=== PATIENT | female | born 1950 | race Caucasian/White ===

== ENCOUNTER 2019-09-28 15:46 | Outpatient (CLI) | payer MEDICARE, SELFPAY ==
[2019-09-28 16:27] LABS: Creatinine Urine 80.74 mg/dL (40-278)
[2019-09-28 16:48] LABS: MALB Creatinine Ratio 5.6 mg/g (0-30); Microalbumin Urine Random 4.6 mg/L
[2019-10-02 09:44] LABS: Vitamin D 25 Hydroxy 69 ng/mL (30-100)
== END 2019-09-28 15:47 | disposition home or self-care (01) ==
LOC: CHSLAB 15:49
PROVIDERS: PCP Nurse Practitioner Family; Visit Provider Internal Medicine Endocrinology, Diabetes & Metabolism
DX: E11.65 Type 2 diabetes mellitus with hyperglycemia (principal); E55.9 Vitamin D deficiency, unspecified
CPT/HCPCS: 36415; 82043; 82306

== ENCOUNTER 2020-02-09 09:13 | Outpatient (RCR) | payer MEDICARE, SELFPAY ==
--- NOTE | 2020-02-09 10:01 | PTOPEVAL ---
Thank you for referring Nessa Mast to [facility].? The patient is scheduled to be seen for therapy? ____x/week for ___ weeks. Please review, sign, date and return this plan of care MADALYN. I agree with and certify that the following plan of care is medically necessary. Referring Physician Date Admitting Provider: Attending Provider: Brooke Ahumada NP Referring Provider: *PT Outpatient Evaluation Start: 02/09/20 09:15 Freq: Status: Active Protocol: Document 02/09/20 09:45 [facility] (Rec: 02/09/20 10:01 [facility] [id number]) Therapy Assessment Status Assessment Status Assessment Status Evaluation Outpatient Past Medical History Cardiovascular History Hx Chest Pain Yes Hx Hypertension Yes Gastrointestinal History Hx Cholecystectomy Yes Hx Gastroesophageal Reflux Disease Yes Musculoskeletal History Hx Fractures Yes: rt arm Hx Orthopedic Surgery Yes: ta knee Endocrine History Hx Diabetes Yes Reproductive History Hx Hysterectomy Yes Hx Post Menopausal Yes Psychosocial History Hx Anxiety Yes Hx Depression Yes Evaluation Information Problem Diagnosis lumbar spondylosis Onset 02/04/20 Additional Evaluation Detail oswestry = 32% Subjective Information patient reports she is having Query Text:As Reported By Patient/ a lot of pain in her back. Family she reports she has pain with all activities. she reports she has decreased pain when sitting or laying down and resting. she reports she has been having pain in the back for a few months. she reports no injections and no changes in medication. she reports she has had no recent x-rays or imaging. she reports she has no pain down the legs, but does have majority of pain in the lower back and L side posterior hip. she reports standing is worst activity for her to complete. Prior Level of Function Comments Additional Prior Level of Function prior to a few months ago, Comments patient reports feeling pretty good overall. she reports she drives around in her car a lot. Pain Assessment Timing of Pain Assessment T
--- NOTE | 2020-02-23 10:05 | PCPTNOTE ---
02/23/20-pt called and cancelled today's appointment secondary to not having any hot water. KARISSA.
== END 2020-03-10 15:28 | disposition home or self-care (01) ==
LOC: CHSPT 09:13
PROVIDERS: PCP Nurse Practitioner Family; Visit Provider Nurse Practitioner Family
DX: M47.816 Spondylosis without myelopathy or radiculopathy, lumbar region (principal)
CPT/HCPCS: 97014; 97110; 97161; G0283

== ENCOUNTER 2020-02-27 11:36 | Emergency (ER) | payer MEDICARE, SELFPAY ==
--- NOTE | ~2020-02-27 | XR_ITS ---
XR ankle RT min 3V 02/27/2020 12:00 INDICATION: Right ankle pain PROCEDURE: 4 views right ankle COMPARISON: No prior studies for comparison. FINDINGS: Fracture, dislocation or subluxation is not identified. The soft tissues appear within norm al limits. No foreign bodies are identified. IMPRESSION: 1: NO ACUTE BONE OR JOINT ABNORMALITY IDENTIFIED. Reviewed, dictated and finalized at location A.
--- NOTE | ~2020-02-27 | XR_ITS ---
EXAMINATION: XR chest 2V 02/27/2020 12:09 INDICATION: Status post fall. Bruising to the ribs. PROCEDURE: 2 view chest COMPARISON: 06/10/2019 FINDINGS: The lungs are clear. The cardiomediastinal silhouette is within normal limits. There are no pleural effusions. There is no pneumothorax suspected. There are age indeterminant right rib fra ctures. Elevated right diaphragm appears chronic. IMPRESSION: 1: No acute cardiopulmonary disease. 2: Age-indeterminate right rib fractures. Reviewed, dictated and finalized at location A.
[2020-02-27 11:56] VITALS: BP 139/77; PULSE 78; RESP 18; TEMP 36.7; O2SAT 98
--- NOTE | 2020-02-27 11:56 | ED.FALL ---
HPI - Fall General Chief Complaint: Extremity Injury, Lower Stated Complaint: Hurt right foot Source: patient Mode of arrival: ambulatory History of Present Illness HPI Narrative: Pt got up out of chair and fell down, she states she might have gotten a little lightheaded from getting up too quick. She has no loc, and has pain in r anle and r chest wall complaint: fall Onset (ago): hour(s) Fall from: standing Fall witnessed: no Place fall occurred: home Loss of consciousness: none Symptoms prior to fall: lightheadedness (gettting up too quickly) Location of injury: chest Location of injury - extremities: Left: ankle Severity: moderate Associated symptoms (after fall): denies Related Data Home Medications Medication Instructions Recorded Confirmed aspirin 81 mg tablet,delayed 81 mg PO DAILY 04/07/19 11/04/19 release blood sugar diagnostic #10 each 04/07/19 11/04/19 magnesium oxide 400 mg PO DAILY 04/07/19 11/04/19 nitroglycerin 0.4 mg sublingual 0.4 mg SUBLINGUAL Q5M PRN 04/07/19 11/04/19 tablet cholecalciferol (vitamin D3) 1,250 50,000 unit PO .twice weekly cap 06/04/19 11/04/19 mcg (50,000 unit) capsule semaglutide 1 mg/dose (2 mg/1.5 0.25 mg SUB-Q WEEKLY 06/04/19 11/04/19 mL) subcutaneous pen injector empagliflozin 10 mg tablet 10 mg PO DAILY 11/08/19 11/08/19 insulin syringe-needle U-100 0.5 #10 each 11/08/19 11/08/19 mL 30 gauge x 5/16 lancets 30 gauge #25 each 11/08/19 11/08/19 Allergies Allergy/AdvReac Type Severity Reaction Status Date / Time atorvastatin Allergy Severe Joint Pain Verified 02/04/20 08:13 cephalexin Allergy Mild Rash Verified 02/04/20 08:13 Review of Systems Review of Systems: All systems reviewed & are unremarkable except as noted in HPI and below PMFSH Past Medical History Medical History (Updated 02/27/20 @ 12:39 by Kelly Dickosn MD) Arm pain Blood type A+ CAD (coronary artery disease) Decreased hearing Depression Encounter for pre-operative examination Fatigue DENEEN (generalized anxiety disorder) Hyperlipidemia associated with type 2 diabetes mellitus Hypertension associated with diabetes Left hip pain Left shoulder pain Obesity, Class I, BMI 30-34.9 Osteoarthritis of lumbar spine Right humeral fracture Surgical repair, plate and 8 screws Type 2 diabetes mellitus URI (upper respiratory infection) Urinary urgency Surgical History Surgical History H/O cataract extraction History of back surgery (~1991) History of coronary artery stent placement History of total knee arthroplasty Family History Family History Father , Age 59 Acute myocardial infarction Mother , Age 84 Acute myocardial infarction Other Cystic fibrosis Other Cerebrovascular accident Family history of arthritis Hypertension Social History Social History Smoking status: Never smoker Alcohol intake: current Substance use: never 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 Gender identity (if verbalized by the patient): Female Exam Const: General: healthy appearing, no acute distress and alert Nutritional Appearance: well nourished Orientation/consciousness: patient oriented x3 HENMT: Head: normal to inspection Eyes: Conjunctivae: conjunctivae normal Pupils: Equal, round and reactive pupils present Neck: Neck: normal visual inspection Chest: Other: eccymosis to right lateral chest wall, no pain with deep breaths Resp: Effort & Inspection: normal respiratory effort Auscultation: clear to auscultation bilaterally Cardio: Rate: regular rate Rhythm: regular rhythm GI: GI Palp: Yes Soft to palpation, No Tenderness to palpation present (GI), No Guarding due to palpation present (GI) and No Rigid due to palpa
== END 2020-02-27 13:10 | disposition home or self-care (01) ==
PROVIDERS: Emergency Provider Emergency Medicine; PCP Nurse Practitioner Family
DX: S93.421A Sprain of deltoid ligament of right ankle, initial encounter (principal); S20.211A Contusion of right front wall of thorax, initial encounter; W19.XXXA Unspecified fall, initial encounter
CPT/HCPCS: 29515; 71046; 73610; 99283; 99284; L4350

== ENCOUNTER 2020-05-10 16:17 | Outpatient (CLI) | payer MEDICARE, SELFPAY ==
[2020-05-10 17:10] LABS: SARS-CoV-2 Ag Positive (Negative)
== END 2020-05-10 16:18 | disposition home or self-care (01) ==
PROVIDERS: PCP Nurse Practitioner Family; Visit Provider Nurse Practitioner Family
DX: U07.1 COVID-19 (principal)
CPT/HCPCS: 87426

== ENCOUNTER 2020-06-30 07:57 | Outpatient (CLI) | payer MEDICARE, SELFPAY ==
[2020-06-30 08:15] LABS: Basophils Absolute Auto 0.05 K/mm3 (0.00-0.10); Basophils Percent Auto 0.7 % (0.0-1.0); Eosinophils Absolute Auto 0.16 K/mm3 (0.02-0.50); Eosinophils Percent Auto 2.1 % (1.0-6.0); Hematocrit 41.4 % (35.0-42.0); Hemoglobin 13.2 g/dL (11.7-13.8); Immature Granulocyte Absolute 0.02 K/mm3 (0.00-0.00); Immature Granulocyte Percent A 0.3 % (0.0-0.0); Lymphocytes Absolute Auto 3.24 K/mm3 (1.10-4.50); Lymphocytes Percent Auto 43.5 % (18.0-42.0); Mean Corpuscular HGB Conc 31.9 g/dL (32.0-36.0); Mean Platelet Volume 9.6 fl (9.2-11.8); Monocytes Absolute Auto 0.55 K/mm3 (0.10-0.90); Monocytes Percent Auto 7.4 % (2.0-11.0); Neutrophils Absolute Auto 3.4 K/mm3 (1.7-7.2); Platelet Count Result 215 K/mm3 (150-420); Red Blood Count 4.55 M/mm3 (4.20-5.40); White Blood Count 7.5 K/mm3 (4.8-10.8)
[2020-06-30 08:32] LABS: Hemoglobin A1C 6.4 % (<5.7)
[2020-06-30 08:54] LABS: Alanine Aminotransferase 29 U/L (14-59); Albumin Level 3.9 g/dL (3.4-5.0); Alkaline Phosphatase 51 U/L (46-116); Anion Gap 8 mmol/L (8-16); Aspartate Amino Transferase 15 U/L (15-37); Bilirubin,Total 0.7 mg/dL (0.00-1.00); Blood Urea Nitrogen 17 mg/dL (7-18); Calcium 9.6 mg/dL (8.5-10.1); Carbon Dioxide 31 mmol/L (21-32); Chloride 104 mmol/L (98-108); Cholesterol 160 mg/dL (0-200); Estimated Glomerular Filt Rate 49; Glucose 164 mg/dL (70-99); HDL Direct 57 mg/dL (40-60); LDL Cholesterol Calculated 58 mg/dL (<130); Osmolality Calculated 301 mOsm/kg (285-295); Potassium 4.1 mmol/L (3.5-5.1); Sodium 143 mmol/L (136-145); Total Protein 7.2 g/dL (6.4-8.2); Triglycerides 224 mg/dL (0-150)
== END 2020-06-30 07:58 | disposition home or self-care (01) ==
LOC: CHSLAB 08:02
PROVIDERS: PCP Nurse Practitioner Family; Visit Provider Nurse Practitioner Family
DX: E11.59 Type 2 diabetes mellitus with other circulatory complications (principal); I10 Essential (primary) hypertension; E11.69 Type 2 diabetes mellitus with other specified complication; E78.5 Hyperlipidemia, unspecified
CPT/HCPCS: 36415; 80053; 80061; 83036; 85025

== ENCOUNTER 2020-08-15 14:34 | Outpatient (CLI) | payer MEDICARE, SELFPAY ==
[2020-08-15 15:49] LABS: Anion Gap 12 mmol/L (8-16); Blood Urea Nitrogen 19 mg/dL (7-18); Calcium 8.9 mg/dL (8.5-10.1); Carbon Dioxide 27 mmol/L (21-32); Chloride 102 mmol/L (98-108); Estimated Glomerular Filt Rate 53; Glucose 165 mg/dL (70-99); Osmolality Calculated 298 mOsm/kg (285-295); Potassium 4.1 mmol/L (3.5-5.1); Sodium 141 mmol/L (136-145)
[2020-08-17 10:39] LABS: Vitamin D 25 Hydroxy 50 ng/mL (30-100)
== END 2020-08-15 14:35 | disposition home or self-care (01) ==
LOC: CHSLAB 14:36
PROVIDERS: PCP Nurse Practitioner Family; Visit Provider Internal Medicine Endocrinology, Diabetes & Metabolism
DX: E55.9 Vitamin D deficiency, unspecified (principal)
CPT/HCPCS: 36415; 80048; 82306

== ENCOUNTER 2020-11-13 10:59 | Outpatient (RCR) | payer MEDICARE, SELFPAY ==
--- NOTE | 2020-11-13 11:27 | PTOPEVAL ---
Thank you for referring Nessa Mast to [facility].? The patient is scheduled to be seen for therapy? __3__x/week for 12 visits. Please review, sign, date and return this plan of care MADALYN. I agree with and certify that the following plan of care is medically necessary. Referring Physician Date Admitting Provider: Attending Provider: TEENA HARRIS Referring Provider: *PT Outpatient Evaluation Start: 11/13/20 10:57 Freq: Status: Active Protocol: Document 11/13/20 11:06 [facility] (Rec: 11/13/20 11:27 [id number]) Therapy Assessment Status Assessment Status Assessment Status Evaluation Outpatient Past Medical History Cardiovascular History Hx Chest Pain Yes Hx Hypertension Yes Gastrointestinal History Hx Cholecystectomy Yes Hx Gastroesophageal Reflux Disease Yes Musculoskeletal History Hx Fractures Yes: rt arm Hx Orthopedic Surgery Yes: ta knee Endocrine History Hx Diabetes Yes Reproductive History Hx Post Menopausal Yes Psychosocial History Hx Anxiety Yes Hx Depression Yes Evaluation Information Problem Diagnosis right shoulder pain Onset 10/29/20 Subjective Information Pt. reports she fell while at Query Text:[place] airport [place] Family dislocating the right shoulder . She reports she had the arm put in place in the ER that evening. She states that she was given a sling and not given any instruction. She reports she has not been doing anything with her arm. She states that she has not been given clear instruction regarding her shoulder. She states that her goal is to regain normal shoulder mobility and strength and discontinue her sling. Prior Level of Function Activity Level (Last 3 Months) Occupation retired Hand Dominance Right Activity of Daily Living Ability Independent Indoor/Home Mobility Independent Community Mobility Independent Stairs Ability Independent Functional Cognition (Planning, Shopping Independent , Taking Medications) Cooking Yes Cleaning Yes Laundry Yes Shopping Yes
--- NOTE | 2020-11-13 13:03 | PTOPEVAL ---
Thank you for referring Nessa Mast to [facility].? The patient is scheduled to be seen for therapy? _3___x/week for 12 visits. Please review, sign, date and return this plan of care MADALYN. I agree with and certify that the following plan of care is medically necessary. Referring Physician Date Admitting Provider: Attending Provider: TEENA HARRIS Referring Provider: *PT Outpatient Evaluation Start: 11/13/20 10:57 Freq: Status: Active Protocol: Document 11/13/20 11:06 [facility] (Rec: 11/13/20 11:27 [id number]) Therapy Assessment Status Assessment Status Assessment Status Evaluation Outpatient Past Medical History Cardiovascular History Hx Chest Pain Yes Hx Hypertension Yes Gastrointestinal History Hx Cholecystectomy Yes Hx Gastroesophageal Reflux Disease Yes Musculoskeletal History Hx Fractures Yes: rt arm Hx Orthopedic Surgery Yes: ta knee Endocrine History Hx Diabetes Yes Reproductive History Hx Post Menopausal Yes Psychosocial History Hx Anxiety Yes Hx Depression Yes Evaluation Information Problem Diagnosis right shoulder pain Onset 10/29/20 Subjective Information Pt. reports she fell while at Query Text:As Reported By Patient/ the airport on [place] 29 Family dislocating the right shoulder . She reports she had the arm put in place in the ER that evening. She states that she was given a sling and not given any instruction. She reports she has not been doing anything with her arm. She states that she has not been given clear instruction regarding her shoulder. She states that her goal is to regain normal shoulder mobility and strength and discontinue her sling. Prior Level of Function Activity Level (Last 3 Months) Occupation retired Hand Dominance Right Activity of Daily Living Ability Independent Indoor/Home Mobility Independent Community Mobility Independent Stairs Ability Independent Functional Cognition (Planning, Shopping Independent , Taking Medications) Cooking Yes Cleaning Yes Laundry Yes Shopping Yes
--- NOTE | 2020-12-07 16:20 | PCPTNOTE ---
Patient is a 70 year old female that participated in 9 visits for R shoulder pain. The patient underwent an MRI and has a large rotator cuff tear. The patient is going to an orthopedic surgeon on December 27 for the next steps. The patient is to be discharged from therapy at this time. Please refer to previous treatment note for discharge status. Thank you, Nava Osullivan DPT
== END 2020-12-01 08:45 | disposition home or self-care (01) ==
LOC: CHSPT 10:59
DX: M25.511 Pain in right shoulder (principal)
CPT/HCPCS: 97014; 97110; 97161; G0283

== ENCOUNTER 2020-12-02 09:05 | Outpatient (CLI) | payer MEDICARE, SELFPAY ==
--- NOTE | ~2020-12-02 | MR_ITS ---
EXAMINATION: MR shoulder RT wo con DATE: 12/02/2020 09:46 INDICATION: Unspecified dislocation of the right shoulder joint. TECHNIQUE: Magnetic resonance imaging (MRI) of the right shoulder was performed without intravenous c ontrast. Sequences included axial PD-weighted FS FSE, coronal oblique PD-weighted FS FSE, coronal obl ique T2-weighted FS FSE, sagittal PD-weighted FS FSE, and sagittal T1-weighted SE. COMPARISON: None. FINDINGS: Coracoacromial arch: The acromion undersurface is curved in morphology (type II). This is due in part to small subacromial spurs and likely chronic remodeling of the undersurface which now parallels the contour of the humer al head. There is mild thickening of the acromial side of the coracoacromial ligament. Mild to modera te acromioclavicular osteoarthritis with small predominately cephalad directed hypertrophic osteophyt es and mild cystic change at the lateral head of the clavicle. Rotator cuff: Large full-thickness rotator cuff tear along the entire greater tuberosity insertion of the supraspin atus and infraspinatus tendons and the cephalad two thirds of the lesser tuberosity footplate of the subscapularis tendon. This is likely chronic given the severe associated fatty atrophy of the associa verito rotator cuff musculature. There is retraction of the supraspinatus tear margin to slightly medial to the level of the rim of the glenoid. There is some heterotopic ossification along the similarly m edially retracted infraspinatus tear margin. Mild tendinopathy of the teres minor tendon with small p artial tear along the cephalad margin of the myotendinous junction. No significant teres minor muscul ar atrophy. Biceps tendon, glenoid labrum and glenohumeral cartilage: Longitudinal split tearing of the long head biceps tendon which is medially subluxed across the lesse r tuberosity footplate of the torn subscapularis tendon. There is a longitudinal split tearing of the long head biceps tendon. Degenerative tearing at the anteroinferior and posterosuperior glenoid labr um. There is partial thickness cartilage loss which appears to involve greater than 50% the cartilage thickness with smooth chondral surface along the cephalad margin of the glenoid. Additional mild par tial thickness cartilage loss with some chondral surface irregularity along the humeral head. Fluid: Small glenohumeral joint effusion which extends through the full-thickness rotator cuff tear into the subacromial/subdeltoid bursa. No loose osteochondral bodies. Bones: Old fracture at the surgical neck of the proximal right humerus which has without significant deformi ty. There is metallic magnetic field artifact surrounding a likely lateral plate and screw fixation a long the proximal humeral diaphysis which mildly limits evaluation below the level of the shoulder. T here is cephalad migration of the humeral head with respect to the glenoid with narrowing of the suba cromial space. IMPRESSION: 1. 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 Mild teres minor tendinopathy with mild partial tear along the cephalad margin of the myotendinous junction. 2. Mild to moderate glenohumeral osteoarthritis with degenerative tearing of the posterosuperior and anteroinferior glenoid labrum and likely reactive small glenohumeral joint effusion. 3. Old healed fracture to surgical neck of the proximal right humerus. 4. Mild to moderate acromioclavicular osteoarthritis. Reviewed, dictated and finalized at location A. IMPRESSION: 1. Large chronic full-thickness tear of the cyst supraspinatus, infraspinatus a nd cephalad two thirds of the subscapularis tendon
== END 2020-12-02 09:06 | disposition home or self-care (01) ==
LOC: CHSIMG 09:06
PROVIDERS: PCP Nurse Practitioner Family; Visit Provider Nurse Practitioner Family
DX: S43.004A Unspecified dislocation of right shoulder joint, initial encounter (principal); M25.611 Stiffness of right shoulder, not elsewhere classified
CPT/HCPCS: 73221

== ENCOUNTER 2020-12-06 07:30 | Emergency (ER) | payer MEDICARE, SELFPAY ==
--- NOTE | ~2020-12-06 | XR_ITS ---
EXAMINATION: XR knee RT min 4V DATE: 12/06/2020 08:32 INDICATION: Right knee pain TECHNIQUE: Five views of the right knee were obtained on six radiographs. COMPARISON: 11/11/2018 FINDINGS: There are changes of total knee arthroplasty. No fracture is identified. There is chronic l ateral subluxation of the patella. Soft tissue swelling surrounds the knee. A small knee joint effusi on is present. Calcified atherosclerosis is noted. IMPRESSION: 1. Right knee swelling without acute osseous abnormality. Reviewed, dictated and finalized at location B.
[2020-12-06 07:40] VITALS: BP 147/84; PULSE 102; RESP 16; TEMP 36.6; O2SAT 96
--- NOTE | 2020-12-06 08:41 | ED.FALL ---
HPI - Fall General Chief Complaint: Fall Stated Complaint: KNEE PAIN FELL OUT OF BED Time Seen by Provider: 12/06/20 08:00 Source: patient Mode of arrival: ambulatory Limitations: no limitations History of Present Illness HPI Narrative: Patient comes in after rolling out of bed about 7am. She landed with weight hitting on her right knee, causing bruising. She is worried she has injured her metal joint on the knee. Discomfort is right knee has been mild, a dull ache, and has been ongoing since the fall about 30m minutes ago. She has been able to walk without difficulty. Pain has not lessened or became more severe with ambulation. No other signs / symptoms. MD complaint: fall Onset (ago): minute(s) Fall from: out of bed Place fall occurred: home Loss of consciousness: none Prolonged down time: no Symptoms prior to fall: none Severity: mild Quality: burning and dull Related Data Home Medications Medication Instructions Recorded Confirmed aspirin 81 mg tablet,delayed 81 mg PO DAILY 04/07/19 12/06/20 release blood sugar diagnostic #10 each 04/07/19 12/06/20 cholecalciferol (vitamin D3) 1,250 50,000 unit PO .twice weekly cap 06/04/19 12/06/20 mcg (50,000 unit) capsule semaglutide 1 mg/dose (2 mg/1.5 0.25 mg SUB-Q WEEKLY 06/04/19 12/06/20 mL) subcutaneous pen injector empagliflozin 10 mg tablet 10 mg PO DAILY 11/08/19 12/06/20 insulin syringe-needle U-100 0.5 #10 each 11/08/19 12/06/20 mL 30 gauge x 5/16 lancets 30 gauge #25 each 11/08/19 12/06/20 Allergies Allergy/AdvReac Type Severity Reaction Status Date / Time atorvastatin Allergy Severe Joint Pain Verified 11/10/20 15:14 cephalexin Allergy Mild Rash Verified 11/10/20 15:14 Review of Systems Constitutional: Constitutional: Reports no additional constitutional complaints Eyes: Eyes: Reports no additional eye complaints ENT: Reports system reviewed and no additional complaints, except as documented Cardiovascular: Cardiovascular: Reports no additional cardiovascular complaints Respiratory: Respiratory: Reports no additional respiratory complaints Gastrointestinal: Gastrointestinal: Reports no additional gastrointestinal complaints Genitourinary: Genitourinary: Reports no additional female genitourinary complaints Musculoskeletal: Musculoskeletal: Reports no additional musculoskeletal complaints Integumentary/Breasts: Skin/Breast: Reports system reviewed and no additional complaints, except as docu Neurologic: Reports system reviewed and no additional complaints, except as documented Psychiatric: Psychiatric: Reports no additional psychiatric complaints Endocrine: Endocrine: Reports no additional endocrine complaints Hematologic/Lymphatic: Hematologic/Lymphatic: Reports no additional hematologic/lymphatic complaints Allergic/Immunologic: Allergic/Immunologic: Reports no additional allergic/immunologic complaints [facility] Past Medical History Medical History (Updated 12/07/20 @ 04:23 by Guy Christopher MD) Arm pain Blood type A+ CAD (coronary artery disease) Decreased hearing Depression Encounter for pre-operative examination Fatigue DENEEN (generalized anxiety disorder) Hyperlipidemia associated with type 2 diabetes mellitus Hypertension associated with diabetes Left hip pain Left shoulder pain Obesity, Class I, BMI 30-34.9 Osteoarthritis of lumbar spine Right humeral fracture Surgical repair, plate and 8 screws Type 2 diabetes mellitus URI (upper respiratory infection) Urinary urgency Surgical History Surgical History H/O cataract extraction History of back surgery (~1991) History of coronary artery stent placement History of total knee arthroplasty Family History Family History Father , Age 59 Acute myocardial infarction Mother , Age 84 Acute myocardial infarction Other Cystic fibrosis Ot
[2020-12-06 08:57] VITALS: PULSE 100; RESP 20; TEMP 36.1; O2SAT 98
== END 2020-12-06 08:57 | disposition home or self-care (01) ==
PROVIDERS: Emergency Provider Emergency Medicine; PCP Nurse Practitioner Family
DX: S80.01XA Contusion of right knee, initial encounter (principal); W06.XXXA Fall from bed, initial encounter
CPT/HCPCS: 73564; 99282; 99283

== ENCOUNTER 2021-01-25 10:58 | Outpatient (RCR) | payer MEDICARE, SELFPAY ==
--- NOTE | 2021-01-25 11:45 | PTOPEVAL ---
Thank you for referring Nessa Mast to [facility] [place] The patient is scheduled to be seen for therapy? ____x/week for ___ weeks. Please review, sign, date and return this plan of care MADALYN. I agree with and certify that the following plan of care is medically necessary. Referring Physician Date Admitting Provider: Attending Provider: Joshua Sifuentes, TRICIA Referring Provider: *PT Outpatient Evaluation Start: 01/25/21 11:07 Freq: Status: Active Protocol: Document 01/25/21 11:10 [facility] (Rec: 01/25/21 11:41 [facility] [id number]) Therapy Assessment Status Assessment Status Assessment Status Evaluation Outpatient Past Medical History Cardiovascular History Hx Chest Pain Yes Hx Hypertension Yes Gastrointestinal History Hx Cholecystectomy Yes Hx Gastroesophageal Reflux Disease Yes Musculoskeletal History Hx Fractures Yes: rt arm Hx Orthopedic Surgery Yes: ta knee Endocrine History Hx Diabetes Yes Reproductive History Hx Post Menopausal Yes Psychosocial History Hx Anxiety Yes Hx Depression Yes Evaluation Information Problem Diagnosis R shoulder pain, RTC arthropathy Onset 10/29/20 Additional Evaluation Detail quick dash = Subjective Information patient reports she fell on Query Text:As Reported By Patient and injured her R Family shoulder. she reports had an MRI back on 12/02/20 that reveals a chronic full thickness RTC tear with muscle atrophy and GH OA with a degenerative labral tear. she presents this date without having been able to lift/move her R shoulder/arm away from her body since the fall. she reports she has no pain. she reports she has not had any surgical consult yet. Prior Level of Function Comments Additional Prior Level of Function prior to fall, no issues with Comments the R shoulder, full mobility, and normal strength Pain Assessment Timing of Pain Assessment Timing of Pain Assessment Assessment Self Report Self Report Pain Level 0 Pain Score Pain Score 0: Self Report Upper Extremity Range of Motion Scapular/ Shoulder Range of Motion Right Shoulder Flexion - Active 30 Shoulder Medial Rotation - Active functional reach to midline Query Text:Reach Behi
--- NOTE | 2021-01-25 11:56 | PTOPEVAL ---
Thank you for referring Nessa Mast to [facility] [place]Note 3[facility]? The patient is scheduled to be seen for therapy? ____x/week for ___ weeks. Please review, sign, date and return this plan of care MADALYN. I agree with and certify that the following plan of care is medically necessary. Referring Physician Date Admitting Provider: Attending Provider: Joshua Sifuentes, PA Referring Provider: *PT Outpatient Evaluation Start: 01/25/21 11:07 Freq: Status: Active Protocol: Document 01/25/21 11:10 [facility] (Rec: 01/25/21 11:41 [facility] [id number]) Therapy Assessment Status Assessment Status Assessment Status Evaluation Outpatient Past Medical History Cardiovascular History Hx Chest Pain Yes Hx Hypertension Yes Gastrointestinal History Hx Cholecystectomy Yes Hx Gastroesophageal Reflux Disease Yes Musculoskeletal History Hx Fractures Yes: rt arm Hx Orthopedic Surgery Yes: ta knee Endocrine History Hx Diabetes Yes Reproductive History Hx Post Menopausal Yes Psychosocial History Hx Anxiety Yes Hx Depression Yes Evaluation Information Problem Diagnosis R shoulder pain, RTC arthropathy Onset 10/29/20 Additional Evaluation Detail quick dash = 100% functionally declined Subjective Information patient reports she fell on Query Text:As Reported By Patient and injured her R Family shoulder. she reports had an MRI back on 12/02/20 that reveals a chronic full thickness RTC tear with muscle atrophy and GH OA with a degenerative labral tear. she presents this date without having been able to lift/move her R shoulder/arm away from her body since the fall. she reports she has no pain. she reports she has not had any surgical consult yet. Prior Level of Function Comments Additional Prior Level of Function prior to fall, no issues with Comments the R shoulder, full mobility, and normal strength Pain Assessment Timing of Pain Assessment Timing of Pain Assessment Assessment Self Report Self Report Pain Level 0 Pain Score Pain Score 0: Self Report Upper Extremity Range of Motion Scapular/ Shoulder Range of Motion Right Shoulder Flexion - Active 30 Shoulder Flexion - Passiv
--- NOTE | 2021-02-20 15:30 | PTOPEVAL ---
Thank you for referring Nessa Mast to [facility].? The patient is scheduled to be seen for therapy? ____x/week for ___ weeks. Please review, sign, date and return this plan of care MADALYN. I agree with and certify that the following plan of care is medically necessary. Referring Physician Date Admitting Provider: Attending Provider: Joshua Sifuentes, PA Referring Provider: *PT Outpatient Evaluation Start: 01/25/21 11:07 Freq: Status: Active Protocol: Document 02/20/21 14:26 [facility] (Rec: 02/20/21 15:13 [facility] [id number]) Therapy Assessment Status Assessment Status Assessment Status Progress Outpatient Past Medical History Cardiovascular History Hx Chest Pain Yes Hx Hypertension Yes Gastrointestinal History Hx Cholecystectomy Yes Hx Gastroesophageal Reflux Disease Yes Musculoskeletal History Hx Fractures Yes: rt arm Hx Orthopedic Surgery Yes: ta knee Endocrine History Hx Diabetes Yes Reproductive History Hx Post Menopausal Yes Psychosocial History Hx Anxiety Yes Hx Depression Yes Evaluation Information Problem Diagnosis R shoulder pain, RTC arthropathy Onset 10/29/20 Subjective Information patient reports she continues Query Text:As Reported By Patient/ to have pain in the R shoulder Family and pain in her bilateral hands this date. she reports she continues to stuggle with use of the R shoulder/arm away from her body/side. Pain Assessment Timing of Pain Assessment Timing of Pain Assessment Assessment Pain Scale Pain Scale Used Numeric (1 - 10) Self Report Pain Assessment Right Shoulder(s) Reported Pain Level 6 Pain Score Pain Score 6: Self Report Interventions Used Interventions Used By Clinicians Activity or ADL's,Electrical Stimulation,Exercise,Heat Upper Extremity Range of Motion General Upper Extremity Range of Motion Gross Upper Extremity Range of Motion 155 degrees supine arom R Comments shoulder flexion - patient unable to achieve sitting or standing shoulder flexion past 30-40 degrees Upper Extremity Muscle Strength Testing General Upper Extremity Strength Gross Upper Extremity Strength Comments R shoudler flex, abd, and ER = 2/5 General Exercise General Exercises Exercise Description -passive shoulder rom 15 Query Text:Record Sets, Reps, minutes Resistance, and Position
--- NOTE | 2021-02-22 14:43 | PTOPEVAL ---
Thank you for referring Nessa Mast to [facility].? The patient is scheduled to be seen for therapy? ____x/week for ___ weeks. Please review, sign, date and return this plan of care MADALYN. I agree with and certify that the following plan of care is medically necessary. Referring Physician Date Admitting Provider: Attending Provider: Joshua Sifuentes, PA Referring Provider: *PT Outpatient Evaluation Start: 01/25/21 11:07 Freq: Status: Active Protocol: Document 02/20/21 14:26 [facility] (Rec: 02/20/21 15:13 [facility] [id number]) Therapy Assessment Status Assessment Status Assessment Status Progress Outpatient Past Medical History Cardiovascular History Hx Chest Pain Yes Hx Hypertension Yes Gastrointestinal History Hx Cholecystectomy Yes Hx Gastroesophageal Reflux Disease Yes Musculoskeletal History Hx Fractures Yes: rt arm Hx Orthopedic Surgery Yes: ta knee Endocrine History Hx Diabetes Yes Reproductive History Hx Post Menopausal Yes Psychosocial History Hx Anxiety Yes Hx Depression Yes Evaluation Information Problem Diagnosis R shoulder pain, RTC arthropathy Onset 10/29/20 Subjective Information patient reports she continues Query Text:As Reported By Patient/ to have pain in the R shoulder Family and pain in her bilateral hands this date. she reports she continues to stuggle with use of the R shoulder/arm away from her body/side. Pain Assessment Timing of Pain Assessment Timing of Pain Assessment Assessment Pain Scale Pain Scale Used Numeric (1 - 10) Self Report Pain Assessment Right Shoulder(s) Reported Pain Level 6 Pain Score Pain Score 6: Self Report Interventions Used Interventions Used By Clinicians Activity or ADL's,Electrical Stimulation,Exercise,Heat Upper Extremity Range of Motion General Upper Extremity Range of Motion Gross Upper Extremity Range of Motion 155 degrees supine arom R Comments shoulder flexion - patient unable to achieve sitting or standing shoulder flexion past 30-40 degrees Upper Extremity Muscle Strength Testing General Upper Extremity Strength Gross Upper Extremity Strength Comments R shoudler flex, abd, and ER = 2/5 General Exercise General Exercises Exercise Description -passive shoulder rom 15 Query Text:Record Sets, Reps, minutes Resistance, and Position
--- NOTE | 2021-03-15 11:08 | PTOPEVAL ---
Thank you for referring Nessa Mast to [facility].? The patient is scheduled to be seen for therapy? ____x/week for ___ weeks. Please review, sign, date and return this plan of care MADALYN. I agree with and certify that the following plan of care is medically necessary. Referring Physician Date Admitting Provider: Attending Provider: Joshua Sifuentes, PA Referring Provider: *PT Outpatient Evaluation Start: 01/25/21 11:07 Freq: Status: Active Protocol: Document 03/15/21 10:07 [facility] (Rec: 03/15/21 11:08 [facility] [id number]) Therapy Assessment Status Assessment Status Assessment Status Progress Outpatient Past Medical History Cardiovascular History Hx Chest Pain Yes Hx Hypertension Yes Gastrointestinal History Hx Cholecystectomy Yes Hx Gastroesophageal Reflux Disease Yes Musculoskeletal History Hx Fractures Yes: rt arm Hx Orthopedic Surgery Yes: ta knee Endocrine History Hx Diabetes Yes Reproductive History Hx Post Menopausal Yes Psychosocial History Hx Anxiety Yes Hx Depression Yes Evaluation Information Problem Diagnosis R shoulder pain, RTC arthropathy Subjective Information Patient reports that she was Query Text:As Reported By Patient/ lifting her arm above shoulder Family level the other day. Patient reports she has not had any pain and is still not considering surgery. Pain Assessment Timing of Pain Assessment Timing of Pain Assessment Assessment Self Report Self Report Pain Level 0 Pain Score Pain Score 0: Self Report Upper Extremity Range of Motion Scapular/ Shoulder Range of Motion Right Shoulder Flexion - Active 40 Shoulder Flexion - Passive 160 Shoulder Medial Rotation - Active 53 Shoulder Medial Rotation - Active functional reach to thoracic Query Text:Reach Behind the Back spine with shoulder adduction, IR, and minimal trunk flexion . Shoulder Lateral Rotation - Active 70 Shoulder Lateral Rotation - Active functional reach to base of Query Text:Reach Behind the Head skull but has to use momentum to get arm up. Upper Extremity Muscle Strength Testing Scapular/Shoulder Right Shoulder Flexion Strength 2 Poor Shoulder Abduction Strength 2 Poor Shoulder Medial Rotation Strength 2 Poor Elbow/Forearm Right Elbow Flexion Strength 5 Normal Elbow Extension Strength 5 Normal Left Elbow Flexion Strength 5 Normal Elbow Extension Strength 5 Normal Pa
== END 2021-03-15 13:57 | disposition home or self-care (01) ==
LOC: CHSPT 10:58
PROVIDERS: PCP Nurse Practitioner Family; Visit Provider Physician Assistant
DX: M25.511 Pain in right shoulder (principal); M12.811 Other specific arthropathies, not elsewhere classified, right shoulder
CPT/HCPCS: 97014; 97110; 97161; G0283

== ENCOUNTER 2021-03-12 11:28 | Outpatient (CLI) | payer MEDICARE, SELFPAY ==
[2021-03-12 12:13] LABS: Creatinine Urine 77.31 mg/dL (40-278); MALB Creatinine Ratio 43.2 mg/g (0-30); Microalbumin Urine Random 33.4 mg/L
[2021-03-12 12:37] LABS: Alanine Aminotransferase 28 U/L (14-59); Albumin Level 3.7 g/dL (3.4-5.0); Alkaline Phosphatase 70 U/L (46-116); Anion Gap 13 mmol/L (8-16); Aspartate Amino Transferase 15 U/L (15-37); Bilirubin,Total 0.7 mg/dL (0.00-1.00); Blood Urea Nitrogen 12 mg/dL (7-18); Calcium 9.2 mg/dL (8.5-10.1); Carbon Dioxide 27 mmol/L (21-32); Chloride 104 mmol/L (98-108); Cholesterol 145 mg/dL (0-200); Estimated Glomerular Filt Rate 58; Glucose 178 mg/dL (70-99); HDL Direct 44 mg/dL (40-60); LDL Cholesterol Calculated 52 mg/dL (<130); Osmolality Calculated 301 mOsm/kg (285-295); Potassium 3.9 mmol/L (3.5-5.1); Sodium 144 mmol/L (136-145); Total Protein 7.4 g/dL (6.4-8.2); Triglycerides 247 mg/dL (0-150)
[2021-03-14 13:02] LABS: Vitamin D 25 Hydroxy 69 ng/mL (30-100)
== END 2021-03-12 11:29 | disposition home or self-care (01) ==
LOC: CHSLAB 11:32
PROVIDERS: PCP Nurse Practitioner Family; Visit Provider Internal Medicine Endocrinology, Diabetes & Metabolism
DX: E11.65 Type 2 diabetes mellitus with hyperglycemia (principal); E55.9 Vitamin D deficiency, unspecified
CPT/HCPCS: 36415; 80053; 80061; 82043; 82306

== ENCOUNTER 2021-04-03 09:47 | Emergency (ER) | payer MEDICARE, SELFPAY ==
--- NOTE | 2021-04-03 10:10 | ED.ABDPAIN ---
HPI - Abdominal Pain General Chief Complaint: Abdominal Pain Stated Complaint: upper stomach pain Time Seen by Provider: 04/03/21 10:10 Source: patient Mode of arrival: ambulatory Limitations: no limitations History of Present Illness HPI narrative: 70-year-old female with a history of hypertension, diabetes mellitus, coronary artery disease status post stents, partial hysterectomy, negative colonoscopy presents to the ER with -- a 5 minute episode of left lateral abdominal wall with spontaneous resolution. The patient has had no prior episodes of a similar pain. No nausea/ vomiting/ diarrhea. No fever. MD elicited complaint: abdominal pain Pain Consistency: now resolved Location: LUQ Severity: severe Pain scale (0-10): 8 Radiation: none Migration to: no migration Exacerbating factors: nothing Relieving factors: nothing Associated symptoms: denies other symptoms Related Data Home Medications Medication Instructions Recorded Confirmed aspirin 81 mg tablet,delayed 81 mg PO DAILY 04/07/19 04/03/21 release blood sugar diagnostic #10 each 04/07/19 04/03/21 cholecalciferol (vitamin D3) 1,250 50,000 unit PO .twice weekly cap 06/04/19 04/03/21 mcg (50,000 unit) capsule semaglutide 1 mg/dose (2 mg/1.5 0.25 mg SUB-Q WEEKLY 06/04/19 04/03/21 mL) subcutaneous pen injector empagliflozin 10 mg tablet 10 mg PO DAILY 11/08/19 04/03/21 insulin syringe-needle U-100 0.5 #10 each 11/08/19 04/03/21 mL 30 gauge x /16 lancets 30 gauge #25 each 11/08/19 04/03/21 metformin 500 mg PO BID 04/03/21 04/03/21 metoprolol tartrate 50 mg PO BID 04/03/21 04/03/21 Allergies Allergy/AdvReac Type Severity Reaction Status Date / Time atorvastatin Allergy Severe Joint Pain Verified 04/03/21 10:15 cephalexin Allergy Mild Rash Verified 04/03/21 10:15 Review of Systems Review of Systems: All systems reviewed & are unremarkable except as noted in HPI and below Constitutional: Constitutional: Reports as per HPI Eyes: Eyes: Reports as per HPI ENT: Reports system reviewed and no additional complaints, except as documented Cardiovascular: Cardiovascular: Reports as per HPI and Reports no additional cardiovascular complaints Respiratory: Respiratory: Reports as per HPI and Reports no additional respiratory complaints Gastrointestinal: Gastrointestinal: Reports as per HPI and Reports abdominal pain Genitourinary: Genitourinary: Reports no additional female genitourinary complaints Musculoskeletal: Musculoskeletal: Reports no additional musculoskeletal complaints Integumentary/Breasts: Skin/Breast: Reports system reviewed and no additional complaints, except as docu Neurologic: Reports system reviewed and no additional complaints, except as documented Psychiatric: Psychiatric: Reports no additional psychiatric complaints Endocrine: Endocrine: Reports no additional endocrine complaints [facility] Past Medical History Medical History (Updated 04/03/21 @ 12:02 by Allan Davila MD) Arm pain Blood type A+ CAD (coronary artery disease) Decreased hearing Depression Encounter for pre-operative examination Fatigue DENEEN (generalized anxiety disorder) Hyperlipidemia associated with type 2 diabetes mellitus Hypertension associated with diabetes Left hip pain Left shoulder pain Obesity, Class I, BMI 30-34.9 Osteoarthritis of lumbar spine Right humeral fracture Surgical repair, plate and 8 screws Type 2 diabetes mellitus URI (upper respiratory infection) Urinary urgency Surgical History Surgical History H/O cataract extraction History of back surgery (~1991) History of coronary artery stent placement History of total knee arthroplasty Family History Family History Father , Age 59 Acute myocardial infarction Mother , Age 84 Acute myocardial infarction Other Cystic fibrosis Other Ce
[2021-04-03 10:11] VITALS: BP 134/69; PULSE 94; RESP 20; TEMP 36.7; O2SAT 99
[2021-04-03 10:30] LABS: Basophils Absolute Auto 0.02 K/mm3 (0.00-0.10); Basophils Percent Auto 0.3 % (0.0-1.0); Eosinophils Absolute Auto 0.08 K/mm3 (0.02-0.50); Eosinophils Percent Auto 1.2 % (1.0-6.0); Hematocrit 42.8 % (35.0-42.0); Hemoglobin 13.5 g/dL (11.7-13.8); Immature Granulocyte Absolute 0.01 K/mm3 (0.00-0.00); Immature Granulocyte Percent A 0.2 % (0.0-0.0); Lymphocytes Percent Auto 27.3 % (18.0-42.0); Mean Corpuscular HGB Conc 31.5 g/dL (32.0-36.0); Mean Corpuscular Hemoglobin 28.8 pg (27.0-31.0); Mean Corpuscular Volume 91.3 fL (78.0-102.0); Mean Platelet Volume 9.6 fl (9.2-11.8); Monocytes Absolute Auto 0.48 K/mm3 (0.10-0.90); Monocytes Percent Auto 7.3 % (2.0-11.0); Neutrophils Absolute Auto 4.2 K/mm3 (1.7-7.2); Neutrophils Percent Auto 63.7 % (50.0-70.0); Platelet Count Result 217 K/mm3 (150-420); Red Blood Count 4.69 M/mm3 (4.20-5.40); Red Cell Distribution Width 14.4 % (11.6-14.4); White Blood Count 6.6 K/mm3 (4.8-10.8)
[2021-04-03 10:33] LABS: Add Urine Microscopic? YES; Appearance Urine Clear (Clear); Bilirubin Urine Negative (Negative); Blood Urine 1+ (Negative); Color Urine Light Yellow (Yellow); Glucose Urine UA 3+ (Negative); Ketones Urine Negative (Negative); Leukocyte Esterase Ur Negative (Negative); Nitrate Urine Negative (Negative); Protein Urine Negative (Negative); Specific Grav Ur 1.015 (1.010-1.020); Urobilinogen Urine 0.2 mg/dL (0.2-1.0); pH Urine 5.5 (5.0-8.0)
[2021-04-03 10:43] LABS: Squamous Epithelial Cell Urine Few /hpf (Few); WBC Urine 0-3 /hpf (0-3)
--- NOTE | 2021-04-03 10:43 | ECG_ITS ---
Measurements Intervals Logan Rate: 80 P: 39 SD: 179 QRS: -15 QRSD: 88 T: 34 QT: 393 QTc: 454 Interpretive Statements SINUS RHYTHM NORMAL ECG Electronically Signed On 04-03-2021 12:02:05 CLINICAL DATA ANALYST by Daniel Stroud D.O.
[2021-04-03 10:44] LABS: Bacteria Urine Trace /hpf
[2021-04-03 10:48] LABS: Alanine Aminotransferase 22 U/L (14-59); Albumin Level 3.6 g/dL (3.4-5.0); Alkaline Phosphatase 63 U/L (46-116); Anion Gap 9 mmol/L (8-16); Aspartate Amino Transferase 17 U/L (15-37); Bilirubin,Total 0.7 mg/dL (0.00-1.00); Blood Urea Nitrogen 15 mg/dL (7-18); Carbon Dioxide 27 mmol/L (21-32); Chloride 104 mmol/L (98-108); Estimated CRCL calculation 47 ml/min; Estimated Glomerular Filt Rate 56; Glucose 155 mg/dL (70-99); Lipase 377 U/L (73-393); Osmolality Calculated 293 mOsm/kg (285-295); Potassium 3.9 mmol/L (3.5-5.1); Sodium 140 mmol/L (136-145); Total Protein 7.3 g/dL (6.4-8.2); Troponin I 5.1 ng/L (0.00-60.4)
[2021-04-03 11:00] VITALS: BP 152/74; PULSE 79; RESP 20; O2SAT 96
[2021-04-03 11:59] VITALS: BP 139/78; PULSE 80; RESP 20; O2SAT 99
== END 2021-04-03 12:08 | disposition home or self-care (01) ==
PROVIDERS: Emergency Provider Internal Medicine Critical Care Medicine; PCP Nurse Practitioner Family
DX: R10.9 Unspecified abdominal pain (principal); E11.65 Type 2 diabetes mellitus with hyperglycemia; Z79.4 Long term (current) use of insulin; I25.10 Atherosclerotic heart disease of native coronary artery without angina pectoris; E78.5 Hyperlipidemia, unspecified; I10 Essential (primary) hypertension
CPT/HCPCS: 36415; 80053; 81001; 83690; 84484; 85025; 93005; 99283; 99284

== ENCOUNTER 2021-05-16 22:44 | Emergency (ER) | payer MEDICARE, SELFPAY ==
[2021-05-16 23:16] VITALS: BP 135/97; PULSE 85; RESP 20; TEMP 36.4; O2SAT 97
--- NOTE | 2021-05-16 23:25 | ED.FEMALEGU ---
HPI - Female Genitourinary General Chief complaint: Back Pain/Injury Stated complaint: back pain Source: patient and RN notes reviewed Mode of arrival: ambulatory Limitations: no limitations History of Present Illness HPI Narrative: patient states that she had a bowel movement yesterday and when she strained a bowel she felt like she had pain in her left flank. Today she has had incontinence 5 times and then she fell and had some difficulty getting up. She fell 5 hours ago and wonders if she may have damaged kidney. She is here mostly because she is having incontinence. MD elicited complaint: flank pain and urinary incontinence Onset (ago): hour(s) (5) Location of symptoms: flank (left) Severity: mild Female Urogenital Radiation: Non-Radiating Quality of pain: dull Consistency: intermittent Exacerbating factors: none Relieving factors: none Associated symptoms: denies other symptoms Treatment prior to arrival: none Sexual activity: No Related Data Home Medications Medication Instructions Recorded Confirmed aspirin 81 mg tablet,delayed 81 mg PO DAILY 04/07/19 04/03/21 release blood sugar diagnostic #10 each 04/07/19 04/03/21 cholecalciferol (vitamin D3) 1,250 50,000 unit PO .twice weekly cap 06/04/19 04/03/21 mcg (50,000 unit) capsule semaglutide 1 mg/dose (2 mg/1.5 0.25 mg SUB-Q WEEKLY 06/04/19 04/03/21 mL) subcutaneous pen injector empagliflozin 10 mg tablet 10 mg PO DAILY 11/08/19 04/03/21 insulin syringe-needle U-100 0.5 #10 each 11/08/19 04/03/21 mL 30 gauge x 10/01 lancets 30 gauge #25 each 11/08/19 04/03/21 metformin 500 mg PO BID 04/03/21 04/03/21 metoprolol tartrate 50 mg PO BID 04/03/21 04/03/21 Allergies Allergy/AdvReac Type Severity Reaction Status Date / Time atorvastatin Allergy Severe Joint Pain Verified 04/06/21 07:22 cephalexin Allergy Mild Rash Verified 04/06/21 07:22 Review of Systems Review of Systems: All systems reviewed & are unremarkable except as noted in HPI and below PMFSH Past Medical History Medical History (Updated 05/16/21 @ 23:52 by Guy Aden MD) Arm pain Blood type A+ CAD (coronary artery disease) Decreased hearing Depression Encounter for pre-operative examination Fatigue DENEEN (generalized anxiety disorder) Hyperlipidemia associated with type 2 diabetes mellitus Hypertension associated with diabetes Left hip pain Left shoulder pain Obesity, Class I, BMI 30-34.9 Osteoarthritis of lumbar spine Right humeral fracture Surgical repair, plate and 8 screws Type 2 diabetes mellitus URI (upper respiratory infection) Urinary urgency Surgical History Surgical History H/O cataract extraction History of back surgery (~1991) History of coronary artery stent placement History of total knee arthroplasty Family History Family History Father , Age 59 Acute myocardial infarction Mother , Age 84 Acute myocardial infarction Other Cystic fibrosis Other Cerebrovascular accident Family history of arthritis Hypertension Social History Social History Smoking status: Never smoker Alcohol intake: current Alcohol use details: Social occasions only. 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 Gender identity (if verbalized by the patient): Female Sexual Orientation (if Verbalized by the Patient): Straight or Heterosexual Exam Const: General: healthy appearing and no acute distress Nutritional Appearance: well nourished and obese centrally obese Orientation/consciousness: patient oriented x3 HENMT: Head: normal to inspection Ears: external ears normal Eyes: Conjunctivae: conjunctivae normal Pupils: Equal, round and reactive pupils present EOM: EOMs intact bilaterally Neck: Neck: n
[2021-05-16 23:29] LABS: Add Urine Microscopic? YES; Appearance Urine Clear (Clear); Bilirubin Urine Negative (Negative); Blood Urine 2+ (Negative); Color Urine Light Yellow (Yellow); Glucose Urine UA 3+ (Negative); Ketones Urine Negative (Negative); Leukocyte Esterase Ur 1+ LEU/UL (Negative); Nitrate Urine Negative (Negative); Protein Urine Negative (Negative); Specific Grav Ur 1.015 (1.010-1.020); Urobilinogen Urine 0.2 mg/dL (0.2-1.0); pH Urine 5.5 (5.0-8.0)
[2021-05-16 23:36] LABS: Bacteria Urine 2+ /hpf; RBC Urine 21-50 /hpf (0-2); Squamous Epithelial Cell Urine Rare /hpf (Few)
--- NOTE | 2021-05-16 23:42 | PC.NURSE ---
Urine sample obtained and ERMD in to Pt.
[2021-05-17 00:02] VITALS: BP 135/97; PULSE 85; RESP 20; TEMP 36.5; O2SAT 97
== END 2021-05-17 00:07 | disposition home or self-care (01) ==
PROVIDERS: Emergency Provider Emergency Medicine; PCP Nurse Practitioner Family
DX: N39.0 Urinary tract infection, site not specified (principal); I25.10 Atherosclerotic heart disease of native coronary artery without angina pectoris; E11.9 Type 2 diabetes mellitus without complications
CPT/HCPCS: 81001; 87077; 87086; 87088; 87186; 99283; A9270

== ENCOUNTER 2021-08-23 13:36 | Outpatient (CLI) | payer MEDICARE, SELFPAY ==
--- NOTE | ~2021-08-23 | XR_ITS ---
EXAMINATION: XR wrist RT min 3V DATE: 08/23/2021 13:53 INDICATION: Right wrist pain and swelling TECHNIQUE: Posteroanterior, ulnar deviation, oblique, and lateral views of the right wrist were obtai olivier. COMPARISON: none FINDINGS: Alignment is normal. No fracture. Mild chondrocalcinosis at the wrist including in the region of the triangle fibrocartilage complex. Mild polyarticular osteoarthritis at the first carpometacarpal, thir d metacarpophalangeal and first interphalangeal joints. Diffuse osteopenia. IMPRESSION: 1. Chondrocalcinosis at the right wrist and mild polyarticular osteoarthritis at the right hand as de tailed above. Reviewed, dictated and finalized at location B. IMPRESSION: 1. Chondrocalcinosis at the right wrist and mild polyarticular osteoarthritis a t the right hand as detailed above.
== END 2021-08-23 13:37 | disposition home or self-care (01) ==
PROVIDERS: PCP Family Medicine; Visit Provider Family Medicine
DX: M25.531 Pain in right wrist (principal)
CPT/HCPCS: 73110

== ENCOUNTER 2021-10-10 15:03 | Outpatient (CLI) | payer MEDICARE, SELFPAY ==
[2021-10-13 19:53] LABS: Hepatitis C Signal to Cutoff 0.01 ratio (<1.00); Hepatitis C Virus Antibody Nonreactive (Nonreactive)
== END 2021-10-10 15:04 | disposition home or self-care (01) ==
LOC: CHSLAB 15:06
PROVIDERS: PCP Nurse Practitioner Family; Visit Provider Nurse Practitioner Family
DX: Z11.59 Encounter for screening for other viral diseases (principal)
CPT/HCPCS: 36415; 86803

== ENCOUNTER 2021-10-19 09:48 | Outpatient (CLI) | payer MEDICARE, SELFPAY ==
[2021-10-19 10:33] LABS: SARS-CoV-2 RNA PCR Negative (Negative)
== END 2021-10-19 09:49 | disposition home or self-care (01) ==
LOC: CHSLAB 09:49
PROVIDERS: PCP Nurse Practitioner Family; Visit Provider Nurse Practitioner Family
DX: R09.81 Nasal congestion (principal); Z20.822 Contact with and (suspected) exposure to COVID-19
CPT/HCPCS: C9803; U0003; U0005

== ENCOUNTER 2021-11-06 16:00 | Outpatient (RCR) | payer MEDICARE, SELFPAY ==
--- NOTE | 2021-11-07 07:16 | PTOPEVAL ---
Thank you for referring Nessa Mast to [facility].? The patient is scheduled to be seen for therapy? ____x/week for ___ weeks. Please review, sign, date and return this plan of care MADALYN. I agree with and certify that the following plan of care is medically necessary. Referring Physician Date Admitting Provider: Attending Provider: Brooke Ahumada NP Referring Provider: *PT Outpatient Evaluation Start: 11/06/21 15:48 Freq: Status: Active Protocol: Document 11/06/21 16:00 [facility] (Rec: 11/06/21 17:24 [facility] [id number]) Therapy Assessment Status Assessment Status Assessment Status Evaluation Outpatient Past Medical History Cardiovascular History Hx Chest Pain Yes Hx Hypertension Yes Gastrointestinal History Hx Cholecystectomy Yes Hx Gastroesophageal Reflux Disease Yes Musculoskeletal History Hx Fractures Yes: rt arm Hx Orthopedic Surgery Yes: ta knee Endocrine History Hx Diabetes Yes Reproductive History Hx Post Menopausal Yes Psychosocial History Hx Anxiety Yes Hx Depression Yes Evaluation Information Problem Diagnosis R knee pain; L hip pain Onset 11/01/21 Additional Evaluation Detail LEFS = 36% Functionally Declined Subjective Information Pt reports that she fell out Query Text:As Reported By Patient/ of her bed while she was Family asleep last . She says that her L hip and R knee is now bothering her after landing onto the floor. She says that she has trouble getting up from the floor due to her having both of her knees replaced. Pt reports that she has no steps to get into her home, but instead has a ramp. She states that stairs are difficult for her. Prior Level of Function Comments Additional Prior Level of Function patient has had a history of Comments balance loss, falls, and injuries to the UE's and LE's Pain Assessment Timing of Pain Assessment Timing of Pain Assessment Pre-Treatment Pain Scale Pain Scale Used Numeric (1 - 10) Self Report Pain Assessment Left Hip(s) Reported Pain Level 3 Lowest Pain Intensity 1 Greatest Pain Intensity 3 Right Knee(s) Reported Pain Level 2 Lowest Pain Intensity 1 Greatest Pain Intensity
--- NOTE | 2021-12-03 14:58 | PTOPEVAL ---
Thank you for referring Nessa Mast to [facility].? The patient is scheduled to be seen for therapy? ____x/week for ___ weeks. Please review, sign, date and return this plan of care MADALYN. I agree with and certify that the following plan of care is medically necessary. Referring Physician Date Admitting Provider: Attending Provider: Brooke Ahumada NP Referring Provider: *PT Outpatient Evaluation Start: 11/06/21 15:48 Freq: Status: Active Protocol: Document 12/03/21 14:00 [facility] (Rec: 12/03/21 14:57 [facility] [id number]) Therapy Assessment Status Assessment Status Assessment Status Discharge Outpatient Past Medical History Cardiovascular History Hx Chest Pain Yes Hx Hypertension Yes Gastrointestinal History Hx Cholecystectomy Yes Hx Gastroesophageal Reflux Disease Yes Musculoskeletal History Hx Fractures Yes: rt arm Hx Orthopedic Surgery Yes: ta knee Endocrine History Hx Diabetes Yes Reproductive History Hx Post Menopausal Yes Psychosocial History Hx Anxiety Yes Hx Depression Yes Evaluation Information Problem Diagnosis R knee pain; L hip pain Onset 11/01/21 Additional Evaluation Detail LEF S= 21% functionally declined Subjective Information patient reports she feels Query Text:As Reported By Patient/ good this date. she reports Family she feels her balance and strength are much better. she reports she even feels she is walking better. Pain Assessment Timing of Pain Assessment Timing of Pain Assessment Assessment Self Report Self Report Pain Level 0 Pain Score Pain Score 0: Self Report Lower Extremity Muscle Strength Testing Hip Strength Right Hip Flexion Strength 4+ Good + Hip Abduction Strength 4+ Good + Left Hip Flexion Strength 4+ Good + Hip Abduction Strength 4+ Good + Knee Strength Right Knee Flexion Strength 5 Normal Knee Extension Strength 5 Normal Left Knee Flexion Strength 5 Normal Knee Extension Strength 5 Normal Balance Assessment Tinetti Balance Assessment Sitting Balance Steady, safe Ability to Arise Able, w/o using arms Attempts to Arise Arises on 1st attempt Immediate Standing Balance Steady w/o support Standing Balance Narrow stance w/o support Nudged Response Steady Standing with Eyes Closed Steady Step Pattern Turning 360 Degrees Continuous steps Stability Turning
== END 2021-12-03 16:56 | disposition home or self-care (01) ==
LOC: CHSPT 16:00
PROVIDERS: PCP Nurse Practitioner Family; Visit Provider Nurse Practitioner Family
DX: M25.561 Pain in right knee (principal); M25.552 Pain in left hip
CPT/HCPCS: 97110; 97112; 97161; 97530

== ENCOUNTER 2022-01-28 13:28 | Outpatient (CLI) | payer MEDICARE, SELFPAY ==
[2022-01-28 13:51] LABS: Uric Acid 5.2 mg/dL (2.6-6.0)
== END 2022-01-28 13:29 | disposition home or self-care (01) ==
LOC: CHSLAB 13:29
PROVIDERS: PCP Nurse Practitioner Family; Visit Provider Family Medicine
DX: M10.9 Gout, unspecified (principal)
CPT/HCPCS: 36415; 84550

== ENCOUNTER 2022-04-17 09:48 | Outpatient (CLI) | payer MEDICARE, SELFPAY ==
--- NOTE | ~2022-04-17 | XR_ITS ---
XR wrist RT min 3V DATE: 04/17/2022 10:26 INDICATION: Medial pain for 6 months. No known injury. History of gout. TECHNIQUE: 4 views of right wrist COMPARISON: 08/23/2021 right wrist FINDINGS: Osteopenia. Mild triangular cartilage chondrocalcinosis. No fracture or dislocation, periosteal reaction or bone destruction of the right wrist. There is mild osteophyte is at the first carpometacarpal joint. IMPRESSION: Triangular cartilage calcification Osteopenia Osteoarthritis at first carpometacarpal joint Reviewed, dictated and finalized at location B. ATIONIST
[2022-04-17 10:18] LABS: Creatinine Urine 66.81 mg/dL (40-278); Hemoglobin A1C 6.3 % (<5.7); MALB Creatinine Ratio 21.7 mg/g (0-30); Microalbumin Urine Random 14.5 mg/L
[2022-04-17 10:44] LABS: Alanine Aminotransferase 27 U/L (14-59); Albumin Level 3.6 g/dL (3.4-5.0); Alkaline Phosphatase 61 U/L (46-116); Aspartate Amino Transferase 14 U/L (15-37); Bilirubin,Total 0.6 mg/dL (0.00-1.00); Blood Urea Nitrogen 17 mg/dL (7-18); Calcium 9.2 mg/dL (8.5-10.1); Carbon Dioxide 29 mmol/L (21-32); Cholesterol 153 mg/dL (0-200); Estimated Glomerular Filt Rate 52; Glucose 141 mg/dL (70-99); HDL Direct 57 mg/dL (40-60); LDL Cholesterol Calculated 57 mg/dL (<130); Total Protein 6.8 g/dL (6.4-8.2); Triglycerides 194 mg/dL (0-150)
[2022-04-17 10:49] LABS: Anion Gap 9 mmol/L (8-16); Chloride 107 mmol/L (98-108); Osmolality Calculated 303 mOsm/kg (285-295); Potassium 4.2 mmol/L (3.5-5.1); Sodium 145 mmol/L (136-145)
== END 2022-04-17 09:49 | disposition home or self-care (01) ==
LOC: CHSLAB 09:50
PROVIDERS: PCP Family Medicine; Visit Provider Family Medicine
DX: M25.531 Pain in right wrist (principal); E11.9 Type 2 diabetes mellitus without complications
CPT/HCPCS: 36415; 73110; 80053; 80061; 82043; 83036

== ENCOUNTER 2022-07-29 10:00 | Outpatient (RCR) | payer MEDICARE, SELFPAY ==
--- NOTE | 2022-07-24 16:17 | PTOPEVAL1 ---
Assessment and note entered by JT File, PT Evaluation Information Assessment Status Evaluation Diagnosis L shoulder pain Onset 07/23/22 Subjective Information patient reports she is having pain from the L elbow up to the outside of the L shoulder. she reports difficulty puting on her coat/shirt. she reports she has had RTC issues with the R shoulder . she reports she has had no recent injury to the L shoulder. she reports she did move recently, but reports she did not do any of the lifting or moving. she reports the pain feels like an ache, sharp, and dull pain. she reports no numbness or tingling. she reports nothing into the L hand. she reports she has been having symptoms for 2 months . she reports she has increased pain with getting dressed/putting on clothes. Reported Pain Level Pain Score 5: Self Report Assessment PT Clinical Summary mrs. arrington is a 72 yo woman who presents to skilled PT services for evaluaiton and treatment of L shoulder pain. as of this date, she presents with signs and symptoms consistent with a L RTC injury with OA as well. she would benefit from continued skilled PT to decrease pain, improved strength, improve rom, and improve functional activity performance/quality of life. Plan of Care Interventions Electrical Stimulation,Hot Pack/Cold Pack,Manual Therapy,Neuro Re-education,Patient/Caregiver Educati,Therapeutic Activities,Therapeutic Exercise PT Services Indicated Yes Treatment Frequency and 3x weekly for 9 visits Duration These treatments will address the objective and functional deficits as defined above. The patient will be advanced safely and appropriately in order for the patient to progress towards his/her prior level of function. Additional exercises will be introduced and as well as a comprehensive home exercise program upon discharge, if needed, ?to ensure carryover of functional gains achieved in the clinic. This treatment plan has been reviewed and agreement upon by the patient.
== END 2022-08-13 14:58 | disposition home or self-care (01) ==
LOC: CHSPT 10:00
PROVIDERS: PCP Family Medicine; Visit Provider Family Medicine
DX: M25.512 Pain in left shoulder (principal)
CPT/HCPCS: 97014; 97110; 97140; 97161; G0283

== ENCOUNTER 2022-10-26 15:12 | Emergency (ER) | payer MEDICARE, SELFPAY ==
[2022-10-26 15:12] VITALS: BP 151/65; PULSE 90; RESP 16; TEMP 36.8; O2SAT 98
--- NOTE | 2022-10-26 15:21 | ED.GENADULT ---
HPI - General Adult General Chief complaint: Unspecified Stated complaint: right arm bruise Time Seen by Provider: 10/26/22 15:21 Source: patient Mode of arrival: ambulatory Limitations: no limitations History of Present Illness HPI narrative: Patient knows a small bruise on her right volar forearm but the size of a quarter that is not tender than she has a small bruise on her left finger middle finger without any pain or trauma. She also missed her Ozempic dose couple days ago. Otherwise she is walking talking seeing and hearing okay has no other bleeding or bruising or melena. she had a normal colonoscopy in 2021 She denies any cough shortness of breath sore throat runny nose fever or any pain anywhere or dizziness or lightheadedness. She has a small lump on the back of her neck that is been there for 4 or 5 years this nontender and has not increased in size. Denies any dizziness or lightheadedness or any other lumps or bumps besides the 1 on the back of her neck. Denies any swelling denies any other complaints. She is on aspirin and Plavix no other blood thinners. patient also forgot to take her Ozempic a couple days and was wondering what she should do with this. Related Data Home Medications Medication Instructions Recorded Confirmed aspirin 81 mg tablet,delayed 81 mg PO DAILY 04/07/19 10/26/22 release (Adult Low Dose Aspirin) blood sugar diagnostic #10 ea 04/07/19 10/26/22 cholecalciferol (vitamin D3) 1,250 50,000 unit PO .twice weekly 06/04/19 10/26/22 mcg (50,000 unit) capsule empagliflozin 10 mg tablet 10 mg PO DAILY 11/08/19 10/26/22 (Jardiance) insulin syringe-needle U-100 0.5 #10 ea 11/08/19 10/26/22 mL 30 gauge x 5/16 (Easy Comfort Insulin Syringe) lancets 30 gauge #25 ea 11/08/19 10/26/22 semaglutide 1 mg/dose (2 mg/1.5 1 mg subcut WEEKLY 09/14/21 10/26/22 mL) subcutaneous pen injector (Ozempic) semaglutide 1 mg/dose (4 mg/3 mL) 1 mg subcut WEEKLY 06/10/23 06/10/23 subcutaneous pen injector (Ozempic) Allergies Allergy/AdvReac Type Severity Reaction Status Date / Time atorvastatin Allergy Severe Joint Pain Verified 10/26/22 15:27 cephalexin Allergy Mild Rash Verified 10/26/22 15:27 Review of Systems Review of Systems: All systems reviewed & are unremarkable except as noted in HPI and below PMFSH Past Medical History Medical History Arm pain Bilateral lower extremity edema Blood type A+ CAD (coronary artery disease) Closed dislocation of right shoulder Contusion Decreased hearing Decreased ROM of right shoulder Depression Encounter for pre-operative examination Encounter for screening mammogram for malignant neoplasm of breast Fatigue Foreign body in ear DENEEN (generalized anxiety disorder) Hyperlipidemia associated with type 2 diabetes mellitus Hypertension associated with diabetes Left hip pain Left shoulder pain Left shoulder pain Obesity, Class I, BMI 30-34.9 Osteoarthritis of lumbar spine Post-menopausal Right humeral fracture Surgical repair, plate and 8 screws Right wrist pain Sinus congestion Sinusitis Type 2 diabetes mellitus URI (upper respiratory infection) URI (upper respiratory infection) Urinary urgency UTI (urinary tract infection) Surgical History Surgical History H/O cataract extraction H/O shoulder surgery H/O: hysterectomy History of back surgery (~1991) History of coronary artery stent placement History of total knee arthroplasty Family History Family History Father , Age 59 Acute myocardial infarction Mother , Age 84 Acute myocardial infarction Cerebrovascular accident Other Cystic fibrosis Other Family history of arthritis Hypertension Social History Social History
[2022-10-26 15:46] VITALS: BP 111/72; PULSE 87; RESP 14; TEMP 36.7; O2SAT 97
== END 2022-10-26 15:55 | disposition home or self-care (01) ==
PROVIDERS: Emergency Provider Emergency Medicine; PCP Family Medicine
DX: S50.11XA Contusion of right forearm, initial encounter (principal); L72.3 Sebaceous cyst; I25.10 Atherosclerotic heart disease of native coronary artery without angina pectoris; E78.5 Hyperlipidemia, unspecified; I10 Essential (primary) hypertension; E11.9 Type 2 diabetes mellitus without complications; Z79.82 Long term (current) use of aspirin; Z79.4 Long term (current) use of insulin; X58.XXXA Exposure to other specified factors, initial encounter
CPT/HCPCS: 99281

== ENCOUNTER 2022-10-31 13:58 | Outpatient (CLI) | payer MEDICARE, SELFPAY ==
--- NOTE | ~2022-10-31 | DEXA_ITS ---
Bone Density Report Name: TIA CAMERON Age: 72 Sex: Female Ethnicity: White Date of : 1950 Indication: postmenopausal; screening for osteoporosis; parental hip fracture; height loss; prior fracture; hysterectomy; Referring Provider: IGLESIA ZAMARRIPA Study: Bone densitometry was performed. Exam Date: October 31, 2022 Accession number: [id number] Bone Density: Region BMD T-score Z-score Classification Femoral Neck (Left) 0.681 -1.5 0.5 Osteopenia Total Hip (Left) 0.840 -0.8 0.9 Normal Femoral Neck (Right) 0.574 -2.5 -0.4 Osteoporosis Total Hip (Right) 0.755 -1.5 0.2 Osteopenia Femoral Neck Mean 0.627 -2.0 0.1 Osteopenia Total Hip Mean 0.798 -1.2 0.6 Osteopenia World Health Organization criteria for BMD impression classify patients as: Normal (T-score at or above -1.0), Osteopenia (T-score between -1.0 and -2.5), or Osteoporosis (T-score at or below -2.5). 10-year Fracture Risk: FRAX not reported because: Some T-score for Spine Total or Hip Total or Femoral Neck at or below -2.5 Clinical Information Provided by Patient: Has had a low trauma fracture Parent has had a hip fracture Has used the following medications: Vitamin D Has the following medical conditions: Hysterectomy Patient maximum height was 64 Menopause Age: 28 No regular weight bearing exercise Drinks caffeinated beverages Onset of menses at age 11 Number of children 0 Impression: The patient has established osteoporosis, based on the Right Femoral Neck T-score and the existence of a prior fracture. The patient has risk factors, including: parental hip fracture, previous fracture. Discussion: HIGH RISK OF FRACTURE. BONE DENSITY IS UNDESIRABLY LOW AT ONE OR MORE SKELETAL SITES, CONSISTENT WITH POSTMENOPAUSAL OSTEOPOROSIS. This patient's lowest T-score, in a patient who has previously fractured, meets the World Health Organization's (WHO) criteria for severe osteoporosis. In untreated patients, the risk of osteoporotic fracture increases approximately two-fold for each 1.0 SD decrease in T-score. Low bone density is not the only risk factor for fracture; also consider factors such as patient's age, frailty or poor health, risk of falling, risk of injury, previous osteoporotic fracture, family history of osteoporosis, cigarette smoking, low body weight, etc. Not everyone with low bone mineral density has osteoporosis; osteomalacia and other metabolic bone disorders should also be considered. Patients who have osteoporosis should be evaluated for specific diseases and conditions (secondary causes) that may cause or contribute to bone loss. The [place] [employer]ocrinologists (AACE) and National Osteoporosis Foundation (NOF) recommend pharmacologic intervention for all postmenopausal women whose T-score is in this ra
--- NOTE | ~2022-10-31 | MM_ITS ---
EXAMINATION: MM screening carline BI w hemal HISTORY: Screening mammogram TECHNIQUE: Craniocaudal and mediolateral oblique 3-D tomosynthesis images were obtained and synthetic 2-D images were generated. CAD analysis was submitted and interpreted. COMPARISON: No prior mammogram is available for comparison at this institution. BREAST PARENCHYMAL COMPOSITION: There are scattered areas of fibroglandular density. FINDINGS: There is no evidence of suspicious mass, calcification, or architectural distortion to sugg est malignancy in either breast. There has been no suspicious interval change. IMPRESSION: 1. No mammographic evidence of malignancy. 2. Recommend routine screening mammography in one year. BI-RADS Category 1: Negative Reviewed, dictated and finalized at location A.
== END 2022-10-31 13:59 | disposition home or self-care (01) ==
LOC: CHSIMG 14:01
PROVIDERS: PCP Nurse Practitioner Family; Visit Provider Nurse Practitioner Family
DX: Z12.31 Encounter for screening mammogram for malignant neoplasm of breast (principal); Z78.0 Asymptomatic menopausal state; M81.0 Age-related osteoporosis without current pathological fracture; M85.89 Other specified disorders of bone density and structure, multiple sites
CPT/HCPCS: 77063; 77067; 77080

== ENCOUNTER 2023-03-14 13:47 | Emergency (ER) | payer MEDICARE, SELFPAY ==
--- NOTE | 2023-03-14 13:50 | ED.URI ---
HPI - URI/Sore Throat General Chief Complaint: Unspecified Stated Complaint: unspecified Time Seen by Provider: 03/14/23 13:48 Source: patient and RN notes reviewed Mode of arrival: ambulatory Limitations: no limitations History of Present Illness HPI Narrative: Patient states that she just does not feel good . She is not taking her medications this morning. She complains of nasal congestion and pain in the back of her neck. She denies any nausea vomiting, denies fever chills, denies cough, denies headache. Denies any urinary symptoms. MD elicited complaint: nasal congestion Onset (ago): hour(s) (2) Consistency: constant Severity: moderate Able to tolerate fluids by mouth: Yes Exacerbating factors: nothing Relieving factors: nothing Associated symptoms: nasal congestion Treatments prior to arrival: none Related Data Home Medications Medication Instructions Recorded Confirmed aspirin 81 mg tablet,delayed 81 mg PO DAILY 04/07/19 03/14/23 release (Adult Low Dose Aspirin) blood sugar diagnostic #10 ea 04/07/19 03/14/23 empagliflozin 10 mg tablet 10 mg PO DAILY 11/08/19 03/14/23 (Jardiance) insulin syringe-needle U-100 0.5 #10 ea 11/08/19 03/14/23 mL 30 gauge x 5/16 (Easy Comfort Insulin Syringe) lancets 30 gauge #25 ea 11/08/19 03/14/23 semaglutide 1 mg/dose (4 mg/3 mL) 1 mg subcut WEEKLY 10/26/22 03/14/23 subcutaneous pen injector (Ozempic) Allergies Allergy/AdvReac Type Severity Reaction Status Date / Time atorvastatin Allergy Severe Joint Pain Verified 01/07/23 07:26 cephalexin Allergy Mild Rash Verified 01/07/23 07:26 Review of Systems Review of Systems: All systems reviewed & are unremarkable except as noted in HPI and below PMFSH Past Medical History Medical History Arm pain Bilateral lower extremity edema Blood type A+ CAD (coronary artery disease) Closed dislocation of right shoulder Contusion Decreased hearing Decreased ROM of right shoulder Depression Encounter for pre-operative examination Encounter for screening mammogram for malignant neoplasm of breast Fatigue Foreign body in ear DENEEN (generalized anxiety disorder) Hyperlipidemia associated with type 2 diabetes mellitus Hypertension associated with diabetes Left hip pain Left shoulder pain Left shoulder pain Obesity, Class I, BMI 30-34.9 Osteoarthritis of lumbar spine Post-menopausal Right humeral fracture Surgical repair, plate and 8 screws Right wrist pain Sinus congestion Sinusitis Type 2 diabetes mellitus URI (upper respiratory infection) URI (upper respiratory infection) Urinary urgency UTI (urinary tract infection) Surgical History Surgical History H/O cataract extraction H/O shoulder surgery H/O: hysterectomy History of back surgery (~1991) History of coronary artery stent placement History of total knee arthroplasty Family History Family History Father , Age 59 Acute myocardial infarction Mother , Age 84 Acute myocardial infarction Cerebrovascular accident Other Cystic fibrosis Other Family history of arthritis Hypertension Social History Social History Smoking status: Never smoker Alcohol intake: current Alcohol use details: Social occasions only. Substance use: never Substance use type: does not use Lack of Transportation: No Lack of Food: Never True Current Housing: I Have Housing Concerned About Future Housing: No Difficulty Paying Gas/Electric Bills: No Difficulty Paying for Meds: No Currently Unemployed: No Education: High School Diploma/GED Difficulty w/ Childcare or Family Care: No Living arrangements: alone Occupation/Education: retired Gender identity (if verbalized by the patient): Female Sexual Or
[2023-03-14 13:55] VITALS: BP 169/109; PULSE 113; RESP 16; TEMP 36.6; O2SAT 98
[2023-03-14 14:24] LABS: Basophils Absolute Auto 0.03 K/mm3 (0.00-0.10); Basophils Percent Auto 0.4 % (0.0-1.0); Eosinophils Absolute Auto 0.17 K/mm3 (0.02-0.50); Eosinophils Percent Auto 2.2 % (1.0-6.0); Hemoglobin 13.8 g/dL (11.7-13.8); Immature Granulocyte Absolute 0.04 K/mm3 (0.00-0.00); Immature Granulocyte Percent A 0.5 % (0.0-0.0); Lymphocytes Absolute Auto 1.94 K/mm3 (1.10-4.50); Lymphocytes Percent Auto 25.6 % (18.0-42.0); Mean Corpuscular HGB Conc 31.4 g/dL (32.0-36.0); Mean Corpuscular Hemoglobin 28.5 pg (27.0-31.0); Mean Corpuscular Volume 90.9 fL (78.0-102.0); Mean Platelet Volume 10.1 fl (9.2-11.8); Monocytes Absolute Auto 0.98 K/mm3 (0.10-0.90); Monocytes Percent Auto 12.9 % (2.0-11.0); Neutrophils Absolute Auto 4.4 K/mm3 (1.7-7.2); Neutrophils Percent Auto 58.4 % (50.0-70.0); Platelet Count Result 204 K/mm3 (150-420); Red Blood Count 4.84 M/mm3 (4.20-5.40); Red Cell Distribution Width 14.4 % (11.6-14.4); White Blood Count 7.6 K/mm3 (4.8-10.8)
[2023-03-14 14:30] LABS: Alanine Aminotransferase 34 U/L (14-59); Albumin Level 3.7 g/dL (3.4-5.0); Alkaline Phosphatase 70 U/L (46-116); Anion Gap 15 mmol/L (8-16); Aspartate Amino Transferase 28 U/L (15-37); Bilirubin,Total 0.8 mg/dL (0.00-1.00); Blood Urea Nitrogen 11 mg/dL (7-18); CRP 0.7 mg/dL (0.0-0.9); Calcium 9.6 mg/dL (8.5-10.1); Carbon Dioxide 25 mmol/L (21-32); Chloride 101 mmol/L (98-108); Estimated CRCL calculation 46 ml/min; Estimated Glomerular Filt Rate 58; Glucose 163 mg/dL (70-99); Magnesium 1.8 mg/dL (1.8-2.4); Osmolality Calculated 295 mOsm/kg (285-295); Potassium 3.9 mmol/L (3.5-5.1); Sodium 141 mmol/L (136-145)
[2023-03-14 14:49] LABS: Appearance Urine Clear (Clear); Bilirubin Urine Negative (Negative); Blood Urine 3+ (Negative); Color Urine Light Yellow (Yellow); Glucose Urine UA 3+ (Negative); Ketones Urine Trace (Negative); Leukocyte Esterase Ur 1+ LEU/UL (Negative); Nitrate Urine Positive (Negative); Protein Urine Trace (Negative); Urobilinogen Urine 0.2 mg/dL (0.2-1.0)
[2023-03-14 14:49] LABS: Influenza A QL RT-PCR Negative (Negative); Influenza B QL RT-PCR Negative (Negative); SARS-CoV-2 RNA PCR Positive (Negative)
[2023-03-14 14:56] LABS: Add Urine Microscopic? YES; Bacteria Urine 4+ /hpf; Squamous Epithelial Cell Urine Rare /hpf (Few); WBC Clumps Urine Present /hpf; WBC Urine >75 /hpf (0-3)
[2023-03-14 15:10] VITALS: BP 152/82; PULSE 90; RESP 18; TEMP 36.7; O2SAT 98
--- NOTE | 2023-03-16 12:50 | PC.NURSE ---
FINAL URINE CULTURE REPORT: POSITIVE FOR KLEBSIELLA PNEUMONIAE, PATIENT DISCHARGED ON MACROBID. CULTURE SUSCEPTIBLE TO MEDICATION. NO CHANGE IN MEDICATION OR FURTHER TREATMENT NEEDED.
== END 2023-03-14 15:25 | disposition home or self-care (01) ==
PROVIDERS: Emergency Provider Emergency Medicine; PCP Family Medicine
DX: U07.1 COVID-19 (principal); N39.0 Urinary tract infection, site not specified; I25.10 Atherosclerotic heart disease of native coronary artery without angina pectoris; E78.5 Hyperlipidemia, unspecified; I10 Essential (primary) hypertension; E11.9 Type 2 diabetes mellitus without complications; Z79.4 Long term (current) use of insulin; Z79.82 Long term (current) use of aspirin; Z79.899 Other long term (current) drug therapy
CPT/HCPCS: 36415; 80053; 81001; 83735; 85025; 85055; 86140; 87077; 87086; 87088; 87186; 87636; 99283

== ENCOUNTER 2023-04-09 11:38 | Outpatient (CLI) | payer MEDICARE, SELFPAY | END 2023-04-09 11:39 | disposition home or self-care (01) | LOC: CHSLAB 11:41 | PROVIDERS: PCP Family Medicine; Visit Provider Nurse Practitioner Family | DX: M79.644 Pain in right finger(s) (principal) | CPT/HCPCS: 36415; 84550 ==

== ENCOUNTER 2023-04-17 18:03 | Emergency (ER) | payer MEDICARE, SELFPAY ==
[2023-04-17 18:06] VITALS: BP 159/73; PULSE 103; RESP 17; TEMP 36.6; O2SAT 98
--- NOTE | 2023-04-17 18:07 | ED.RECABL ---
HPI - Recheck/Abnormal Lab/Rx General Chief Complaint: Recheck/Abnormal Lab/Rx Stated Complaint: HTN Time Seen by Provider: 04/17/23 18:07 Source: patient Mode of arrival: ambulatory Limitations: no limitations History of Present Illness HPI narrative: this is a 72-year-old female with history of hypertension, was seen at her pharmacist while she was buying a new blood pressure monitor and had her blood pressure checked and she had a reading of 180s systolic and was told to come to the emergency department. Patient is asymptomatic there is no chest pain no shortness of breath no headache no blurry vision no nausea vomiting. Current blood pressure 159/73 and the patient is asymptomatic, is on medication for blood pressure including losartan and metoprolol. Initial visit (ago): hour(s) Related Data Home Medications Medication Instructions Recorded Confirmed aspirin 81 mg tablet,delayed 81 mg PO DAILY 04/07/19 04/09/23 release (Adult Low Dose Aspirin) blood sugar diagnostic #10 ea 04/07/19 04/09/23 empagliflozin 10 mg tablet 10 mg PO DAILY 11/08/19 04/09/23 (Jardiance) insulin syringe-needle U-100 0.5 #10 ea 11/08/19 04/09/23 mL 30 gauge x 5/16 (Easy Comfort Insulin Syringe) lancets 30 gauge #25 ea 11/08/19 04/09/23 semaglutide 1 mg/dose (4 mg/3 mL) 1 mg subcut WEEKLY 10/26/22 04/09/23 subcutaneous pen injector (Ozempic) Allergies Allergy/AdvReac Type Severity Reaction Status Date / Time atorvastatin Allergy Severe Joint Pain Verified 04/17/23 18:06 cephalexin Allergy Mild Rash Verified 04/17/23 18:06 Review of Systems Review of Systems: All systems reviewed & are unremarkable except as noted in HPI and below PMFSH Past Medical History Medical History Arm pain Bilateral lower extremity edema Blood type A+ CAD (coronary artery disease) Closed dislocation of right shoulder Contusion Decreased hearing Decreased ROM of right shoulder Depression Encounter for pre-operative examination Encounter for screening mammogram for malignant neoplasm of breast Fatigue Foreign body in ear DENEEN (generalized anxiety disorder) Hyperlipidemia associated with type 2 diabetes mellitus Hypertension associated with diabetes Left hip pain Left shoulder pain Left shoulder pain Obesity, Class I, BMI 30-34.9 Osteoarthritis of lumbar spine Post-menopausal Right humeral fracture Surgical repair, plate and 8 screws Right wrist pain Sinus congestion Sinusitis Type 2 diabetes mellitus URI (upper respiratory infection) URI (upper respiratory infection) Urinary urgency UTI (urinary tract infection) Surgical History Surgical History H/O cataract extraction H/O shoulder surgery H/O: hysterectomy History of back surgery (~1991) History of coronary artery stent placement History of total knee arthroplasty Family History Family History Father , Age 59 Acute myocardial infarction Mother , Age 84 Acute myocardial infarction Cerebrovascular accident Other Cystic fibrosis Other Family history of arthritis Hypertension Social History Social History Smoking status: Never smoker Alcohol intake: current Alcohol use details: Social occasions only. Substance use: never Substance use type: does not use Lack of Transportation: No Lack of Food: Never True Current Housing: I Have Housing Concerned About Future Housing: No Difficulty Paying Gas/Electric Bills: No Difficulty Paying for Meds: No Currently Unemployed: No Education: High School Diploma/GED Difficulty w/ Childcare or Family Care: No Living arrangements: alone Occupation/Education: retired Gender identity (if verbalized by the patient): Female Sexual Orientation (if Verbaliz
[2023-04-17 18:30] VITALS: BP 135/75; PULSE 93; RESP 17; TEMP 36.7; O2SAT 97
== END 2023-04-17 18:30 | disposition home or self-care (01) ==
PROVIDERS: Emergency Provider Emergency Medicine; PCP Family Medicine
DX: I10 Essential (primary) hypertension (principal); I25.10 Atherosclerotic heart disease of native coronary artery without angina pectoris; E11.9 Type 2 diabetes mellitus without complications; Z79.4 Long term (current) use of insulin; Z79.82 Long term (current) use of aspirin; Z79.899 Other long term (current) drug therapy
CPT/HCPCS: 99281

== ENCOUNTER 2023-04-26 19:58 | Inpatient (IN) | payer MEDICARE, SELFPAY ==
--- NOTE | ~2023-04-26 | XR_ITS ---
EXAMINATION: XR_[id number] INDICATION: Right knee pain, initial encounter TECHNIQUE: Two views of the right knee are obtained. COMPARISON: None available FINDINGS: Changes of knee arthroplasty are noted. There appears to be an acute periprosthetic fractur e of the proximal tibia approximately 6 cm caudal to the joint space. There is a comminuted, mildly d isplaced fracture of the fibular head. Calcified atherosclerosis is noted. No additional fracture is identified. IMPRESSION: 1. Probable periprosthetic fracture of the proximal tibia. 2. Comminuted fibular head fracture. Reviewed, dictated and finalized at location F. LE MILL OPERATOR
--- NOTE | ~2023-04-26 | XR_ITS ---
EXAMINATION: XR pelvis 1-2V INDICATION: Pain after fall TECHNIQUE: AP view the pelvis is obtained. COMPARISON: 11/30/2018 FINDINGS: Bone alignment is normal. There is no fracture. There is mild osteoarthritis of the hips. C alcified atherosclerosis is noted. There is severe lower lumbar spondylosis. IMPRESSION: 1. No acute osseous abnormality. Reviewed, dictated and finalized at location F. DOMETER INSPECTOR
--- NOTE | ~2023-04-26 | XR_ITS ---
EXAMINATION: [id number] INDICATION: Left knee pain, initial encounter TECHNIQUE: Two views of the left knee are obtained. COMPARISON: None available FINDINGS: There are changes of total knee arthroplasty. There is an oblique, comminuted fracture of t he distal femur just above the arthroplasty. The distal fracture fragment demonstrates 5 mm of latera l displacement and 12 mm of posterior displacement. A small knee joint effusion is present. No additi onal fracture is identified. IMPRESSION: 1. Mildly comminuted and displaced oblique fracture of the distal femur just above the arthroplasty. Reviewed, dictated and finalized at location F. OGICAL SCIENTIST IMPRESSION: 1. Mildly comminuted and displaced oblique fracture of the distal femur just ab ove the arthroplasty.
--- NOTE | ~2023-04-26 | XR_ITS ---
EXAMINATION: XR chest 1V portable INDICATION: Chest pain after fall TECHNIQUE: Portable AP chest at 2243 hours COMPARISON: 02/27/2020 FINDINGS: There is chronic elevation of the right hemidiaphragm. The lungs are free of acute opacitie s. No pleural effusion or pneumothorax. The cardiomediastinal silhouette is normal. Surgical clips in the right upper quadrant are likely from prior cholecystectomy. Healed right-sided rib fractures are noted. IMPRESSION: 1. No acute cardiopulmonary abnormality. Reviewed, dictated and finalized at location F. ICE PARTS DRIVER
--- NOTE | ~2023-04-26 | CT_ITS ---
EXAMINATION: CT knee RT wo con DATE: 04/28/2023 18:15 INDICATION: Proximal right tibial fracture TECHNIQUE: High resolution computed tomography (CT) of the right knee was performed without intraveno us contrast. Additional sagittal and coronal reconstructions were performed. Automated exposure contr ol and iterative reconstruction technique were employed. The dose-length product was 467.22 mGy-cm. COMPARISON: Multiple right knee radiographs dated between 05/06/2023 and 03/24/2009 FINDINGS: Right total knee arthroplasty without patellar resurfacing. There is significant remodeling and loss of bone stock along the posterior aspect of the patella. Additional postoperative change of a prior a nterior tibial tuberosity realignment osteotomy with screw fixation. Old healed fracture at the proxi mal metadiaphyseal region of the tibia. There is an acute nondisplaced fracture with a few subtle fra cture lines involving the posterior, medial and anteromedial cortices of the metaphyseal region exten ding into the proximal diaphyseal region posteriorly. One of the fracture lines extends towards the p osterior aspect of the medial tibial tray and one of the posterior fracture lines extends distally in to the proximal diaphyseal region of the inferior margin of the [id number]. There is however no ev ident fracture line extending across the visualized lateral sided cortex. There is small amount of peter cency the cement from the tip of the arthroplasty component which is chronic and can be se en dating back to at least 06/22/2016. There is a nondisplaced fracture extending across the neck of th e proximal fibula. No other fractures identified. Small right knee joint effusion without layering li pohemarthrosis. There is also a small amount of fluid within a ganglion cyst which extends cephalad b etween the posterior aspect of the medial and lateral femoral condyles. IMPRESSION: 1. Nondisplaced comminuted fractures of the proximal metaphyseal and metadiaphyseal region of the rig ht tibia involving portions of the posterior, medial and anteromedial cortices without a definitive f racture line extending across the lateral cortex. 2. Right total knee arthroplasty without patellar resurfacing. There appears to be lucency between th e cement and the tip of the tibial component which is better appreciated on the prior radiographs chris picious for chronic loosening which can be seen dating back to 06/22/2016 suggestive of loosening which may be related to an earlier healed proximal tibial fracture. 3. Mildly displaced fracture at the head and neck the proximal fibula. 4. Prominent remodeling with loss of bone stock along the articular surface of the patella which is w ithout patellar resurfacing. 5. Small right knee joint effusion. Reviewed, dictated and finalized at location A. NE COMPRESSOR OPERATOR IMPRESSION: 1. Nondisplaced comminuted fractures of the proximal metaphyseal and metadiaphy seal region of the right tibia involving portions of the posterior, medial and anteromedial cortices without a definitive fracture line extending across the l ateral cortex. 2. Right total knee arthroplasty without patellar resurfacing. There appears to be lucency between the cement and the tip of the tibial component which is bet ter appreciated on the prior radiographs suspicious for chronic loosening which can be seen dating back to 06/22/2016 suggestive of loosening which may be relat ed to an earlier healed proximal tibial fracture. 3. Mildly displaced fracture at the head and neck the proximal fibula. 4. Prominent remodeling with loss of bone stock along the articular surface of the patella which is without patellar resurfacing. 5. Small right knee joint effusion.
--- NOTE | ~2023-04-26 | XR_ITS ---
EXAMINATION: XR surgery orthopedic DATE: 04/28/2023 16:28 INDICATION: Left femur fracture TECHNIQUE: 6 fluoroscopic images of the distal left femur were obtained during procedure performed by Dr. Fofana. Radiologist was not present for the imaging or procedure. The amount of fluoroscopy jarad e used during this procedure was 0.9 minutes. COMPARISON: 05/06/2023 FINDINGS: Again seen is a left total knee arthroplasty with patellar resurfacing. Interval placement of a retro grade intramedullary le[place] with pair of proximal and a pair of distal interlocking screws spanning the oblique fracture in the metaphyseal region of the distal femur. Decrease in now approximately 1 corti melissa width posterolateral displacement. No new fractures identified. IMPRESSION: 1. Near-anatomic alignment post open reduction internal fixation of a fracture of the distal metaphys eal region of the left femur. Cc procedure note for further detail. 2. Stable appearance of a left total knee arthroplasty with patellar resurfacing which does not appea r to be directly involved by the fracture. Reviewed, dictated and finalized at location A. IANCE PARTS COUNTER CLERK IMPRESSION: 1. Near-anatomic alignment post open reduction internal fixation of a fracture of the distal metaphyseal region of the left femur. Cc procedure note for furth er detail. 2. Stable appearance of a left total knee arthroplasty with patellar resurfacin g which does not appear to be directly involved by the fracture.
[2023-04-26 20:07] VITALS: BP 184/73; PULSE 91; RESP 18; TEMP 37.3; O2SAT 100
[2023-04-26] MEDS: ACETAMINOPHEN 500 MG TABLET 1000 MG PO (21:45)
[2023-04-26] MEDS: oxyCODONE HCL (*CRX) 5 MG TAB IR PO (21:45)
--- NOTE | 2023-04-26 21:49 | ED.GENADULT ---
HPI - General Adult General Chief complaint: Fall Stated complaint: GLF, bilateral knee pain Time Seen by Provider: 04/26/23 20:38 History of Present Illness HPI narrative: This is a 72-year-old woman who was at a musical concert when she fell down 2 stairs. She landed on her buttocks. She now has bilateral knee pain is been unable to bear weight. Patient has history of knee replacement performed by Dr. Crenshaw. She denies head trauma, loss of consciousness, lower back pain, pelvic pain. Related Data Home Medications Medication Instructions Recorded Confirmed aspirin 81 mg tablet,delayed 81 mg PO DAILY 04/07/19 04/17/23 release (Adult Low Dose Aspirin) blood sugar diagnostic #10 ea 04/07/19 04/17/23 empagliflozin 10 mg tablet 10 mg PO DAILY 11/08/19 04/17/23 (Jardiance) insulin syringe-needle U-100 0.5 #10 ea 11/08/19 04/17/23 mL 30 gauge x 5/16 (Easy Comfort Insulin Syringe) lancets 30 gauge #25 ea 11/08/19 04/17/23 semaglutide 1 mg/dose (4 mg/3 mL) 1 mg subcut WEEKLY 10/26/22 04/17/23 subcutaneous pen injector (Ozempic) Allergies Allergy/AdvReac Type Severity Reaction Status Date / Time atorvastatin Allergy Severe Joint Pain Verified 04/17/23 18:06 cephalexin Allergy Mild Rash Verified 04/17/23 18:06 [facility] Past Medical History Medical History Arm pain Bilateral lower extremity edema Blood type A+ CAD (coronary artery disease) Closed dislocation of right shoulder Contusion Decreased hearing Decreased ROM of right shoulder Depression Encounter for pre-operative examination Encounter for screening mammogram for malignant neoplasm of breast Fatigue Foreign body in ear DENEEN (generalized anxiety disorder) Hyperlipidemia associated with type 2 diabetes mellitus Hypertension associated with diabetes Left hip pain Left shoulder pain Left shoulder pain Obesity, Class I, BMI 30-34.9 Osteoarthritis of lumbar spine Post-menopausal Right humeral fracture Surgical repair, plate and 8 screws Right wrist pain Sinus congestion Sinusitis Type 2 diabetes mellitus URI (upper respiratory infection) URI (upper respiratory infection) Urinary urgency UTI (urinary tract infection) Surgical History Surgical History H/O cataract extraction H/O shoulder surgery H/O: hysterectomy History of back surgery (~1991) History of coronary artery stent placement History of total knee arthroplasty Family History Family History Father , Age 59 Acute myocardial infarction Mother , Age 84 Acute myocardial infarction Cerebrovascular accident Other Cystic fibrosis Other Family history of arthritis Hypertension Social History Social History Smoking status: Never smoker Alcohol intake: current Alcohol use details: Social occasions only. Substance use: never Substance use type: does not use Lack of Transportation: No Lack of Food: Never True Current Housing: I Have Housing Concerned About Future Housing: No Difficulty Paying Gas/Electric Bills: No Difficulty Paying for Meds: No Currently Unemployed: No Education: High School Diploma/GED Difficulty w/ Childcare or Family Care: No Living arrangements: alone Occupation/Education: retired Gender identity (if verbalized by the patient): Female Sexual Orientation (if Verbalized by the Patient): Straight or Heterosexual Exam Narrative: APPEARANCE: No apparent distress. Head: atraumatic. EYES: EOMI, NOSE: Atraumatic NECK: Trachea midline RESPIRATORY: No increased rate of breathing CARDIOVASCULAR: RRR, ABDOMINAL: Non-distended MUSCULOSKELETAl: No obvious deformities the knees bilaterally, tenderness to palpation, pulses are intact in lower extremities. Sensation to light to
--- NOTE | 2023-04-26 22:09 | PC.NURSE ---
2148-PATIENT MOVED TO ER 22 FOR PURPOSE OF STRETCHER FOR RADIOLOGY USE. PATIENT C/O NEED TO VOID. PATIENT PLACED ON BEDPAN. VOIDED 300 CC OF CLEAR, YELLOW URINE. PATIENT TAKEN TO RADIOLOGY VIA STRETCHER.
--- NOTE | 2023-04-26 22:17 | PC.NURSE ---
Report received from MEGAN Gonzalez. Assumed care of patient at this time. Patient in imaging at this time.
[2023-04-26 23:03] LABS: Basophils Absolute Auto 0.1 K/mm3 (0.0-0.1); Basophils Percent Auto 0.3 % (0.2-1.2); Eosinophils Percent Auto 0.1 % (0-4.4); Hematocrit 35.7 % (37.0-47.0); Hemoglobin 11.2 g/dL (12.0-15.0); Immature Granulocyte Absolute 0.07 K/mm3 (0.00-0.031); Immature Granulocyte Percent A 0.4 % (0-0.5); Lymphocytes Absolute Auto 1.47 K/mm3 (0.9-3.2); Lymphocytes Percent Auto 8.3 % (18.3-44.2); Mean Corpuscular HGB Conc 31.4 g/dl (32-36); Mean Corpuscular Hemoglobin 28.9 pg (26-34); Mean Platelet Volume 9.9 fl (7.4-10.4); Monocytes Percent Auto 5.7 % (2.6-8.5); Neutrophils Percent Auto 85.2 % (45.5-73.1); Platelet Count Result 233 k/mm3 (150-375); Red Blood Count 3.88 M/mm3 (4.2-5.4); Red Cell Distribution Width 15.3 % (11.5-14.5); White Blood Count 17.6 K/mm3 (4.5-10.0)
[2023-04-26 23:05] VITALS: O2SAT 100
[2023-04-26 23:14] LABS: Alanine Aminotransferase 25 U/L (6-35); Albumin Level 4.1 g/dL (3.5-5.1); Alkaline Phosphatase 63 U/L (38-126); Anion Gap 12 mmol/L (8-16); Aspartate Amino Transferase 37 U/L (14-36); Bilirubin,Total 0.8 mg/dL (0.2-1.3); Blood Urea Nitrogen 14 mg/dL (7-17); Calcium 9.2 mg/dL (8.4-10.2); Carbon Dioxide 19 mmol/L (22-30); Chloride 106 mmol/L (98-107); Estimated CRCL calculation 55 ml/min; Estimated Glomerular Filt Rate > 60; Glucose 196 mg/dL (65-110); Potassium 3.8 mmol/L (3.4-5.0); Sodium 137 mmol/L (137-145)
[2023-04-26 23:15] VITALS: O2SAT 99
[2023-04-26 23:16] VITALS: BP 129/78; O2SAT 100
[2023-04-26] MEDS: HYDROmorphone HCL INJ (*CRX) 1 MG/ML SYR 0.5 MG IV PUSH (23:19)
[2023-04-26] MEDS: SODIUM CHLORIDE 0.9% IV 1,000 ML 999 ML IV CONT (23:19)
[2023-04-26 23:24] LABS: Troponin I < 0.012 ng/mL (0.000-0.034)
[2023-04-26] MEDS: ONDANSETRON INJ 4 MG/2 ML VIAL IV PUSH (23:31)
[2023-04-26 23:34] VITALS: PULSE 85; RESP 17; O2SAT 100
[2023-04-26 23:40] LABS: Prothrombin Time 13.3 Seconds (11.1-14.7)
[2023-04-26 23:41] LABS: Partial Thromboplastin Time 29.8 SECONDS (22.3-36.8)
[2023-04-26 23:45] VITALS: O2SAT 94
[2023-04-26 23:45] LABS: Appearance Urine Clear (Clear); Bacteria Urine 4+ /hpf; Bilirubin Urine Negative (Negative); Blood Urine Trace (Negative); Color Urine Yellow (Yellow); Glucose Urine UA 3+ mg/dL (Negative); Ketones Urine Trace mg/dL (Negative); Leukocyte Esterase Ur Trace LEU/UL (Negative); Nitrate Urine Negative (Negative); Non Pathogenic Casts 0-2; Protein Urine Negative (Negative); RBC Urine 0-2 /hpf (0-2); Specific Grav Ur 1.024 (1.001-1.035); Squamous Epithelial Cell Urine None seen /hpf (Few); Urobilinogen Urine 0.2 mg/dL (<2.0); pH Urine 5.5 (5.0-9.0)
[2023-04-26 23:48] LABS: Add Urine Microscopic? YES
[2023-04-27] VITALS (18 sets, daily range): BP systolic 105–165; BP diastolic 53–75; PULSE 84–103; RESP 16–18; TEMP 36.4–37.2; O2SAT 95–100
--- NOTE | 2023-04-27 00:11 | PM.IMHP ---
H&P: HPI History of Present Illness Date/Time: 04/27/23 00:11 Chief Complaint: fall Narrative: This is a 72-year-old female with past medical history significant for type diabetes mellitus, osteoporosis, hypertension, coronary artery disease, generalized anxiety disorder, obesity. Patient presents today to the emergency room after she sustained a fall while going down stairs she was at a local concert. Patient denies any loss of consciousness, she was unable to get up on her own or bear weight and was brought to the emergency room has been found to have femur fracture. Patient has been in her usual state of health up until this moment denies any fevers, rigors, chills, nausea, vomiting, dizziness, lightheadedness. Preliminary workup was significant for urinalysis was numerous WBCs. Review of Systems Constitutional: Constitutional: Denies chills, Denies fever(s), Denies frequent falls, Denies night sweats and Denies weakness Eyes: Eyes: Denies change in vision ENT: Denies dysphagia, Denies vertigo, Denies dizziness and Denies odynophagia Cardiovascular: Cardiovascular: Denies chest pain, Denies radiating jaw, neck or arm pain and Denies palpitations Respiratory: Respiratory: Denies cough, Denies excessive phlegm production and Denies dyspnea Gastrointestinal: Gastrointestinal: Denies abdominal pain, Denies dyspepsia, Denies heartburn, Denies diarrhea, Denies nausea and Denies vomiting Genitourinary: Genitourinary: Denies dysuria Musculoskeletal: Musculoskeletal: Reports deformity, Reports arthralgias, Reports limited range of motion and Reports other (fall) Integumentary/Breasts: Skin/Breast: Denies rash Neurologic: Denies focal weakness and Denies Sensory deficit (Neuro) Psychiatric: Psychiatric: Reports no additional psychiatric complaints and Reports as per HPI Endocrine: Endocrine: Denies cold intolerance, Denies fatigue, Denies flushing, Denies heat intolerance, Denies polyphagia, Denies polydipsia and Denies palpitations Hematologic/Lymphatic: Hematologic/Lymphatic: Reports no additional hematologic/lymphatic complaints and Reports as per HPI Allergic/Immunologic: Allergic/Immunologic: Reports no additional allergic/immunologic complaints and Reports as per HPI PMFSH Past Medical History Medical History Arm pain Bilateral lower extremity edema Blood type A+ CAD (coronary artery disease) Closed dislocation of right shoulder Contusion Decreased hearing Decreased ROM of right shoulder Depression Encounter for pre-operative examination Encounter for screening mammogram for malignant neoplasm of breast Fatigue Foreign body in ear DENEEN (generalized anxiety disorder) Hyperlipidemia associated with type 2 diabetes mellitus Hypertension associated with diabetes Left hip pain Left shoulder pain Left shoulder pain Obesity, Class I, BMI 30-34.9 Osteoarthritis of lumbar spine Post-menopausal Right humeral fracture Surgical repair, plate and 8 screws Right wrist pain Sinus congestion Sinusitis Type 2 diabetes mellitus URI (upper respiratory infection) URI (upper respiratory infection) Urinary urgency UTI (urinary tract infection) Surgical History Surgical History H/O cataract extraction H/O shoulder surgery H/O: hysterectomy History of back surgery (~1991) History of coronary artery stent placement History of total knee arthroplasty Family History Family History Father , Age 59 Acute myocardial infarction Mother , Age 84 Acute myocardial infarction Cerebrovascular accident Other Cystic fibrosis Other Family history of arthritis Hypertension Social History Social History Smoking status: Never smoker Alcohol intake: current Alcohol use details: So
--- NOTE | 2023-04-27 00:33 | ECG_ITS ---
Measurements Intervals [place] Rate: 89 P: 8 MA: 202 QRS: -21 QRSD: 86 T: 22 QT: 386 QTc: 470 Interpretive Statements SINUS RHYTHM WITH OCCASIONAL ECTOPIC PREMATURE COMPLEXES COMPARED TO ECG 04/03/2021 10:50:35 NO SIGNIFICANT CHANGES Electronically Signed On 04-27-2023 10:30:06 RN NIGHT by Bob Potts M.D.
--- NOTE | 2023-04-27 01:30 | ADMGEN ---
This patient, Nessa Mast, was admitted to Medical Room 340-01. Patient/family oriented to hospital policies and general routines including ID bracelet, bed and alarms, visiting hours, pain management, procedures, bathroom and other care routines, personal items, smoking policy, room service/diet, and visiting hours. Information on how to activate the Rapid Response Team has been discussed. Patient/Family are encouraged to report perceived risks to care and to ask questions if they do not understand what they are told or what they should do.
[2023-04-27] MEDS: LACTATED RINGERS 1,000 ML 100 ML IV CONT (02:14)
--- NOTE | 2023-04-27 08:10 | PM.CNOR ---
Assessment and Plan Assessment and plan (1) Displaced supracondylar fracture of distal end of left femur without intracondylar extension: Qualifiers: Encounter type: initial encounter Fracture type: closed Qualified Code(s): S72.452A - Displaced supracondylar fracture without intracondylar extension of lower end of left femur, initial encounter for closed fracture Code(s): S72.452A - Displaced supracondylar fracture without intracondylar extension of lower end of left femur, initial encounter for closed fracture Status: Acute Assessment and Plan: New patient evaluation for chief complaint Left distal femur supracondylar periprosthetic fracture. History, physical exam and radiographs reviewed with the patient. Fall while at a concert last night. Skin intact. Neurovascularly intact bilateral lower extremities. Able to move ankle foot and toes, however weakness noted on the left side. Discussed the condition, nature, etiology and course of natural history with the patient. Treatment options including surgical and nonoperative treatment were reviewed. Risks and benefits of each as well as alternatives reviewed. The patient's questions were answered. Conservative treatment ice, Immobilization, pain control. patient on Plavix. Will hold for surgery. SCDs for mechanical DVT prophylaxis. Discussed nonoperative and operative treatment options with the patient. Risks and benefits of each as well as alternatives were reviewed. All of the patient's questions were answered. The risks of surgery reviewed including but not limited to: Neurovascular damage, wound complication, infection, blood clot, pulmonary embolus, stroke, myocardial infarction, and anesthetic risks up to and including . Continued pain and possible dysfunction were explained. Specific risks of the procedure including later recurrence of deformity. No guarantees were offered. If hardware used, discussed risk of failure/ breakage and possible need for removal. If complications occur, the patient understands the need for further treatment, possible further surgery. Patient verbalizes understanding and wishes to proceed. PLAN: Open reduction internal fixation left femur fracture. (2) Periprosthetic fracture around internal prosthetic knee joint: Code(s): M97.8XXA - Periprosthetic fracture around other internal prosthetic joint, initial encounter; Z96.659 - Presence of unspecified artificial knee joint Status: Acute (3) Closed fracture of proximal end of right fibula: Qualifiers: Encounter type: initial encounter Fracture morphology: other fracture Qualified Code(s): S82.831A - Other fracture of upper and lower end of right fibula, initial encounter for closed fracture Code(s): S82.831A - Other fracture of upper and lower end of right fibula, initial encounter for closed fracture Status: Acute Assessment and Plan: Minimally displaced. Mildly tender on exam. Will use knee immobilizer starts to mobilize and ambulate. For now conservative treatment. (4) Acute UTI: Code(s): N39.0 - Urinary tract infection, site not specified Status: Acute Assessment and Plan: started on IV antibiotics. Will allow 24 hours antibiotics prior to proceeding with fracture hardware implantation. History of Present Illness HPI Consult date: 04/27/23 Requesting physician: Gabriele Mitchell MD Chief complaint: Femur Fracture Narrative: 72-year-old woman with history of bilateral knee replacements fell yesterday while at a music concert. Injury to left leg and right knee. Was unable to bear weight. Was brought to the emergency room. Complains of pain bilateral legs. Denies numbness or tingling. Previous ambulator, independent without assistive devices. Review of Systems Constitutional: Constitutional: Denies fever(s) Eyes: Eyes: Denies blurry vision ENT: Reports Normal hearing present Cardiov
[2023-04-27 08:23] LABS: Glucose Point of Care 140 mg/dl (65-105)
[2023-04-27] MEDS: METOPROLOL TARTRATE 25 MG TABLET PO ×2 (08:32→20:21)
[2023-04-27] MEDS: ISOSORBIDE MONONITRATE 15 MG TAB.ER.24H PO (08:33)
[2023-04-27] MEDS: CALCIUM CARBONATE (TUMS) 500 MG (200 MG ELEMENTAL) PO ×3 (08:33→16:32)
[2023-04-27] MEDS: DULoxetine HCL 30 MG CAPSULE.DR 60 MG PO (08:33)
[2023-04-27] MEDS: ISOSORBIDE MONONITRATE 30 MG TAB.ER.24H PO (08:33)
[2023-04-27] MEDS: ROSUVASTATIN 10 MG TABLET PO (08:33)
[2023-04-27] MEDS: METOPROLOL TARTRATE 12.5 MG TABLET PO ×2 (08:33→20:22)
[2023-04-27] MEDS: LOSARTAN POTASSIUM 25 MG TABLET PO ×2 (08:33→20:22)
[2023-04-27 11:58] LABS: Glucose Point of Care 283 mg/dl (65-105)
--- NOTE | 2023-04-27 13:12 | PM.IMPN ---
Progress Note: A&P Assessment and Plan (1) Closed femur fracture: Code(s): S72.90XA - Unspecified fracture of unspecified femur, initial encounter for closed fracture Status: Acute Assessment and Plan: X-ray revealing mildly comminuted and displaced oblique fracture of the distal femur just above the arthroplasty. Orthopedics consulted. Plan for open reduction internal fixation of the left femur tomorrow. Pain management, DVT prophylaxis and PT and OT per Orthopedic recommendation. (2) Periprosthetic fracture around internal prosthetic knee joint: Code(s): M97.8XXA - Periprosthetic fracture around other internal prosthetic joint, initial encounter; Z96.659 - Presence of unspecified artificial knee joint Status: Acute Assessment and Plan: Right knee periprosthetic fracture of the proximal tibia and comminuted fibular head fracture Orthopedics recommending knee immobilizer. Conservative measures. Ice p.r.n. Analgesics P.r.n. for pain (3) Closed fracture of proximal end of right fibula: Qualifiers: Encounter type: initial encounter Fracture morphology: other fracture Qualified Code(s): S82.831A - Other fracture of upper and lower end of right fibula, initial encounter for closed fracture Code(s): S82.831A - Other fracture of upper and lower end of right fibula, initial encounter for closed fracture Status: Acute Assessment and Plan: see problem 2. (4) Acute UTI: Code(s): N39.0 - Urinary tract infection, site not specified Status: Acute Assessment and Plan: UA with trace leukocyte esterase and 11-20 wbc's. Patient started on Rocephin. Urine culture pending. Adjust antibiotic therapy to culture results. (5) Leukocytosis: Code(s): D72.829 - Elevated white blood cell count, unspecified Status: Acute Assessment and Plan: Likely secondary to urinary tract infection Continue to monitor (6) Osteoporosis: Code(s): M81.0 - Age-related osteoporosis without current pathological fracture Status: Chronic Assessment and Plan: Follow-up in outpatient setting (7) GERD (gastroesophageal reflux disease): Qualifiers: Esophagitis presence: without esophagitis Qualified Code(s): K21.9 - Gastro-esophageal reflux disease without esophagitis Code(s): K21.9 - Gastro-esophageal reflux disease without esophagitis Status: Acute Assessment and Plan: PPI (8) Chronic low back pain: Qualifiers: Back pain laterality: unspecified Sciatica presence: unspecified whether sciatica present Qualified Code(s): M54.50 - Low back pain, unspecified; G89.29 - Other chronic pain Code(s): M54.5 - Low back pain; G89.29 - Other chronic pain Status: Acute Assessment and Plan: Tylenol as needed (9) CAD (coronary artery disease): Qualifiers: Associated angina: with stable angina Coronary Disease-Associated Artery/Lesion type: [place] artery [place] vs. transplanted heart: [place] heart Qualified Code(s): I25.118 - Atherosclerotic heart disease of [place] coronary artery with other forms of angina pectoris Code(s): I25.10 - Atherosclerotic heart disease of [place] coronary artery without angina pectoris Status: Acute Assessment and Plan: Holding Plavix Holding aspirin (10) Type 2 diabetes mellitus: Qualifiers: Diabetes mellitus prison insulin use: without director long term care use Diabetes mellitus complication status: without complication Qualified Code(s): E11.9 - Type 2 diabetes mellitus without complications Code(s): E11.9 - Type 2 diabetes mellitus without complications Status: Acute Assessment and Plan: Insulin Lispro sliding scale, Accu-checks qAc and HS and Hold oral hypoglycemics Initiate hypoglycemic precautions Subje
[2023-04-27] MEDS: ACETAMINOPHEN 325 MG TABLET 650 MG PO (13:26)
[2023-04-27 16:56] LABS: Glucose Point of Care 175 mg/dl (65-105)
[2023-04-27] MEDS: INSULIN ASPART (*BKC) 100 UNITS/ML SUB-Q (20:22)
[2023-04-27 21:43] LABS: Glucose Point of Care 304 mg/dl (65-105)
[2023-04-28] VITALS (17 sets, daily range): BP systolic 102–140; BP diastolic 47–79; PULSE 72–108; RESP 14–25; TEMP 36.6–37.4; O2SAT 94–100
[2023-04-28 05:51] LABS: Basophils Percent Auto 0.2 % (0.2-1.2); Eosinophils Percent Auto 0.2 % (0-4.4); Hematocrit 29.2 % (37.0-47.0); Immature Granulocyte Absolute 0.03 K/mm3 (0.00-0.031); Immature Granulocyte Percent A 0.3 % (0-0.5); Lymphocytes Absolute Auto 1.74 K/mm3 (0.9-3.2); Lymphocytes Percent Auto 18.8 % (18.3-44.2); Mean Corpuscular HGB Conc 30.8 g/dl (32-36); Mean Corpuscular Hemoglobin 28.6 pg (26-34); Mean Corpuscular Volume 92.7 fl (80-100); Monocytes Absolute Auto 1.1 K/mm3 (0.1-0.6); Monocytes Percent Auto 11.8 % (2.6-8.5); Neutrophils Absolute Auto 6.3 K/mm3 (1.3-6.7); Neutrophils Percent Auto 68.7 % (45.5-73.1); Platelet Count Result 174 k/mm3 (150-375); Red Blood Count 3.15 M/mm3 (4.2-5.4); Red Cell Distribution Width 15.6 % (11.5-14.5); White Blood Count 9.2 K/mm3 (4.5-10.0)
[2023-04-28 06:11] LABS: Alanine Aminotransferase 22 U/L (6-35); Albumin Level 3.7 g/dL (3.5-5.1); Alkaline Phosphatase 55 U/L (38-126); Anion Gap 6 mmol/L (8-16); Aspartate Amino Transferase 27 U/L (14-36); Bilirubin,Total 1.1 mg/dL (0.2-1.3); Blood Urea Nitrogen 10 mg/dL (7-17); Calcium 8.9 mg/dL (8.4-10.2); Carbon Dioxide 26 mmol/L (22-30); Chloride 105 mmol/L (98-107); Estimated CRCL calculation 48 ml/min; Estimated Glomerular Filt Rate > 60; Glucose 177 mg/dL (65-110); Potassium 3.9 mmol/L (3.4-5.0); Sodium 137 mmol/L (137-145)
--- NOTE | 2023-04-28 13:27 | WPDHPUPDATE1 ---
History and Physical Update Update Date/Time: 04/28/23 13:27 History and Physical has been reviewed, including an updated exam of the patient. There are NO changes in the patient's condition. Risks, benefits, and alternatives have been discussed and questions answered. Patient agrees to proceed with procedure.
--- NOTE | 2023-04-28 14:02 | PC.NURSE ---
Patient off of unit to surgery
--- NOTE | 2023-04-28 14:11 | PM.IMPN ---
Progress Note: A&P Assessment and Plan (1) Closed femur fracture: Code(s): S72.90XA - Unspecified fracture of unspecified femur, initial encounter for closed fracture Status: Acute Assessment and Plan: X-ray revealing mildly comminuted and displaced oblique fracture of the distal femur just above the arthroplasty. Orthopedics consulted. Plan for open reduction internal fixation of the left femur today. Pain management, DVT prophylaxis and PT and OT per Orthopedic recommendation. (2) Periprosthetic fracture around internal prosthetic knee joint: Code(s): M97.8XXA - Periprosthetic fracture around other internal prosthetic joint, initial encounter; Z96.659 - Presence of unspecified artificial knee joint Status: Acute Assessment and Plan: Right knee periprosthetic fracture of the proximal tibia and comminuted fibular head fracture Orthopedics recommending knee immobilizer. Conservative measures. Ice p.r.n. Analgesics P.r.n. for pain (3) Closed fracture of proximal end of right fibula: Qualifiers: Encounter type: initial encounter Fracture morphology: other fracture Qualified Code(s): S82.831A - Other fracture of upper and lower end of right fibula, initial encounter for closed fracture Code(s): S82.831A - Other fracture of upper and lower end of right fibula, initial encounter for closed fracture Status: Acute Assessment and Plan: see problem 2. (4) Acute UTI: Code(s): N39.0 - Urinary tract infection, site not specified Status: Acute Assessment and Plan: UA with trace leukocyte esterase and 11-20 wbc's. Patient started on Rocephin. Urine culture pending. Adjust antibiotic therapy to culture results. (5) Leukocytosis: Code(s): D72.829 - Elevated white blood cell count, unspecified Status: Acute Assessment and Plan: Likely secondary to urinary tract infection Continue to monitor (6) Osteoporosis: Code(s): M81.0 - Age-related osteoporosis without current pathological fracture Status: Chronic Assessment and Plan: Follow-up in outpatient setting (7) GERD (gastroesophageal reflux disease): Qualifiers: Esophagitis presence: without esophagitis Qualified Code(s): K21.9 - Gastro-esophageal reflux disease without esophagitis Code(s): K21.9 - Gastro-esophageal reflux disease without esophagitis Status: Acute Assessment and Plan: PPI (8) Chronic low back pain: Qualifiers: Back pain laterality: unspecified Sciatica presence: unspecified whether sciatica present Qualified Code(s): M54.50 - Low back pain, unspecified; G89.29 - Other chronic pain Code(s): M54.5 - Low back pain; G89.29 - Other chronic pain Status: Acute Assessment and Plan: Tylenol as needed (9) CAD (coronary artery disease): Qualifiers: Associated angina: with stable angina Coronary Disease-Associated Artery/Lesion type: [place] artery [place] vs. transplanted heart: [place] heart Qualified Code(s): I25.118 - Atherosclerotic heart disease of [place] coronary artery with other forms of angina pectoris Code(s): I25.10 - Atherosclerotic heart disease of [place] coronary artery without angina pectoris Status: Acute Assessment and Plan: Holding Plavix Holding aspirin (10) Type 2 diabetes mellitus: Qualifiers: Diabetes mellitus donkey ride operator insulin use: without donkey ride operator use Diabetes mellitus complication status: without complication Qualified Code(s): E11.9 - Type 2 diabetes mellitus without complications Code(s): E11.9 - Type 2 diabetes mellitus without complications Status: Acute Assessment and Plan: Insulin Lispro sliding scale, Accu-checks qAc and HS and Hold oral hypoglycemics Initiate hypoglycemic precautions Subjectiv
--- NOTE | 2023-04-28 14:39 | WPDANESEPPF ---
Anes - Initial Pre Proc Eval Procedure: Operation Date: 04/28/23 15:00 Proposed Procedures p Open Reduction Internal Fixation Left Femur - Ankur Fofana MD Date/Time: 04/28/23 14:39 Surgeon: Villa Banegas MD Pre Op Diagnosis: Femur Fracture Patient Data Age: 72 Gender: F Height: 1.65 m Weight: 71.3 kg Last Vital Signs Temp 37.4 C 04/28/23 14:22 Pulse 94 04/28/23 14:22 Resp 14 04/28/23 14:22 BP 131/61 04/28/23 14:22 Pulse Ox 98 04/28/23 14:22 O2 Del Method Room Air 04/28/23 14:22 Allergies Allergy/AdvReac Type Severity Reaction Status Date / Time atorvastatin Allergy Severe Joint Pain Verified 04/27/23 01:51 cephalexin Allergy Mild Rash Verified 04/27/23 01:51 Home Medications Medication Instructions Recorded Confirmed Type aspirin 81 mg tablet,delayed 81 mg PO DAILY 04/07/19 04/27/23 History release (Adult Low Dose Aspirin) blood sugar diagnostic #10 ea 04/07/19 04/27/23 History empagliflozin 10 mg tablet 10 mg PO DAILY 11/08/19 04/27/23 History (Jardiance) insulin syringe-needle U-100 0.5 #10 ea 11/08/19 04/27/23 History mL 30 gauge x 16 (Easy Comfort Insulin Syringe) lancets 30 gauge #25 ea 11/08/19 04/27/23 History nitroglycerin 0.4 mg sublingual 0.4 mg sublingual Q5M PRN Chest 04/03/20 04/27/23 Rx tablet (Nitrostat) Pain #30 tabs rosuvastatin 10 mg tablet 10 mg PO DAILY #90 tabs 07/22/22 04/27/23 Rx semaglutide 1 mg/dose (4 mg/3 mL) 1 mg subcut WEEKLY 10/26/22 04/27/23 History subcutaneous pen injector (Ozempic) alendronate 70 mg tablet 70 mg PO WEEKLY #12 tabs 11/01/22 04/27/23 Rx calcium carbonate 300 mg (750 mg) 300 mg PO TID #90 tabs 11/04/22 04/27/23 Rx chewable tablet (Tums E-X) betamethasone dipropionate 0.05 % 1 applic topical BID PRN itching 01/07/23 04/27/23 Rx lotion #60 mL clopidogrel 75 mg tablet 75 mg PO DAILY 04/27/23 04/27/23 History duloxetine 30 mg capsule,delayed 60 mg PO DAILY 04/27/23 04/27/23 History release isosorbide mononitrate 30 mg 45 mg PO DAILY 04/27/23 04/27/23 History tablet,extended release 24 hr losartan 25 mg tablet 25 mg PO BID 04/27/23 04/27/23 History metformin 500 mg tablet 500 mg PO BID 04/27/23 04/27/23 History metoprolol tartrate 37.5 mg tablet 37.5 mg PO BID 04/27/23 04/27/23 History Laboratory Tests 04/27/23 04/27/23 04/28/23 16:38 20:01 05:31 WBC 9.2 K/mm3 (4.5-10.0) RBC 3.15 L M/mm3 (4.2-5.4) Hgb 9.0 L g/dL (12.0-15.0) Hct 29.2 L % (37.0-47.0) MCV 92.7 fl (80-100) MCH 28.6 pg (26-34) MCHC 30.8 L g/dl (32-36) RDW 15.6 H % (11.5-14.5) Plt Count 174 k/mm3 (150-375) MPV 10.0 fl (7.4-10.4) Immature Gran % (Auto) 0.3 % (0-0.5) Neut % (Auto) 68.7 % (45.5-73.1) Lymph % (Auto) 18.8 % (18.3-44.2) [place] % (Auto) 11.8 H % (2.6-8.5) Eos % (Auto) 0.2 % (0-4.4) Baso % (Auto) 0.2 % (0.2-1.2) Lymph # (Auto) 1.74 K/mm3 (0.9-3.2) [place] # (Auto) 1.1 H K/mm3 (0.1-0.6) Eos # (Auto) 0.0 K/mm3 (0-0.3) Baso # (Auto) 0.0 K/mm3 (0.0-0.1) Abs Immat Gran (auto) 0.03 K/mm3 (0.00-0.031) Absolute Neuts (auto) 6.3 K/mm3 (1.3-6.7) Absolute Nucleated RBC 0.0 K/mm3 (0.0-0.012) Nucleated RBC % 0.0 % (0.0-0.2) Sodium 137 mmol/L (137-145) Potassium 3.9 mmol/L (3.4-5.0) Chloride 105 mmol/L (98-107) Carbon Dioxide 26 mmol/L (22-30) Anion Gap 6 L mmol/L (8-16) BUN 10 mg/dL (7-17) Creatinine 0.80 mg/dL (0.7-1.0) Estim Creat Clear Calc 48 ml/min Estimated GFR > 60 (59 - ) Glucose 177 H mg/dL (65-110) POC Capillary Glucose 175 H mg/dl 304 H mg/dl (65-105) (65-105) Calcium 8.9 mg/dL (8.4-10.2) [place]
[2023-04-28] MEDS: ACETAMINOPHEN 500 MG TABLET 1000 MG PO (14:45)
[2023-04-28] MEDS: TRANEXAMIC ACID 1,000MG/ISO100 1,000 MG/100 ML BAG 200 MG IVPB (14:45)
[2023-04-28] MEDS: KETOROLAC 15 MG/ML VIAL (*BKC) IV PUSH (14:45)
[2023-04-28] MEDS: VANCOMYCIN 1,000 MG/NS 250 ML BAG 250 MG IVPB (14:45)
[2023-04-28] MEDS: LACTATED RINGERS 1,000 ML 30 ML IV CONT (14:45)
[2023-04-28 14:54] LABS: Glucose Point of Care 157 mg/dl (65-105)
[2023-04-28] MEDS: VANCOMYCIN 1,000 MG/NS 250 ML 1,000 MG/250 ML BAG 250 MG IVPB (15:40)
[2023-04-28] MEDS: BUPIVACAINE/EPINEPHRINE 0.5% 50 ML VIAL 30 ML INFILTRATE (16:14)
--- NOTE | 2023-04-28 16:22 | SUR.OPER ---
SEE DR CRUZ SURGICAL NOTES FOR IMPLANT INFORMATION.
--- NOTE | 2023-04-28 17:08 | P.OP_ITS ---
Procedure Note - Detailed Date of Procedure 04/28/23 Pre-op Diagnosis Femur Fracture Post-op Diagnosis Same Procedure Performed Open reduction internal fixation left distal femur supracondylar fracture. Surgeon Ankur Fofana MD [employer] environmental emergencies assistant Anesthesia General Indications 72-year-old woman history of left total knee arthroplasty fell and sustained a distal femur periprosthetic fracture of the left leg. Presents now for operative treatment. Description of Procedure Patient identified in the preoperative holding. Informed consent given. Operative extremity marked. Patient received intravenous antibiotics. Patient brought to the operating room where underwent general anesthetic by anesthesia team. Positioned supine on operating room table. Time-out performed confirming the patient, site of the surgery and the plan. Left leg prepped and draped usual sterile surgical fashion using ChloraPrep skin solution. Previous total knee arthroplasty incision over the anterior knee was utilized and made with 15 blade knife inferior to the patella extending distally. . T9 was incised in line with skin incision. We made it medial parapatellar arthrotomy and entered the knee joint through the Anterior patellar fat. A large hemarthrosis was evacuated with suction. At the intercondylar notch guide pin was placed into the distal femur across the fracture and into the intramedullary canal. This was verified with image intensification. 13.5 reaming was done distally. Fracture was then reduced and a ball-tipped guide lebron was placed in the intramedullary canal. Reaming of the intramedullary canal was done to 13 mm. The guide lebron was measured and a 24 cm length 11.5 mm nail was assembled on the back table. This was then inserted guide lebron in the guide lebron removed. Distal locking was done locking guide and 6.0 mm screws x3. Proximal locking was done in static holes with the locking guide and 5.0 mm screws x2. Image intensification confirmed alignment of fracture final placement of the nail in locking screws. With thoroughly irrigated with saline. The arthrotomy was repaired with 2-0 Vicryl interrupted suture. Ferritin on repaired with 3-0 Monocryl running stitch and subcutaneous tissue repaired with 3-0 Monocryl interrupted sutures. Skin approximated with jh. For the screw holes the soft tissue was repaired with 3-0 Monocryl interrupted suture and jh. Sterile dressing applied. The patient was then woken from anesthesia, extubated and taken to the recovery room in stable condition. All sponge, needle, instrument counts were correct at the end of the case. Pulses were noted to be palpable dorsalis pedis left foot at the start of the case and in recovery room. Implants Dk retrograde femoral nail 11.5 mm x 24 cm, 3 - 6.0 mm distal locking screws, 2 - 5.0 mm proximal locking screws. Estimated Blood Loss 50 Tourniquet Time 0 Urine Output 1,050 Drains No Packing No Pathology None sent Complications None Condition Stable Disposition PACU [facility] Billing Surgery - Charge Forward: Surgery Billing ([id number])
[2023-04-28 17:27] LABS: Glucose Point of Care 203 mg/dl (65-105)
--- NOTE | 2023-04-28 17:32 | ECG_ITS ---
Measurements Intervals [place] Rate: 88 P: 25 FL: 199 QRS: -9 QRSD: 90 T: 12 QT: 380 QTc: 461 Interpretive Statements SINUS RHYTHM WITH FREQUENT ECTOPIC PREMATURE COMPLEXES ABNORMAL ECG COMPARED TO ECG 04/27/2023 00:44:49 NO SIGNIFICANT CHANGES Electronically Signed On 04-29-2023 16:52:05 TURBO OPERATOR by Kale Weldon M.D.
--- NOTE | 2023-04-28 17:34 | SUR.PHASEI ---
FREDERIC LLANES MODERN AND CONTEMPORARY ART CURATOR NOTIFIED RE: BLOOD SUGAR 203 AND OCCASIONAL VENTRICULAR BIGEMINY. STAT EKG ORDERED PER DR. NELSON. DR. NELSON GAVE NO INTERVENTION ORDERS FOR BLOOD SUGAR.
--- NOTE | 2023-04-28 17:47 | SUR.PHASEI ---
EKG IN PROGRESS.
--- NOTE | 2023-04-28 17:48 | SUR.PHASEI ---
PATIENT DENIES CHEST PAIN.
--- NOTE | 2023-04-28 18:02 | SUR.PHASEI ---
MONITOR PLACED FOR TRANSPORT TO CT AND THEN TO FLOOR. CT READY FOR PATIENT. REPORT GIVEN TO RN.
--- NOTE | 2023-04-28 18:25 | SUR.PHASEI ---
1750 FREDERIC LLANES FIXTURE DESIGNER NOTIFIED RE: EKG RESULTS. [address] WELL; TRANSPORTED TO [address] [place] [id number].
[2023-04-28 18:29] LABS: Glucose Point of Care 218 mg/dl (65-105)
[2023-04-28] MEDS: METOPROLOL TARTRATE 12.5 MG TABLET PO (20:58)
[2023-04-28] MEDS: METOPROLOL TARTRATE 25 MG TABLET PO (20:58)
[2023-04-28] MEDS: LOSARTAN POTASSIUM 25 MG TABLET PO (20:59)
[2023-04-28] MEDS: INSULIN ASPART (*BKC) 100 UNITS/ML SUB-Q (20:59)
[2023-04-28 22:05] LABS: Glucose Point of Care 250 mg/dl (65-105)
[2023-04-29] VITALS (12 sets, daily range): BP systolic 115–150; BP diastolic 51–69; PULSE 67–96; RESP 16–18; TEMP 36.8–37.3; O2SAT 93–98
[2023-04-29] MEDS: VANCOMYCIN 1,000 MG/NS 250 ML 1,000 MG/250 ML BAG 250 MG IVPB ×2 (03:53→15:41)
[2023-04-29 06:09] LABS: Basophils Percent Auto 0.2 % (0.2-1.2); Immature Granulocyte Absolute 0.06 K/mm3 (0.00-0.031); Immature Granulocyte Percent A 0.6 % (0-0.5); Lymphocytes Absolute Auto 1.83 K/mm3 (0.9-3.2); Mean Corpuscular HGB Conc 30.8 g/dl (32-36); Mean Corpuscular Hemoglobin 28.7 pg (26-34); Mean Corpuscular Volume 93.2 fl (80-100); Mean Platelet Volume 10.5 fl (7.4-10.4); Monocytes Absolute Auto 1.1 K/mm3 (0.1-0.6); Neutrophils Absolute Auto 7.8 K/mm3 (1.3-6.7); Neutrophils Percent Auto 72.2 % (45.5-73.1); Platelet Count Result 182 k/mm3 (150-375); Red Blood Count 2.79 M/mm3 (4.2-5.4); Red Cell Distribution Width 15.5 % (11.5-14.5); White Blood Count 10.8 K/mm3 (4.5-10.0)
[2023-04-29 06:23] LABS: Anion Gap 9 mmol/L (8-16); Blood Urea Nitrogen 18 mg/dL (7-17); Calcium 8.6 mg/dL (8.4-10.2); Carbon Dioxide 23 mmol/L (22-30); Chloride 106 mmol/L (98-107); Estimated CRCL calculation 48 ml/min; Estimated Glomerular Filt Rate > 60; Glucose 162 mg/dL (65-110); Sodium 138 mmol/L (137-145)
[2023-04-29 08:41] LABS: Glucose Point of Care 128 mg/dl (65-105)
[2023-04-29] MEDS: ISOSORBIDE MONONITRATE 15 MG TAB.ER.24H PO (08:42)
[2023-04-29] MEDS: CALCIUM CARBONATE (TUMS) 500 MG (200 MG ELEMENTAL) PO ×3 (08:42→16:45)
[2023-04-29] MEDS: CLOPIDOGREL BISULFATE 75 MG TABLET PO (08:42)
[2023-04-29] MEDS: ROSUVASTATIN 10 MG TABLET PO (08:42)
[2023-04-29] MEDS: ISOSORBIDE MONONITRATE 30 MG TAB.ER.24H PO (08:42)
[2023-04-29] MEDS: ASPIRIN 81 MG ENTERIC TABLET PO (08:42)
[2023-04-29] MEDS: SENNA/DOCUSATE SODIUM TABLET 2 TAB PO ×2 (08:42→16:45)
[2023-04-29] MEDS: DULoxetine HCL 30 MG CAPSULE.DR 60 MG PO (08:42)
[2023-04-29] MEDS: METOPROLOL TARTRATE 25 MG TABLET PO ×2 (08:42→21:45)
[2023-04-29] MEDS: METOPROLOL TARTRATE 12.5 MG TABLET PO ×2 (08:42→21:45)
[2023-04-29] MEDS: polyethylene glycoL 3350 17 GM POWD.PACK PO (08:42)
[2023-04-29] MEDS: LOSARTAN POTASSIUM 25 MG TABLET PO ×2 (08:42→21:45)
--- NOTE | 2023-04-29 08:47 | PM.PNORT ---
Progress Note: A&P Assessment and Plan (1) Periprosthetic fracture around internal prosthetic knee joint: Code(s): M97.8XXA - Periprosthetic fracture around other internal prosthetic joint, initial encounter; Z96.659 - Presence of unspecified artificial knee joint Status: Acute (2) Displaced supracondylar fracture of distal end of left femur without intracondylar extension: Qualifiers: Encounter type: initial encounter Fracture type: closed Qualified Code(s): S72.452A - Displaced supracondylar fracture without intracondylar extension of lower end of left femur, initial encounter for closed fracture Code(s): S72.452A - Displaced supracondylar fracture without intracondylar extension of lower end of left femur, initial encounter for closed fracture Status: Acute Assessment and Plan: postop day 1 left femur intramedullary nail. Pain well controlled. Neurovascularly intact. Patient high fall risk. PT/ OT with toe-touch weight-bearing. Pain control. DVT prophylaxis with SCDs and aspirin/ Plavix. Possible swing bed when medically stable. (3) Closed fracture of right proximal tibia: Qualifiers: Encounter type: initial encounter Fracture morphology: other fracture Qualified Code(s): S82.191A - Other fracture of upper end of right tibia, initial encounter for closed fracture Code(s): S82.101A - Unspecified fracture of upper end of right tibia, initial encounter for closed fracture Status: Acute Assessment and Plan: CT scan reviewed with the patient. Nondisplaced proximal tibia fracture and fibula fracture. Type of fracture discussed in detail. Treatment options including operative and non operative treatment reviewed. Risks, benefits and alternatives of each treatment discussed in detail. The patient has declined surgical treatment. Risks of treatment decision discussed in detail. Potential problems with displacement of the fracture, loss of alignment, nonunion, malunion and dysfunction discussed in detail. The patient's questions were answered. They verbalized understanding and agreement. Conservative treatment with immobilization, ice, compression and elevation. Knee immobilizer when up. Follow-up radiographs 4-5 weeks. Subjective Subjective Date/Time Seen: 04/29/23 08:47 Post Op day: 1 ( ) Principal diagnosis: Left femur fracture, right tibia / fibular fracture Interval history: intramedullary nail fixation left femur. CT scan done yesterday shows right tibia fracture. Patient awake and alert. Complains of moderate pain left leg. Minimal pain right leg. Review of Systems Constitutional: Constitutional: Denies fever(s) Eyes: Eyes: Denies blurry vision ENT: Reports Normal hearing present Cardiovascular: Cardiovascular: Denies chest pain and Denies dyspnea Respiratory: Respiratory: Denies dyspnea and Denies wheezing Gastrointestinal: Gastrointestinal: Denies abdominal pain Genitourinary: Genitourinary: Denies urinary urgency Musculoskeletal: Musculoskeletal: Reports as per HPI and Denies numbness Integumentary/Breasts: Skin/Breast: Denies changing lesions and Denies sores Neurologic: Reports Normal hearing present, Denies behavioral changes, Denies confusion, Denies numbness and Denies convulsions Psychiatric: Psychiatric: Denies behavioral changes, Denies confusion and Denies hallucinations Endocrine: Endocrine: Denies heat intolerance Hematologic/Lymphatic: Hematologic/Lymphatic: Denies easy bleeding Allergic/Immunologic: Allergic/Immunologic: Denies wheezing Exam Const: General: comfortable; No acute distress Resp: Effort & Inspection: normal respiratory effort and no audible wheezes Extrem: Right lower extremity: lower leg ( Negative Homans sign), ankle Details: normal ROM ( dorsiflexion and plantar flexion intact) and foot Details: vascular exam Details: dorsalis pedis pulse present and normal capillary refi
[2023-04-29 12:23] LABS: Glucose Point of Care 221 mg/dl (65-105)
[2023-04-29] MEDS: INSULIN ASPART (*BKC) 100 UNITS/ML SUB-Q ×2 (12:28→21:46)
--- NOTE | 2023-04-29 13:38 | PM.IMPN ---
Progress Note: A&P Assessment and Plan (1) Closed femur fracture: Code(s): S72.90XA - Unspecified fracture of unspecified femur, initial encounter for closed fracture Status: Acute Assessment and Plan: X-ray revealing mildly comminuted and displaced oblique fracture of the left distal femur just above the arthroplasty. Orthopedics consulted. Plan for open reduction internal fixation of the left femur today. Pain management, DVT prophylaxis and PT and OT per Orthopedic recommendation. (2) Periprosthetic fracture around internal prosthetic knee joint: Code(s): M97.8XXA - Periprosthetic fracture around other internal prosthetic joint, initial encounter; Z96.659 - Presence of unspecified artificial knee joint Status: Acute Assessment and Plan: Right knee periprosthetic fracture of the proximal tibia and comminuted fibular head fracture Orthopedics recommending knee immobilizer. Conservative measures. Ice p.r.n. Analgesics P.r.n. for pain (3) Closed fracture of proximal end of right fibula: Qualifiers: Encounter type: initial encounter Fracture morphology: other fracture Qualified Code(s): S82.831A - Other fracture of upper and lower end of right fibula, initial encounter for closed fracture Code(s): S82.831A - Other fracture of upper and lower end of right fibula, initial encounter for closed fracture Status: Acute Assessment and Plan: see problem 2. (4) Acute UTI: Code(s): N39.0 - Urinary tract infection, site not specified Status: Acute Assessment and Plan: UA with trace leukocyte esterase and 11-20 wbc's. Urine culture positive for klebsiella pneumonia Rocephin decelerated to cefdinir. (5) Leukocytosis: Code(s): D72.829 - Elevated white blood cell count, unspecified Status: Acute Assessment and Plan: Likely secondary to urinary tract infection Continue to monitor (6) Osteoporosis: Code(s): M81.0 - Age-related osteoporosis without current pathological fracture Status: Chronic Assessment and Plan: Follow-up in outpatient setting (7) GERD (gastroesophageal reflux disease): Qualifiers: Esophagitis presence: without esophagitis Qualified Code(s): K21.9 - Gastro-esophageal reflux disease without esophagitis Code(s): K21.9 - Gastro-esophageal reflux disease without esophagitis Status: Acute Assessment and Plan: PPI (8) Chronic low back pain: Qualifiers: Back pain laterality: unspecified Sciatica presence: unspecified whether sciatica present Qualified Code(s): M54.50 - Low back pain, unspecified; G89.29 - Other chronic pain Code(s): M54.5 - Low back pain; G89.29 - Other chronic pain Status: Acute Assessment and Plan: Tylenol as needed (9) CAD (coronary artery disease): Qualifiers: Associated angina: with stable angina Coronary Disease-Associated Artery/Lesion type: [place] artery [place] vs. transplanted heart: [place] heart Qualified Code(s): I25.118 - Atherosclerotic heart disease of [place] coronary artery with other forms of angina pectoris Code(s): I25.10 - Atherosclerotic heart disease of [place] coronary artery without angina pectoris Status: Acute Assessment and Plan: Holding Plavix Holding aspirin (10) Type 2 diabetes mellitus: Qualifiers: Diabetes mellitus technician terminal and repeater insulin use: without shelter use Diabetes mellitus complication status: without complication Qualified Code(s): E11.9 - Type 2 diabetes mellitus without complications Code(s): E11.9 - Type 2 diabetes mellitus without complications Status: Acute Assessment and Plan: Insulin Lispro sliding scale, Accu-checks qAc and HS and Hold oral hypoglycemics Initiate hypoglycemic precautions Subjective Date/time seen
--- NOTE | 2023-04-29 14:55 | P.PNAN_ITS ---
Anes - Prog Note Post-Op Date/Time: 04/29/23 14:55 Cardiovascular status: normal Respiratory status: normal Airway patency: baseline Mental status: baseline Post-Op hydration status: normal Vital Signs: Last Vital Signs Temp 98.2 F 04/29/23 14:00 Pulse 70 04/29/23 14:00 Resp 18 04/29/23 14:00 BP 135/69 04/29/23 14:00 Pulse Ox 96 04/29/23 14:00 O2 Del Method Room Air 04/29/23 11:29 O2 Flow Rate 8 04/28/23 17:00 Pain Score (VAS): 0/10 I/O: Intake & Output 04/28/23 04/29/23 04/29/23 23:59 07:59 15:59 Intake Total 1150 450 462 Output Total 1100 450 Balance 50 0 462 Laboratory Tests 04/29/23 05:22 04/29/23 05:22 04/28/23 04/28/23 04/28/23 17:24 18:25 20:29 WBC RBC Hgb Hct MCV MCH MCHC RDW Plt Count MPV Immature Gran % (Auto) Neut % (Auto) Lymph % (Auto) [place] % (Auto) Eos % (Auto) Baso % (Auto) Lymph # (Auto) [place] # (Auto) Eos # (Auto) Baso # (Auto) Abs Immat Gran (auto) Absolute Neuts (auto) Absolute Nucleated RBC Nucleated RBC % Sodium Potassium Chloride Carbon Dioxide Anion Gap BUN Creatinine Estim Creat Clear Calc Estimated GFR Glucose POC Capillary Glucose 203 H 218 H 250 H Calcium 04/29/23 04/29/23 04/29/23 05:22 08:30 11:51 WBC 10.8 H RBC 2.79 L Hgb 8.0 L Hct 26.0 L MCV 93.2 MCH 28.7 MCHC 30.8 L RDW 15.5 H Plt Count 182 MPV 10.5 H Immature Gran % (Auto) 0.6 H Neut % (Auto) 72.2 Lymph % (Auto) 17.0 L [place] % (Auto) 10.0 H Eos % (Auto) 0.0 Baso % (Auto) 0.2 Lymph # (Auto) 1.83 [place] # (Auto) 1.1 H Eos # (Auto) 0.0 Baso # (Auto) 0.0 Abs Immat Gran (auto) 0.06 H Absolute Neuts (auto) 7.8 H Absolute Nucleated RBC 0.0 Nucleated RBC % 0.0 Sodium 138 Potassium 4.0 Chloride 106 Carbon Dioxide 23 Anion Gap 9 BUN 18 H Creatinine 0.80 Estim Creat Clear Calc 48 Estimated GFR > 60 Glucose 162 H POC Capillary Glucose 128 H 221 H Calcium 8.6 Microbiology 04/26/23 22:45 Unspecified Urine Culture - Final Klebsiella pneumoniae Post-procedural complaints: none Patient Feedback: Patient satisfied with anesthetic care.
--- NOTE | 2023-04-29 16:25 | PM.PNORT ---
Progress Note: A&P Assessment and Plan (1) Displaced supracondylar fracture of distal end of left femur without intracondylar extension: Qualifiers: Encounter type: initial encounter Fracture type: closed Qualified Code(s): S72.452A - Displaced supracondylar fracture without intracondylar extension of lower end of left femur, initial encounter for closed fracture Code(s): S72.452A - Displaced supracondylar fracture without intracondylar extension of lower end of left femur, initial encounter for closed fracture Status: Acute Assessment and Plan: POD #2: Left femur intramedullary nail. Pain well controlled. Neurovascularly intact. Patient high fall risk. PT/ OT with toe-touch weight-bearing. Pain control. DVT prophylaxis with SCDs and aspirin/ Plavix. Possible swing bed when medically stable. (2) Periprosthetic fracture around internal prosthetic knee joint: Code(s): M97.8XXA - Periprosthetic fracture around other internal prosthetic joint, initial encounter; Z96.659 - Presence of unspecified artificial knee joint Status: Acute (3) Closed fracture of right proximal tibia: Qualifiers: Encounter type: initial encounter Fracture morphology: other fracture Qualified Code(s): S82.191A - Other fracture of upper end of right tibia, initial encounter for closed fracture Code(s): S82.101A - Unspecified fracture of upper end of right tibia, initial encounter for closed fracture Status: Acute Assessment and Plan: CT scan reveals a nondisplaced proximal tibia fracture and fibula fracture. Conservative treatment with immobilization, ice, compression and elevation. Knee immobilizer when up. Follow-up radiographs 4-5 weeks. Follow up appt arranged. Subjective Subjective Date/Time Seen: 04/29/23 16:25 Post Op day: 2 Principal diagnosis: Left femur fracture, right tibia / fibular fracture Interval history: POD #2: Intramedullary nail fixation left femur. CT scan done shows right tibia fracture. Patient awake and alert. Complains of moderate pain left leg. Minimal pain right leg. Exam Const: General: comfortable; No acute distress Resp: Effort & Inspection: normal respiratory effort and no audible wheezes Extrem: Right lower extremity: lower leg ( Negative Homans sign), ankle Details: normal ROM ( dorsiflexion and plantar flexion intact) and foot Details: vascular exam Details: dorsalis pedis pulse present and normal capillary refill, tendon exam Details: active flexion normal and active extension normal and motor-sensory exam Details: light-touch normal Location: in all toes; no edema Left lower extremity: normal to inspection, ankle Details: normal ROM and foot Details: vascular exam Details: dorsalis pedis pulse present and normal capillary refill and motor-sensory exam light-touch normal in all toes; no edema Objective Data Vital Signs Vital Signs: Vital Signs - 24 hr 04/28/23 16:45 04/28/23 17:00 04/28/23 17:15 Temperature 36.9 C Pulse Rate 101 H 100 88 Respiratory Rate 25 H 22 H 18 Blood Pressure 124/49 L 133/57 L 138/47 L Pulse Oximetry 100 100 95 Oxygen Delivery Simple Face Mask Simple Face Mask Room Air Oxygen Flow Rate 8 8 04/28/23 17:30 04/28/23 17:45 04/28/23 18:30 Temperature 36.6 C Pulse Rate 90 92 84 Respiratory Rate 18 18 16 Blood Pressure 122/56 L 102/52 L 120/74 Pulse Oximetry 95 98 97 Oxygen Delivery Room Air Room Air Oxygen Flow Rate 04/28/23 18:45 04/28/23 19:43 04/28/23 20:58 Temperature 36.8 C 37.1 C Pulse Rate 84 108 H 83 Respiratory Rate 16 16 Blood Pressure 138/79 104/61 Pulse Oximetry 98 96 Oxygen Delivery Oxygen Flow Rate 04/28/23 20:58 04/28/23 20:00 04/28/23 23:48 Temperature 36.6 C Pulse Rate 83 72 Respiratory Rate 16 Blood Pressure 125/55 L Pulse Oximetry 94 Oxygen Delivery Room Air Oxygen Flow Rate 04/28/23 20:00 04/29/23 00:00 04/29/23 04:39
[2023-04-29 17:07] LABS: Glucose Point of Care 168 mg/dl (65-105)
[2023-04-29] MEDS: ACETAMINOPHEN 325 MG TABLET 650 MG PO (17:32)
[2023-04-29] MEDS: CEFDINIR 300 MG CAPSULE PO (21:46)
[2023-04-30] VITALS (9 sets, daily range): BP systolic 99–153; BP diastolic 45–69; PULSE 66–101; RESP 14–20; TEMP 36.6–37.1; O2SAT 97–98
[2023-04-30 05:47] LABS: Glucose Point of Care 243 mg/dl (65-105)
[2023-04-30 06:37] LABS: Hematocrit 25.2 % (37.0-47.0); Hemoglobin 7.7 g/dL (12.0-15.0); Mean Corpuscular HGB Conc 30.6 g/dl (32-36); Mean Corpuscular Hemoglobin 28.4 pg (26-34); Mean Platelet Volume 9.9 fl (7.4-10.4); Platelet Count Result 177 k/mm3 (150-375); Red Blood Count 2.71 M/mm3 (4.2-5.4); Red Cell Distribution Width 15.5 % (11.5-14.5); White Blood Count 9.7 K/mm3 (4.5-10.0)
[2023-04-30 06:49] LABS: Alanine Aminotransferase 24 U/L (6-35); Albumin Level 3.3 g/dL (3.5-5.1); Alkaline Phosphatase 53 U/L (38-126); Anion Gap 7 mmol/L (8-16); Aspartate Amino Transferase 39 U/L (14-36); Bilirubin,Total 1.3 mg/dL (0.2-1.3); Blood Urea Nitrogen 15 mg/dL (7-17); Calcium 8.6 mg/dL (8.4-10.2); Carbon Dioxide 25 mmol/L (22-30); Chloride 105 mmol/L (98-107); Estimated CRCL calculation 55 ml/min; Estimated Glomerular Filt Rate > 60; Glucose 172 mg/dL (65-110); Potassium 3.8 mmol/L (3.4-5.0); Sodium 137 mmol/L (137-145)
--- NOTE | 2023-04-30 08:05 | PM.PNORT ---
Progress Note: A&P Assessment and Plan (1) Displaced supracondylar fracture of distal end of left femur without intracondylar extension: Qualifiers: Encounter type: initial encounter Fracture type: closed Qualified Code(s): S72.452A - Displaced supracondylar fracture without intracondylar extension of lower end of left femur, initial encounter for closed fracture Code(s): S72.452A - Displaced supracondylar fracture without intracondylar extension of lower end of left femur, initial encounter for closed fracture Status: Acute Assessment and Plan: POD #2: Left femur intramedullary nail. Pain well controlled. Neurovascularly intact. Patient high fall risk. PT/ OT with toe-touch weight-bearing. Pain control. DVT prophylaxis with SCDs and aspirin/ Plavix. Possible swing bed when medically stable- will work for possible transfer today. (2) Periprosthetic fracture around internal prosthetic knee joint: Code(s): M97.8XXA - Periprosthetic fracture around other internal prosthetic joint, initial encounter; Z96.659 - Presence of unspecified artificial knee joint Status: Acute (3) Closed fracture of right proximal tibia: Qualifiers: Encounter type: initial encounter Fracture morphology: other fracture Qualified Code(s): S82.191A - Other fracture of upper end of right tibia, initial encounter for closed fracture Code(s): S82.101A - Unspecified fracture of upper end of right tibia, initial encounter for closed fracture Status: Acute Assessment and Plan: CT scan reveals a nondisplaced proximal tibia fracture and fibula fracture. Conservative treatment with immobilization, ice, compression and elevation. Knee immobilizer when up. Follow-up radiographs 4-5 weeks. Follow up appt arranged. Subjective Subjective Date/Time Seen: 04/30/23 08:05 Post Op day: 2 ( ) Principal diagnosis: Left femur fracture, right tibia / fibular fracture Interval history: intramedullary nail fixation left femur. CT scan done Friday shows right tibia fracture. Patient awake and alert. Complains of moderate pain left leg. Minimal pain right leg. Exam Const: General: comfortable; No acute distress Resp: Effort & Inspection: normal respiratory effort and no audible wheezes Extrem: Right lower extremity: lower leg ( Negative Homans sign), ankle Details: normal ROM ( dorsiflexion and plantar flexion intact) and foot Details: vascular exam Details: dorsalis pedis pulse present and normal capillary refill, tendon exam Details: active flexion normal and active extension normal and motor-sensory exam Details: light-touch normal Location: in all toes; no edema Left lower extremity: normal to inspection, ankle Details: normal ROM and foot Details: vascular exam Details: dorsalis pedis pulse present and normal capillary refill and motor-sensory exam light-touch normal in all toes; no edema Other: Left leg dressing and Henrik wrap in place, clean and dry. Objective Data Vital Signs Vital Signs: Vital Signs - 24 hr 04/29/23 08:42 04/29/23 08:42 04/29/23 08:42 Temperature Pulse Rate 67 67 Respiratory Rate Blood Pressure Pulse Oximetry Oxygen Delivery Room Air 04/29/23 12:00 04/29/23 11:29 04/29/23 12:00 Temperature 98.5 F Pulse Rate 92 69 Respiratory Rate 16 Blood Pressure 148/62 H Pulse Oximetry 98 Oxygen Delivery Room Air 04/29/23 14:00 04/29/23 16:00 04/29/23 20:54 Temperature 98.2 F 99.1 F Pulse Rate 70 87 90 Respiratory Rate 18 16 Blood Pressure 135/69 120/51 L Pulse Oximetry 96 97 Oxygen Delivery 04/29/23 21:45 04/29/23 21:45 04/29/23 20:00 Temperature Pulse Rate 70 70 Respiratory Rate Blood Pressure Pulse Oximetry Oxygen Delivery Room Air 04/29/23 20:00 04/30/23 00:00 04/30/23 04:00 Temperature Pulse Rate 96 80 91 Respiratory Rate Blood Pressure Pulse Oximetry Oxygen Delivery
[2023-04-30 08:22] LABS: Glucose Point of Care 172 mg/dl (65-105)
[2023-04-30] MEDS: CALCIUM CARBONATE (TUMS) 500 MG (200 MG ELEMENTAL) PO ×3 (08:22→17:11)
[2023-04-30] MEDS: ISOSORBIDE MONONITRATE 15 MG TAB.ER.24H PO (08:22)
[2023-04-30] MEDS: ISOSORBIDE MONONITRATE 30 MG TAB.ER.24H PO (08:22)
[2023-04-30] MEDS: SENNA/DOCUSATE SODIUM TABLET 2 TAB PO ×2 (08:22→17:11)
[2023-04-30] MEDS: DULoxetine HCL 30 MG CAPSULE.DR 60 MG PO (08:22)
[2023-04-30] MEDS: METOPROLOL TARTRATE 25 MG TABLET PO ×2 (08:22→21:05)
[2023-04-30] MEDS: CEFDINIR 300 MG CAPSULE PO ×2 (08:23→21:06)
[2023-04-30] MEDS: METOPROLOL TARTRATE 12.5 MG TABLET PO ×2 (08:23→21:05)
[2023-04-30] MEDS: CLOPIDOGREL BISULFATE 75 MG TABLET PO (08:23)
[2023-04-30] MEDS: ASPIRIN 81 MG ENTERIC TABLET PO (08:23)
[2023-04-30] MEDS: ROSUVASTATIN 10 MG TABLET PO (08:23)
[2023-04-30] MEDS: polyethylene glycoL 3350 17 GM POWD.PACK PO (08:23)
[2023-04-30] MEDS: LOSARTAN POTASSIUM 25 MG TABLET PO ×2 (08:23→21:05)
--- NOTE | 2023-04-30 11:00 | PM.IMPN ---
Progress Note: A&P Assessment and Plan (1) Closed femur fracture: Code(s): S72.90XA - Unspecified fracture of unspecified femur, initial encounter for closed fracture Status: Acute Assessment and Plan: X-ray revealing mildly comminuted and displaced oblique fracture of the left distal femur just above the arthroplasty. Orthopedics consulted. Plan for open reduction internal fixation of the left femur today. Pain management, DVT prophylaxis and PT and OT per Orthopedic recommendation. 04/30: awaiting insurance authorization for SNF/swing bed for rehabilitation (2) Periprosthetic fracture around internal prosthetic knee joint: Code(s): M97.8XXA - Periprosthetic fracture around other internal prosthetic joint, initial encounter; Z96.659 - Presence of unspecified artificial knee joint Status: Acute Assessment and Plan: Right knee periprosthetic fracture of the proximal tibia and comminuted fibular head fracture Orthopedics recommending knee immobilizer. Conservative measures. Ice p.r.n. Analgesics P.r.n. for pain (3) Closed fracture of proximal end of right fibula: Qualifiers: Encounter type: initial encounter Fracture morphology: other fracture Qualified Code(s): S82.831A - Other fracture of upper and lower end of right fibula, initial encounter for closed fracture Code(s): S82.831A - Other fracture of upper and lower end of right fibula, initial encounter for closed fracture Status: Acute Assessment and Plan: see problem 2. (4) Acute UTI: Code(s): N39.0 - Urinary tract infection, site not specified Status: Acute Assessment and Plan: UA with trace leukocyte esterase and 11-20 wbc's. Urine culture positive for klebsiella pneumonia Rocephin decelerated to cefdinir. 04/30: Cefdinir to continue until 05/03 0900 dose (5) Leukocytosis: Code(s): D72.829 - Elevated white blood cell count, unspecified Status: Acute Assessment and Plan: Likely secondary to urinary tract infection Continue to monitor (6) Osteoporosis: Code(s): M81.0 - Age-related osteoporosis without current pathological fracture Status: Chronic Assessment and Plan: Follow-up in outpatient setting (7) GERD (gastroesophageal reflux disease): Qualifiers: Esophagitis presence: without esophagitis Qualified Code(s): K21.9 - Gastro-esophageal reflux disease without esophagitis Code(s): K21.9 - Gastro-esophageal reflux disease without esophagitis Status: Acute Assessment and Plan: PPI (8) Chronic low back pain: Qualifiers: Back pain laterality: unspecified Sciatica presence: unspecified whether sciatica present Qualified Code(s): M54.50 - Low back pain, unspecified; G89.29 - Other chronic pain Code(s): M54.5 - Low back pain; G89.29 - Other chronic pain Status: Acute Assessment and Plan: Tylenol as needed (9) CAD (coronary artery disease): Qualifiers: Associated angina: with stable angina Coronary Disease-Associated Artery/Lesion type: [place] artery [place] vs. transplanted heart: [place] heart Qualified Code(s): I25.118 - Atherosclerotic heart disease of [place] coronary artery with other forms of angina pectoris Code(s): I25.10 - Atherosclerotic heart disease of [place] coronary artery without angina pectoris Status: Acute Assessment and Plan: Asa/Plavix restarted post op by Orthopedics (10) Type 2 diabetes mellitus: Qualifiers: Diabetes mellitus snf insulin use: without technician terminal and repeater use Diabetes mellitus complication status: without complication Qualified Code(s): E11.9 - Type 2 diabetes mellitus without complications Code(s): E11.9 - Type 2 diabetes mellitus without complications Status: Acute Assessment and Plan: Insulin Lispr
[2023-04-30 12:01] LABS: Glucose Point of Care 219 mg/dl (65-105)
[2023-04-30] MEDS: INSULIN ASPART (*BKC) 100 UNITS/ML SUB-Q ×2 (12:22→17:23)
[2023-04-30 17:13] LABS: Glucose Point of Care 214 mg/dl (65-105)
[2023-05-01 06:00] VITALS: BP 141/57; PULSE 88; RESP 20; TEMP 36.9; O2SAT 98
[2023-05-01 08:12] VITALS: PULSE 92
[2023-05-01] MEDS: DULoxetine HCL 30 MG CAPSULE.DR 60 MG PO (08:12)
[2023-05-01] MEDS: METOPROLOL TARTRATE 25 MG TABLET PO (08:12)
[2023-05-01] MEDS: ROSUVASTATIN 10 MG TABLET PO (08:12)
[2023-05-01] MEDS: ISOSORBIDE MONONITRATE 15 MG TAB.ER.24H PO (08:12)
[2023-05-01 08:15] VITALS: PULSE 92
[2023-05-01] MEDS: ISOSORBIDE MONONITRATE 30 MG TAB.ER.24H PO (08:15)
[2023-05-01] MEDS: CEFDINIR 300 MG CAPSULE PO (08:15)
[2023-05-01] MEDS: ASPIRIN 81 MG ENTERIC TABLET PO (08:15)
[2023-05-01] MEDS: LOSARTAN POTASSIUM 25 MG TABLET PO (08:15)
[2023-05-01] MEDS: CLOPIDOGREL BISULFATE 75 MG TABLET PO (08:15)
[2023-05-01] MEDS: SENNA/DOCUSATE SODIUM TABLET 2 TAB PO (08:15)
[2023-05-01] MEDS: CALCIUM CARBONATE (TUMS) 500 MG (200 MG ELEMENTAL) PO ×2 (08:15→12:14)
[2023-05-01] MEDS: METOPROLOL TARTRATE 12.5 MG TABLET PO (08:15)
[2023-05-01] MEDS: polyethylene glycoL 3350 17 GM POWD.PACK PO (08:16)
[2023-05-01 08:31] LABS: Glucose Point of Care 169 mg/dl (65-105)
[2023-05-01 08:55] LABS: Glucose Point of Care 142 mg/dl (65-105)
--- NOTE | 2023-05-01 09:05 | PCPTNOTE ---
Attempted to see patient for PT, however patient became nauseous and had emesis. Patient unable to be seen at this time. RN aware.
[2023-05-01] MEDS: ONDANSETRON INJ 4 MG/2 ML VIAL IV PUSH (09:16)
--- NOTE | 2023-05-01 11:36 | PM.PNORT ---
Progress Note: A&P Assessment and Plan (1) Displaced supracondylar fracture of distal end of left femur without intracondylar extension: Qualifiers: Encounter type: initial encounter Fracture type: closed Qualified Code(s): S72.452A - Displaced supracondylar fracture without intracondylar extension of lower end of left femur, initial encounter for closed fracture Code(s): S72.452A - Displaced supracondylar fracture without intracondylar extension of lower end of left femur, initial encounter for closed fracture Status: Acute Assessment and Plan: POD #3: Left femur intramedullary nail. Pain well controlled. Neurovascularly intact. Patient high fall risk. PT/ OT with toe-touch weight-bearing. Pain control. DVT prophylaxis with SCDs and aspirin/ Plavix. Change dressing daily. Dispo: [facility], awaiting insurance authorization. (2) Periprosthetic fracture around internal prosthetic knee joint: Code(s): M97.8XXA - Periprosthetic fracture around other internal prosthetic joint, initial encounter; Z96.659 - Presence of unspecified artificial knee joint Status: Acute (3) Closed fracture of right proximal tibia: Qualifiers: Encounter type: initial encounter Fracture morphology: other fracture Qualified Code(s): S82.191A - Other fracture of upper end of right tibia, initial encounter for closed fracture Code(s): S82.101A - Unspecified fracture of upper end of right tibia, initial encounter for closed fracture Status: Acute Assessment and Plan: CT scan reveals a nondisplaced proximal tibia fracture and fibula fracture. Conservative treatment with immobilization, ice, compression and elevation. Knee immobilizer when up. Follow-up radiographs 4-5 weeks. Follow up appt arranged. Subjective Subjective Date/Time Seen: 05/01/23 11:36 Post Op day: 3 Principal diagnosis: Left femur fracture, right tibia / fibular fracture Interval history: POD #3: Intramedullary nail fixation left femur. CT scan done shows right tibia fracture. Patient awake and alert. Complains of moderate pain left leg. Minimal pain right leg. Review of Systems Review of Systems: All systems reviewed & are unremarkable except as noted in HPI and below Exam Const: General: comfortable; No acute distress Resp: Effort & Inspection: normal respiratory effort and no audible wheezes Extrem: Right lower extremity: lower leg ( Negative Homans sign), ankle Details: normal ROM ( dorsiflexion and plantar flexion intact) and foot Details: vascular exam Details: dorsalis pedis pulse present and normal capillary refill, tendon exam Details: active flexion normal and active extension normal and motor-sensory exam Details: light-touch normal Location: in all toes; no edema Left lower extremity: normal to inspection, ankle Details: normal ROM and foot Details: vascular exam Details: dorsalis pedis pulse present and normal capillary refill and motor-sensory exam light-touch normal in all toes; no edema Other: Left leg dressing and Henrik wrap in place, clean and dry. Change dressing daily. Objective Data Vital Signs Vital Signs: Vital Signs - 24 hr 04/30/23 14:00 04/30/23 21:05 04/30/23 21:05 Temperature 37.1 C Pulse Rate 91 66 66 Respiratory Rate 14 Blood Pressure 99/45 L Pulse Oximetry 98 Oxygen Delivery 04/30/23 20:00 04/30/23 22:10 05/01/23 06:00 Temperature 36.9 C 36.9 C Pulse Rate 66 93 88 Respiratory Rate 14 20 20 Blood Pressure 153/69 H 141/57 H Pulse Oximetry 98 98 98 Oxygen Delivery Room Air 05/01/23 08:12 05/01/23 08:15 05/01/23 08:22 Temperature Pulse Rate 92 92 Respiratory Rate Blood Pressure Pulse Oximetry Oxygen Delivery Room Air Intake/Output Intake/Output: Intake & Output 04/28/23 04/29/23 04/30/23 05/01/23 23:59 23:59 23:59 23:59 Intake Total 1600 1152 820 522 Output Total 7982 3940 1800 700 Bobbyanc
[2023-05-01 12:24] LABS: Glucose Point of Care 180 mg/dl (65-105)
--- NOTE | 2023-05-01 12:37 | PM.IMPN ---
Progress Note: A&P Assessment and Plan (1) Closed femur fracture: Code(s): S72.90XA - Unspecified fracture of unspecified femur, initial encounter for closed fracture Status: Acute Assessment and Plan: X-ray revealing mildly comminuted and displaced oblique fracture of the left distal femur just above the arthroplasty. Orthopedics consulted. Plan for open reduction internal fixation of the left femur today. Pain management, DVT prophylaxis and PT and OT per Orthopedic recommendation. 05/01: awaiting insurance authorization for SNF/swing bed for rehabilitation (2) Periprosthetic fracture around internal prosthetic knee joint: Code(s): M97.8XXA - Periprosthetic fracture around other internal prosthetic joint, initial encounter; Z96.659 - Presence of unspecified artificial knee joint Status: Acute Assessment and Plan: Right knee periprosthetic fracture of the proximal tibia and comminuted fibular head fracture Orthopedics recommending knee immobilizer. Conservative measures. Ice p.r.n. Analgesics P.r.n. for pain (3) Closed fracture of proximal end of right fibula: Qualifiers: Encounter type: initial encounter Fracture morphology: other fracture Qualified Code(s): S82.831A - Other fracture of upper and lower end of right fibula, initial encounter for closed fracture Code(s): S82.831A - Other fracture of upper and lower end of right fibula, initial encounter for closed fracture Status: Acute Assessment and Plan: see problem 2. (4) Acute UTI: Code(s): N39.0 - Urinary tract infection, site not specified Status: Acute Assessment and Plan: UA with trace leukocyte esterase and 11-20 wbc's. Urine culture positive for klebsiella pneumonia Rocephin decelerated to cefdinir. 05/01: Cefdinir to continue until 05/03 0900 dose (5) Leukocytosis: Code(s): D72.829 - Elevated white blood cell count, unspecified Status: Acute Assessment and Plan: Likely secondary to urinary tract infection Continue to monitor (6) Osteoporosis: Code(s): M81.0 - Age-related osteoporosis without current pathological fracture Status: Chronic Assessment and Plan: Follow-up in outpatient setting (7) GERD (gastroesophageal reflux disease): Qualifiers: Esophagitis presence: without esophagitis Qualified Code(s): K21.9 - Gastro-esophageal reflux disease without esophagitis Code(s): K21.9 - Gastro-esophageal reflux disease without esophagitis Status: Acute Assessment and Plan: PPI (8) Chronic low back pain: Qualifiers: Back pain laterality: unspecified Sciatica presence: unspecified whether sciatica present Qualified Code(s): M54.50 - Low back pain, unspecified; G89.29 - Other chronic pain Code(s): M54.5 - Low back pain; G89.29 - Other chronic pain Status: Acute Assessment and Plan: Tylenol as needed (9) CAD (coronary artery disease): Qualifiers: Associated angina: with stable angina Coronary Disease-Associated Artery/Lesion type: [place] artery [place] vs. transplanted heart: [place] heart Qualified Code(s): I25.118 - Atherosclerotic heart disease of [place] coronary artery with other forms of angina pectoris Code(s): I25.10 - Atherosclerotic heart disease of [place] coronary artery without angina pectoris Status: Acute Assessment and Plan: Asa/Plavix restarted post op by Orthopedics (10) Type 2 diabetes mellitus: Qualifiers: Diabetes mellitus penitent[facility] insulin use: without oil heaterman use Diabetes mellitus complication status: without complication Qualified Code(s): E11.9 - Type 2 diabetes mellitus without complications Code(s): E11.9 - Type 2 diabetes mellitus without complications Status: Acute Assessment and Plan: Insulin Lispr
[2023-05-01 14:00] VITALS: BP 139/54; PULSE 96; RESP 16; TEMP 37; O2SAT 98
--- NOTE | 2023-05-01 14:20 | PM.DS ---
DS: Admitting Diagnosis Discharge Date 05/01/2023 Admitting Diagnosis close left femur fracture, acute UTI, leukocytosis, osteoporosis, GERD, chronic low back pain hyperlipidemia associated with type 2 diabetes mellitus, CAD, type 2 diabetes mellitus DS: Discharge Diagnosis Discharge Diagnosis (1) Closed femur fracture: Code(s): S72.90XA - Unspecified fracture of unspecified femur, initial encounter for closed fracture Status: Acute (2) Periprosthetic fracture around internal prosthetic knee joint: Code(s): M97.8XXA - Periprosthetic fracture around other internal prosthetic joint, initial encounter; Z96.659 - Presence of unspecified artificial knee joint Status: Acute (3) Closed fracture of proximal end of right fibula: Qualifiers: Encounter type: initial encounter Fracture morphology: other fracture Qualified Code(s): S82.831A - Other fracture of upper and lower end of right fibula, initial encounter for closed fracture Code(s): S82.831A - Other fracture of upper and lower end of right fibula, initial encounter for closed fracture Status: Acute (4) Acute UTI: Code(s): N39.0 - Urinary tract infection, site not specified Status: Acute (5) Leukocytosis: Code(s): D72.829 - Elevated white blood cell count, unspecified Status: Acute (6) Osteoporosis: Code(s): M81.0 - Age-related osteoporosis without current pathological fracture Status: Chronic (7) GERD (gastroesophageal reflux disease): Qualifiers: Esophagitis presence: without esophagitis Qualified Code(s): K21.9 - Gastro-esophageal reflux disease without esophagitis Code(s): K21.9 - Gastro-esophageal reflux disease without esophagitis Status: Acute (8) Chronic low back pain: Qualifiers: Back pain laterality: unspecified Sciatica presence: unspecified whether sciatica present Qualified Code(s): M54.50 - Low back pain, unspecified; G89.29 - Other chronic pain Code(s): M54.5 - Low back pain; G89.29 - Other chronic pain Status: Acute (9) CAD (coronary artery disease): Qualifiers: Associated angina: with stable angina Coronary Disease-Associated Artery/Lesion type: [place] artery [place] vs. transplanted heart: [place] heart Qualified Code(s): I25.118 - Atherosclerotic heart disease of [place] coronary artery with other forms of angina pectoris Code(s): I25.10 - Atherosclerotic heart disease of [place] coronary artery without angina pectoris Status: Acute (10) Type 2 diabetes mellitus: Qualifiers: Diabetes mellitus emt intermediate insulin use: without mcfp use Diabetes mellitus complication status: without complication Qualified Code(s): E11.9 - Type 2 diabetes mellitus without complications Code(s): E11.9 - Type 2 diabetes mellitus without complications Status: Acute DS: Summary Hospital Course Reason for hospitalization: fall with bilateral leg fractures Hospital Course: 04/27 H&P: This is a 72-year-old female with past medical history significant for type diabetes mellitus, osteoporosis, hypertension, coronary artery disease, generalized anxiety disorder, obesity.? Patient presents today to the emergency room after she sustained a fall while going down stairs she was at a local concert.? Patient denies any loss of consciousness, she was unable to get up on her own or bear weight and was brought to the emergency room has been found to have femur fracture.? Patient has been in her usual state of health up until this moment denies any fevers, rigors, chills, nausea, vomiting, dizziness, lightheadedness.? Preliminary workup was significant for urinalysis was numerous WBCs. 04/27: Patient doing well today.? Pain is well managed.? Plan on doing orthopedic surgery tomorrow.? She is in a right knee immobilizer due to tibia and fibula fracture. 04/28: Patient having right hip surgery done today.? Urine cul
== END 2023-05-01 15:55 | disposition swing bed (61) | DRG 481 ==
LOC: ANHED 04-27 01:02 → ANH3MED 04-27 01:04
PROVIDERS: Internal Medicine Critical Care Medicine; Orthopaedic Surgery; Admitting Provider Internal Medicine; Emergency Provider Emergency Medicine; PCP Family Medicine; Visit Provider Nurse Practitioner
PROC: 0QSC06Z Reposition Left Lower Femur with Intramedullary Internal Fixation Device, Open Approach (ICD-10-PCS; principal; 2023-04-28 15:00)
DX: S72.455A Nondisplaced supracondylar fracture without intracondylar extension of lower end of left femur, initial encounter for closed fracture (principal); M97.11XA Periprosthetic fracture around internal prosthetic right knee joint, initial encounter; S82.101A Unspecified fracture of upper end of right tibia, initial encounter for closed fracture; N39.0 Urinary tract infection, site not specified; S82.831A Other fracture of upper and lower end of right fibula, initial encounter for closed fracture; I25.10 Atherosclerotic heart disease of native coronary artery without angina pectoris; I10 Essential (primary) hypertension; E78.5 Hyperlipidemia, unspecified; E66.9 Obesity, unspecified; K21.9 Gastro-esophageal reflux disease without esophagitis; M47.816 Spondylosis without myelopathy or radiculopathy, lumbar region; M81.0 Age-related osteoporosis without current pathological fracture; M54.50 Low back pain, unspecified; G89.29 Other chronic pain; F41.1 Generalized anxiety disorder; F32.A Depression, unspecified; W10.9XXA Fall (on) (from) unspecified stairs and steps, initial encounter; Z96.659 Presence of unspecified artificial knee joint; Z79.82 Long term (current) use of aspirin; Z23 Encounter for immunization; Z79.4 Long term (current) use of insulin; Z95.5 Presence of coronary angioplasty implant and graft
CPT/HCPCS: 36415; 71045; 72170; 73560; 73700; 80048; 80053; 81001; 82948; 84484; 85025; 85027; 85610; 85730; 87077; 87086; 87186; 93005; 96361; 96374; 96375; 97110; 97161; 97166; 97530; 97535; 99199; 99285; A9270; C1713; J0696; J1100; J1170; J1815; J1885; J2250; J2371; J2405; J2704; J2710; J3010; J3370; J7030; J7120

== ENCOUNTER 2023-05-01 16:46 | Inpatient (IN) | payer MEDICARE, SELFPAY ==
--- NOTE | ~2023-05-01 | XR_ITS ---
XR abdomen/kub 1V 05/03/2023 08:58 INDICATION: Constipation TECHNIQUE: KUB COMPARISON: None FINDINGS: Bowel gas pattern is normal. There is elevation the right diaphragm. There are cholecystect lucia clips. There is atherosclerosis. There is a healed right inferior pubic ramus fracture. There is no evidence of free air, mass, organomegaly, ascites or obstruction. No abnormal calculi are seen. The bones appear intact. IMPRESSION: 1: No acute abdominal abnormality identified. Reviewed, dictated and finalized at location A. IAL NEEDS NANNY
--- OUTSIDE RECORDS SUMMARY | 2023-05-01 16:56 | XMS_ITS | Clinical Summary ---
Author Name Unknown Address [address], [place] Phone Organization [facility] Address [address], [place] Phone Care Team Providers Care Patient Support Associate Name Role Phone SHARI BUNCH DO Wendie Primary Care Provider [phone] Reason for Visit and Chief Complaint [Patient Encounter] Plan of Treatment No Plan of Treatment Recorded Assessments Includes: Assessments from this encounter No Assessments Recorded Medical Equipment - Implanted Devices Includes: Current Devices No Medical Equipment Recorded Medications Administered Includes: Administered Medications from this encounter No Administered Medications Recorded Results Includes: Results discussed during this encounter No Results Recorded For Specified Dates History of Present Illness Includes: History of Present Illness from this encounter No History of Present Illness Recorded Social History No Social History Recorded - Smoking Status Unknown Medical History Includes: Medical History addressed during this encounter No Medical History Recorded Family History Includes: Family History addressed during this encounter No Family History Recorded Review of Systems Includes: Review of Systems from this encounter No Review of Systems Recorded Mental Status Includes: Mental Status from this encounter No Mental Status Recorded Functional Status Includes: Functional Status from this encounter No Functional Status Recorded Physical Exam Includes: Physical Exam from this encounter No Physical Exam Recorded Encounters Encounter Provider Location Date Check-In Time Check-Out Time Diagnosis [Patient Encounter] ANTHONY WRIGHT APRN-FPA, SENIOR MANAGER [employer] 01/29/2022 10:14AM 11:59PM Insurance Includes: Active Insurance Policies No Insurance Coverage Recorded Guarantor Relationship Effective Dates Guarantor Ph one TIA CAMERON Self [id number] Clinical Notes Includes: Clinical Notes from this encounter No Clinic
--- OUTSIDE RECORDS SUMMARY | 2023-05-01 16:56 | XMS_ITS ---
Author Name Unknown Address [address], [place] Phone Organization [facility] Address [address] [place] [address] Phone Care Team Providers Care Java J2Ee Software Engineer Name Role Phone EJCRISTIANE SHARI RUTHERFORD Primary Care Provider [phone] Plan of Treatment No Plan of Treatment Recorded Assessments Includes: Assessments for all patient encounters No Assessments Recorded Medical Equipment - Implanted Devices Includes: Current and historical Devices No Medical Equipment Recorded Medications Administered Includes: Administered Medications in patient's chart No Administered Medications Recorded Results Includes: Results from 05/01/2022 through 05/01/2023 No Results Recorded For Specified Dates History of Present Illness History of Present Illness not supported for this document type No History of Present Illness Recorded Social History No Social History Recorded - Smoking Status Unknown Medical History Includes: Medical History in patient's chart No Medical History Recorded Family History Includes: Family History in patient's chart No Family History Recorded Review of Systems Review of Systems not supported for this document type No Review of Systems Recorded Mental Status No Mental Status Recorded Functional Status No Functional Status Recorded Physical Exam Physical Exam not supported for this document type No Physical Exam Recorded Insurance Includes: Active Insurance Policies No Insurance Coverage Recorded Guarantor Relationship Effective Dates Guarantor Ph one TIA CAMERON Self [id number] Clinical Notes Includes: Signed Clinical Notes starting from 06/07/2022 No Clinical Notes Recorded
--- NOTE | 2023-05-01 17:36 | PC.NURSE ---
Patient arrived to unit on stretcher, accompanied by EMS, from [place] for rehab. Patient required 4 assist to slide from stretcher to bed. WT, HT and VS obtained.
--- NOTE | 2023-05-01 17:38 | PC.NURSE ---
Chief Clinical Officer has made 2 attempts to do patient's admission. Patient is on the phone and has not started eating her dinner and refused to participate in admission until she is finished on the phone and eats.
[2023-05-01 17:56] VITALS: BMI 28.5
[2023-05-01 18:14] VITALS: BP 115/49; PULSE 94; RESP 16; TEMP 36.8; O2SAT 98
--- NOTE | 2023-05-01 18:38 | PC.NURSE ---
Fisher Oyster was able to complete patient's admission. Patient educated on general hospital policies, visiting hours, bed controls, call light, rapid response and standard precautions. Patient voiced understanding.
[2023-05-01] MEDS: CALCIUM CARBONATE (TUMS) 500 MG (200 MG ELEMENTAL) PO (19:18)
[2023-05-01] MEDS: SENNA/DOCUSATE SODIUM TABLET 2 TAB PO (19:19)
[2023-05-01] MEDS: LIDOCAINE 5% PATCH 2 PATCH TRANSDERM (19:19)
[2023-05-01] MEDS: HYDROcodone/acetaminophen (*CRX) 5-325 MG TABLET 1 TAB PO (19:20)
[2023-05-01 20:00] VITALS: PULSE 93; RESP 16; O2SAT 98
[2023-05-01 20:20] VITALS: PULSE 93
[2023-05-01] MEDS: METOPROLOL TARTRATE 12.5 MG TABLET PO (20:20)
[2023-05-01] MEDS: CEFDINIR 300 MG CAPSULE PO (20:20)
[2023-05-01] MEDS: ACETAMINOPHEN 500 MG TABLET 1000 MG PO (20:21)
[2023-05-01] MEDS: LOSARTAN POTASSIUM 25 MG TABLET PO (20:21)
[2023-05-01 20:25] LABS: Glucose Point of Care 168 mg/dl (65-105)
[2023-05-01 20:27] VITALS: PULSE 93
[2023-05-01] MEDS: METOPROLOL TARTRATE 25 MG TABLET PO (20:27)
[2023-05-02] VITALS (7 sets, daily range): BP systolic 115–137; BP diastolic 50–65; PULSE 81–93; RESP 16–100; TEMP 36.7–37.1; O2SAT 95–100
--- NOTE | 2023-05-02 05:34 | PC.NURSE ---
Addendum entered by Vernell Alves RN 05/02/23 06:33: Patient has not voided since right before 1900 on the . Original Note: Patient was admitted as a swing bed on the from [facility]. Patient is A/O times 2 and has an immobilizer to her lower right extrimity due to a a fracture, and is weight bearing as tolerated on the right, and toe touch weight bearing on the left. Dressings are clean, dry, and intact. Lidocaine patches were placed on the right knee and the left hip last night. Patient requested a pain pill at 1920 for chronic back pain. Patient slept well through the night, with vitals WNL. Patient's accucheck at was 168.
[2023-05-02 07:21] LABS: Basophils Absolute Auto 0.02 K/mm3 (0.00-0.10); Basophils Percent Auto 0.3 % (0.0-1.0); Eosinophils Absolute Auto 0.11 K/mm3 (0.02-0.50); Eosinophils Percent Auto 1.5 % (1.0-6.0); Hematocrit 24.5 % (35.0-42.0); Hemoglobin 7.4 g/dL (11.7-13.8); Immature Granulocyte Absolute 0.03 K/mm3 (0.00-0.00); Immature Granulocyte Percent A 0.4 % (0.0-0.0); Lymphocytes Absolute Auto 1.56 K/mm3 (1.10-4.50); Lymphocytes Percent Auto 21.3 % (18.0-42.0); Mean Corpuscular HGB Conc 30.2 g/dL (32.0-36.0); Mean Corpuscular Hemoglobin 28.1 pg (27.0-31.0); Mean Corpuscular Volume 93.2 fL (78.0-102.0); Mean Platelet Volume 9.3 fl (9.2-11.8); Monocytes Absolute Auto 0.77 K/mm3 (0.10-0.90); Monocytes Percent Auto 10.5 % (2.0-11.0); Neutrophils Absolute Auto 4.8 K/mm3 (1.7-7.2); Platelet Count Result 220 K/mm3 (150-420); Red Blood Count 2.63 M/mm3 (4.20-5.40); White Blood Count 7.3 K/mm3 (4.8-10.8)
[2023-05-02 07:38] LABS: Alanine Aminotransferase 35 U/L (14-59); Albumin Level 2.3 g/dL (3.4-5.0); Alkaline Phosphatase 47 U/L (46-116); Anion Gap 3 mmol/L (8-16); Aspartate Amino Transferase 27 U/L (15-37); Bilirubin,Total 1.2 mg/dL (0.00-1.00); Blood Urea Nitrogen 22 mg/dL (7-18); Calcium 8.7 mg/dL (8.5-10.1); Carbon Dioxide 32 mmol/L (21-32); Chloride 101 mmol/L (98-108); Estimated CRCL calculation 49 ml/min; Estimated Glomerular Filt Rate 58; Glucose 164 mg/dL (70-99); Osmolality Calculated 289 mOsm/kg (285-295); Potassium 3.8 mmol/L (3.5-5.1); Sodium 136 mmol/L (136-145); Total Protein 6.1 g/dL (6.4-8.2)
[2023-05-02 07:43] LABS: Glucose Point of Care 179 mg/dl (65-105)
[2023-05-02 07:48] LABS: Thyroid Stimulating Hormone Reflex 1.91 u/IU/mL (0.36-3.74)
[2023-05-02 07:50] LABS: Ferritin 143 ng/mL (8-252); Iron 31 ug/dL (50-170); Percent Iron Saturation 12 % (12-57)
--- NOTE | 2023-05-02 08:24 | PM.IMHP ---
H&P: HPI History of Present Illness Date/Time: 05/02/23 08:24 Chief Complaint: REhab, femur fracture Narrative: ?This is a 72-year-old female with past medical history significant for type diabetes mellitus, osteoporosis, hypertension, coronary artery disease, generalized anxiety disorder, obesity.?Patient has had a fall when at a concert and she was found to have a femur fracture which required the left leg surgery which has a lebron the right leg has not had anything at this time she is board transfer she is here for therapy .. Patient ia able to eat and drink but she has had some nausea. KUB has been competed and there is no constipation noted. zofran has been ordered and patient has utillitze. Patient does have lack of motivation to things for herself and her reliance on staff for task she could potentially do on her own. It is important to encourage and motivate the patient to particpatin in activities of daily living to increase her strength and regain independence . This can be achieved through regular communication, setting achievable goals and provide positive reinforcements for her efforts. [facility] Past Medical History Medical History Arm pain Bilateral lower extremity edema Blood type A+ CAD (coronary artery disease) Closed dislocation of right shoulder Closed fracture of proximal end of right fibula Closed fracture of right proximal tibia Contusion Decreased hearing Decreased ROM of right shoulder Depression Displaced supracondylar fracture of distal end of left femur without intracondylar extension Encounter for pre-operative examination Encounter for screening mammogram for malignant neoplasm of breast Fatigue Foreign body in ear DENEEN (generalized anxiety disorder) Hyperlipidemia associated with type 2 diabetes mellitus Hypertension associated with diabetes Left hip pain Left shoulder pain Left shoulder pain Obesity, Class I, BMI 30-34.9 Osteoarthritis of lumbar spine Periprosthetic fracture around internal prosthetic knee joint Post-menopausal Right humeral fracture Surgical repair, plate and 8 screws Right wrist pain Sinus congestion Sinusitis Type 2 diabetes mellitus URI (upper respiratory infection) URI (upper respiratory infection) Urinary urgency UTI (urinary tract infection) Surgical History Surgical History H/O cataract extraction H/O shoulder surgery H/O: hysterectomy History of back surgery (~1991) History of coronary artery stent placement History of total knee arthroplasty Family History Family History Father , Age 59 Acute myocardial infarction Mother , Age 84 Acute myocardial infarction Cerebrovascular accident Other Cystic fibrosis Other Family history of arthritis Hypertension Social History Social History Smoking status: Never smoker Second hand tobacco smoke exposure: Yes Alcohol intake: current Drinks per week: 1 Alcohol use details: Social occasions only. Substance use: never Substance use type: does not use Lack of Transportation: No Lack of Food: Never True Current Housing: I Have Housing Concerned About Future Housing: No Difficulty Paying Gas/Electric Bills: No Difficulty Paying for Meds: No Currently Unemployed: No Education: High School Diploma/GED Difficulty w/ Childcare or Family Care: No Living arrangements: alone Occupation/Education: retired Gender identity (if verbalized by the patient): Female Sexual Orientation (if Verbalized by the Patient): Straight or Heterosexual Spiritual care concerns: No Meds Home Medications and Allergies Home Medications Medication Instructions Recorded Confirmed Type aspirin 81 mg tablet,delayed 81 mg PO DAILY 04/07/19
[2023-05-02] MEDS: CALCIUM CARBONATE (TUMS) 500 MG (200 MG ELEMENTAL) PO ×3 (08:52→16:47)
[2023-05-02] MEDS: polyethylene glycoL 3350 17 GM POWD.PACK PO (08:53)
[2023-05-02] MEDS: ISOSORBIDE MONONITRATE 15 MG TAB.ER.24H 45 MG PO (08:53)
[2023-05-02] MEDS: ACETAMINOPHEN 325 MG TABLET 650 MG PO ×2 (08:54→12:31)
[2023-05-02] MEDS: ASPIRIN 81 MG ENTERIC TABLET PO (08:55)
[2023-05-02] MEDS: DULoxetine HCL 30 MG CAPSULE.DR 60 MG PO (08:55)
[2023-05-02] MEDS: EMPAGLIFLOZIN 10 MG TABLET PO (08:55)
[2023-05-02] MEDS: SENNA/DOCUSATE SODIUM TABLET 2 TAB PO (08:55)
[2023-05-02] MEDS: METOPROLOL TARTRATE 25 MG TABLET PO ×2 (08:56→20:10)
[2023-05-02] MEDS: CEFDINIR 300 MG CAPSULE PO ×2 (08:56→20:09)
[2023-05-02] MEDS: METOPROLOL TARTRATE 12.5 MG TABLET PO ×2 (08:57→20:09)
[2023-05-02] MEDS: metFORMIN HCL 500 MG TABLET PO (08:57)
[2023-05-02] MEDS: CLOPIDOGREL BISULFATE 75 MG TABLET PO (08:57)
[2023-05-02] MEDS: ROSUVASTATIN 10 MG TABLET PO (08:57)
[2023-05-02] MEDS: LOSARTAN POTASSIUM 25 MG TABLET PO ×2 (08:58→20:10)
[2023-05-02] MEDS: LIDOCAINE 5% PATCH 2 PATCH TRANSDERM (08:58)
[2023-05-02] MEDS: FERROUS SULFATE 325 MG TABLET DR PO (08:58)
[2023-05-02] MEDS: ASCORBIC ACID 500 MG TABLET PO (08:58)
[2023-05-02 11:48] LABS: Glucose Point of Care 158 mg/dl (65-105)
--- NOTE | 2023-05-02 12:02 | PC.NURSE ---
Patient states that she is not ready for lunch at this time. Lunch was placed on patient's table and patient was instructed to use call light for assistance getting set up when she is ready.
[2023-05-02] MEDS: ONDANSETRON HCL ODT 4 MG TABLET PO (16:30)
[2023-05-02 16:56] LABS: Glucose Point of Care 167 mg/dl (65-105)
--- NOTE | 2023-05-02 17:29 | PC.NURSE ---
Patient has had 3 episodes of emesis this afternoon. Glass Cutter Hand waiting on 5 pm medication, due to patient vomiting with administration of Tums.
[2023-05-02] MEDS: ACETAMINOPHEN 500 MG TABLET 1000 MG PO (20:10)
[2023-05-02 21:09] LABS: Glucose Point of Care 147 mg/dl (65-105)
[2023-05-03] VITALS (8 sets, daily range): BP systolic 109–143; BP diastolic 50–78; PULSE 80–91; RESP 14–18; TEMP 36.2–36.8; O2SAT 95–99
[2023-05-03 08:00] LABS: Glucose Point of Care 143 mg/dl (65-105)
[2023-05-03] MEDS: CALCIUM CARBONATE (TUMS) 500 MG (200 MG ELEMENTAL) PO ×3 (08:20→17:25)
[2023-05-03] MEDS: ONDANSETRON HCL ODT 4 MG TABLET PO (08:21)
[2023-05-03] MEDS: METOPROLOL TARTRATE 12.5 MG TABLET PO ×2 (09:20→21:04)
[2023-05-03] MEDS: ACETAMINOPHEN 325 MG TABLET 650 MG PO ×3 (09:30→17:25)
[2023-05-03] MEDS: SENNA/DOCUSATE SODIUM TABLET 2 TAB PO ×2 (09:35→17:25)
[2023-05-03] MEDS: ROSUVASTATIN 10 MG TABLET PO (09:36)
[2023-05-03] MEDS: DULoxetine HCL 30 MG CAPSULE.DR 60 MG PO (09:37)
[2023-05-03] MEDS: LOSARTAN POTASSIUM 25 MG TABLET PO ×2 (09:37→21:06)
[2023-05-03] MEDS: ASPIRIN 81 MG ENTERIC TABLET PO (09:38)
[2023-05-03] MEDS: metFORMIN HCL 500 MG TABLET PO ×2 (09:38→17:25)
[2023-05-03] MEDS: METOPROLOL TARTRATE 25 MG TABLET PO ×2 (09:39→21:03)
[2023-05-03] MEDS: EMPAGLIFLOZIN 10 MG TABLET PO (09:39)
[2023-05-03] MEDS: CEFDINIR 300 MG CAPSULE PO (09:40)
[2023-05-03] MEDS: FERROUS SULFATE 325 MG TABLET DR PO (09:41)
[2023-05-03] MEDS: CLOPIDOGREL BISULFATE 75 MG TABLET PO (09:41)
[2023-05-03] MEDS: LIDOCAINE 5% PATCH 2 PATCH TRANSDERM (09:43)
[2023-05-03] MEDS: ISOSORBIDE MONONITRATE 15 MG TAB.ER.24H 45 MG PO (10:20)
[2023-05-03] MEDS: ASCORBIC ACID 500 MG TABLET PO (10:41)
[2023-05-03] MEDS: polyethylene glycoL 3350 17 GM POWD.PACK PO (10:42)
[2023-05-03] MEDS: ACETAMINOPHEN 500 MG TABLET 1000 MG PO (21:03)
--- NOTE | 2023-05-03 22:31 | PC.NURSE ---
report to festus arenas rn. all questions answered at this time. released care of pt.
[2023-05-04] VITALS (7 sets, daily range): BP systolic 120–158; BP diastolic 57–68; PULSE 18–90; RESP 14–18; TEMP 36.4–36.6; O2SAT 98–100
--- NOTE | 2023-05-04 00:29 | PC.NURSE ---
Patient resting quietly. Appears sleeping with no resp distress or c/o pain. Calll light and belongings within reach.
--- NOTE | 2023-05-04 01:57 | PC.NURSE ---
Patient resting quietly. Repositioned onto back per patient request. Call light and belongings within reach.
--- NOTE | 2023-05-04 03:14 | PC.NURSE ---
Patient resting quietly. lNo signs of distress noted. Call light and belongings within reach.
[2023-05-04] MEDS: CALCIUM CARBONATE (TUMS) 500 MG (200 MG ELEMENTAL) PO ×3 (08:20→17:34)
[2023-05-04] MEDS: LOSARTAN POTASSIUM 25 MG TABLET PO ×2 (09:00→20:46)
[2023-05-04] MEDS: metFORMIN HCL 500 MG TABLET PO ×2 (09:05→17:34)
[2023-05-04] MEDS: ACETAMINOPHEN 325 MG TABLET 650 MG PO ×3 (10:00→17:34)
[2023-05-04] MEDS: METOPROLOL TARTRATE 25 MG TABLET PO ×2 (10:01→20:46)
[2023-05-04] MEDS: ASCORBIC ACID 500 MG TABLET PO (10:01)
[2023-05-04] MEDS: METOPROLOL TARTRATE 12.5 MG TABLET PO ×2 (10:02→20:46)
[2023-05-04] MEDS: PANTOPRAZOLE 40 MG TABLET PO (10:02)
[2023-05-04] MEDS: ISOSORBIDE MONONITRATE 15 MG TAB.ER.24H 45 MG PO (10:03)
[2023-05-04] MEDS: DULoxetine HCL 30 MG CAPSULE.DR 60 MG PO (10:03)
[2023-05-04] MEDS: CLOPIDOGREL BISULFATE 75 MG TABLET PO (10:03)
[2023-05-04] MEDS: ROSUVASTATIN 10 MG TABLET PO (10:04)
[2023-05-04] MEDS: EMPAGLIFLOZIN 10 MG TABLET PO (10:04)
[2023-05-04] MEDS: FERROUS SULFATE 325 MG TABLET DR PO (10:04)
[2023-05-04] MEDS: ASPIRIN 81 MG ENTERIC TABLET PO (10:04)
[2023-05-04] MEDS: TRIAMCINOLONE ACET 0.1% CREAM 15 GM TUBE 1 APPLIC TOPICAL (10:05)
[2023-05-04 12:39] LABS: Glucose Point of Care 152 mg/dl (65-105)
[2023-05-04] MEDS: ACETAMINOPHEN 500 MG TABLET 1000 MG PO (20:46)
[2023-05-04] MEDS: HYDROcodone/acetaminophen (*CRX) 5-325 MG TABLET 1 TAB PO (20:46)
[2023-05-05] VITALS (7 sets, daily range): BP systolic 114–140; BP diastolic 62; PULSE 80–100; RESP 14–18; TEMP 36.8; O2SAT 98
[2023-05-05 07:51] LABS: Glucose Point of Care 146 mg/dl (65-105)
[2023-05-05] MEDS: CALCIUM CARBONATE (TUMS) 500 MG (200 MG ELEMENTAL) PO ×3 (08:38→16:10)
[2023-05-05] MEDS: METOPROLOL TARTRATE 12.5 MG TABLET PO ×2 (09:39→21:40)
[2023-05-05] MEDS: FERROUS SULFATE 325 MG TABLET DR PO (09:40)
[2023-05-05] MEDS: ASCORBIC ACID 500 MG TABLET PO (09:40)
[2023-05-05] MEDS: ISOSORBIDE MONONITRATE 15 MG TAB.ER.24H 45 MG PO (09:40)
[2023-05-05] MEDS: ACETAMINOPHEN 325 MG TABLET 650 MG PO ×3 (09:40→16:09)
[2023-05-05] MEDS: EMPAGLIFLOZIN 10 MG TABLET PO (09:41)
[2023-05-05] MEDS: ROSUVASTATIN 10 MG TABLET PO (09:41)
[2023-05-05] MEDS: METOPROLOL TARTRATE 25 MG TABLET PO ×2 (09:41→21:42)
[2023-05-05] MEDS: CLOPIDOGREL BISULFATE 75 MG TABLET PO (09:41)
[2023-05-05] MEDS: LOSARTAN POTASSIUM 25 MG TABLET PO ×2 (09:41→21:40)
[2023-05-05] MEDS: metFORMIN HCL 500 MG TABLET PO ×2 (09:42→16:09)
[2023-05-05] MEDS: ASPIRIN 81 MG ENTERIC TABLET PO (09:42)
[2023-05-05] MEDS: DULoxetine HCL 30 MG CAPSULE.DR 60 MG PO (09:43)
[2023-05-05] MEDS: PANTOPRAZOLE 40 MG TABLET PO (09:43)
[2023-05-05 11:50] LABS: Glucose Point of Care 191 mg/dl (65-105)
[2023-05-05 17:14] LABS: Glucose Point of Care 187 mg/dl (65-105)
[2023-05-05] MEDS: ACETAMINOPHEN 500 MG TABLET 1000 MG PO (21:40)
[2023-05-05] MEDS: HYDROcodone/acetaminophen (*CRX) 5-325 MG TABLET 1 TAB PO (21:41)
[2023-05-05 21:46] LABS: Glucose Point of Care 171 mg/dl (65-105)
[2023-05-05] MEDS: ONDANSETRON HCL ODT 4 MG TABLET PO (23:23)
[2023-05-06] VITALS (7 sets, daily range): BP systolic 97–124; BP diastolic 47–54; PULSE 74–98; RESP 16; TEMP 36.2–36.8; O2SAT 98–99
--- NOTE | 2023-05-06 05:56 | PC.NURSE ---
Patient c/o insomnia even after given Fentress and repositioning in bed. When rounded on at 2300 patient was sleeping, but called at 2310 c/o that I can't sleep . Patient was continent of urine once, and incontinent once, requiring an entire bed change. Patient is cheerful, and jokes with staff. She remains toe touch to the left and weight bearing as tolerated to the right. She uses a bed [place] at night, and rolls well.
[2023-05-06 08:10] LABS: Glucose Point of Care 146 mg/dl (65-105)
[2023-05-06] MEDS: CLOPIDOGREL BISULFATE 75 MG TABLET PO (09:06)
[2023-05-06] MEDS: LOSARTAN POTASSIUM 25 MG TABLET PO ×2 (09:06→20:56)
[2023-05-06] MEDS: ROSUVASTATIN 10 MG TABLET PO (09:06)
[2023-05-06] MEDS: ACETAMINOPHEN 325 MG TABLET 650 MG PO ×3 (09:06→16:40)
[2023-05-06] MEDS: ASCORBIC ACID 500 MG TABLET PO (09:06)
[2023-05-06] MEDS: METOPROLOL TARTRATE 25 MG TABLET PO ×2 (09:06→20:56)
[2023-05-06] MEDS: EMPAGLIFLOZIN 10 MG TABLET PO (09:06)
[2023-05-06] MEDS: ISOSORBIDE MONONITRATE 15 MG TAB.ER.24H 45 MG PO (09:07)
[2023-05-06] MEDS: metFORMIN HCL 500 MG TABLET PO ×2 (09:07→16:41)
[2023-05-06] MEDS: METOPROLOL TARTRATE 12.5 MG TABLET PO ×2 (09:07→20:56)
[2023-05-06] MEDS: FERROUS SULFATE 325 MG TABLET DR PO (09:07)
[2023-05-06] MEDS: ASPIRIN 81 MG ENTERIC TABLET PO (09:07)
[2023-05-06] MEDS: CALCIUM CARBONATE (TUMS) 500 MG (200 MG ELEMENTAL) PO ×3 (09:07→16:43)
[2023-05-06] MEDS: DULoxetine HCL 30 MG CAPSULE.DR 60 MG PO (09:08)
[2023-05-06] MEDS: PANTOPRAZOLE 40 MG TABLET PO (09:08)
[2023-05-06] MEDS: LIDOCAINE 5% PATCH 2 PATCH TRANSDERM (09:08)
[2023-05-06] MEDS: HYDROcodone/acetaminophen (*CRX) 5-325 MG TABLET 1 TAB PO (11:35)
[2023-05-06 11:41] LABS: Glucose Point of Care 186 mg/dl (65-105)
[2023-05-06 16:42] LABS: Glucose Point of Care 142 mg/dl (65-105)
[2023-05-06] MEDS: ACETAMINOPHEN 500 MG TABLET 1000 MG PO (20:55)
[2023-05-06 21:00] LABS: Glucose Point of Care 163 mg/dl (65-105)
[2023-05-07] VITALS: BP 108/61; PULSE 88; RESP 16; TEMP 36.7; O2SAT 98
[2023-05-07 08:00] VITALS: BP 114/49; PULSE 82; RESP 18; TEMP 36; O2SAT 100
[2023-05-07] MEDS: CALCIUM CARBONATE (TUMS) 500 MG (200 MG ELEMENTAL) PO ×3 (08:01→16:59)
[2023-05-07 08:08] LABS: Glucose Point of Care 175 mg/dl (65-105)
[2023-05-07] MEDS: DULoxetine HCL 30 MG CAPSULE.DR 60 MG PO (08:59)
[2023-05-07 09:00] VITALS: PULSE 88
[2023-05-07] MEDS: ASCORBIC ACID 500 MG TABLET PO (09:00)
[2023-05-07] MEDS: ISOSORBIDE MONONITRATE 15 MG TAB.ER.24H 45 MG PO (09:00)
[2023-05-07] MEDS: ASPIRIN 81 MG ENTERIC TABLET PO (09:00)
[2023-05-07] MEDS: LOSARTAN POTASSIUM 25 MG TABLET PO ×2 (09:00→20:08)
[2023-05-07] MEDS: METOPROLOL TARTRATE 25 MG TABLET PO ×2 (09:00→20:08)
[2023-05-07 09:01] VITALS: PULSE 88
[2023-05-07] MEDS: metFORMIN HCL 500 MG TABLET PO ×2 (09:01→16:58)
[2023-05-07] MEDS: EMPAGLIFLOZIN 10 MG TABLET PO (09:01)
[2023-05-07] MEDS: METOPROLOL TARTRATE 12.5 MG TABLET PO ×2 (09:01→20:08)
[2023-05-07] MEDS: ROSUVASTATIN 10 MG TABLET PO (09:01)
[2023-05-07] MEDS: CLOPIDOGREL BISULFATE 75 MG TABLET PO (09:01)
[2023-05-07] MEDS: FERROUS SULFATE 325 MG TABLET DR PO (09:01)
[2023-05-07] MEDS: ACETAMINOPHEN 325 MG TABLET 650 MG PO ×3 (09:01→16:58)
[2023-05-07] MEDS: PANTOPRAZOLE 40 MG TABLET PO (09:01)
[2023-05-07] MEDS: LIDOCAINE 5% PATCH 2 PATCH TRANSDERM (09:02)
--- NOTE | 2023-05-07 11:15 | PM.EVENT ---
Event Note Event Note Event Note: Call placed to Dr Fofana office to get a copy of orders that he would like for patient dressing change as she returned from his office with orders to change dressing according to surgeon recommendation and we are unable to see his notes they will fax the orders to [phone]. We will follow those orders.
[2023-05-07 12:14] LABS: Glucose Point of Care 173 mg/dl (65-105)
[2023-05-07 16:00] VITALS: BP 127/60; PULSE 97; RESP 18; TEMP 37.1; O2SAT 100
[2023-05-07 17:04] LABS: Glucose Point of Care 154 mg/dl (65-105)
[2023-05-07 20:08] VITALS: PULSE 87
[2023-05-07] MEDS: ACETAMINOPHEN 500 MG TABLET 1000 MG PO (20:08)
[2023-05-07 20:13] LABS: Glucose Point of Care 164 mg/dl (65-105)
[2023-05-08] VITALS: BP 130/62; PULSE 87; RESP 16; TEMP 36.6; O2SAT 98
[2023-05-08 07:45] VITALS: BP 130/79; PULSE 93; RESP 16; TEMP 36.5; O2SAT 99
[2023-05-08 08:08] LABS: Glucose Point of Care 164 mg/dl (65-105)
[2023-05-08] MEDS: LIDOCAINE 5% PATCH 2 PATCH TRANSDERM (09:23)
[2023-05-08] MEDS: CALCIUM CARBONATE (TUMS) 500 MG (200 MG ELEMENTAL) PO ×3 (09:24→18:13)
[2023-05-08] MEDS: ACETAMINOPHEN 325 MG TABLET 650 MG PO ×3 (09:24→21:00)
[2023-05-08] MEDS: EMPAGLIFLOZIN 10 MG TABLET PO (09:24)
[2023-05-08] MEDS: DULoxetine HCL 30 MG CAPSULE.DR 60 MG PO (09:24)
--- NOTE | 2023-05-08 09:24 | PM.DS ---
DS: Admitting Diagnosis Discharge Date 05/09/2023 Admitting Diagnosis closed fracture of right proximal tibia, acute UTI, GERD, hyperlipidemia so seated with type 2 diabetes mellitus, depression DS: Discharge Diagnosis Discharge Diagnosis (1) Closed fracture of right proximal tibia: Qualifiers: Encounter type: initial encounter Fracture morphology: other fracture Qualified Code(s): S82.191A - Other fracture of upper end of right tibia, initial encounter for closed fracture Code(s): S82.101A - Unspecified fracture of upper end of right tibia, initial encounter for closed fracture Status: Acute (2) Acute UTI: Code(s): N39.0 - Urinary tract infection, site not specified Status: Acute (3) GERD (gastroesophageal reflux disease): Qualifiers: Esophagitis presence: without esophagitis Qualified Code(s): K21.9 - Gastro-esophageal reflux disease without esophagitis Code(s): K21.9 - Gastro-esophageal reflux disease without esophagitis Status: Acute (4) Hyperlipidemia associated with type 2 diabetes mellitus: Code(s): E11.69 - Type 2 diabetes mellitus with other specified complication; E78.5 - Hyperlipidemia, unspecified Status: Acute (5) Depression: Code(s): F32.9 - Major depressive disorder, single episode, unspecified Status: Acute (6) Displaced supracondylar fracture of distal end of left femur without intracondylar extension: Qualifiers: Encounter type: initial encounter Fracture type: closed Qualified Code(s): S72.452A - Displaced supracondylar fracture without intracondylar extension of lower end of left femur, initial encounter for closed fracture Code(s): S72.452A - Displaced supracondylar fracture without intracondylar extension of lower end of left femur, initial encounter for closed fracture Status: Acute (7) Periprosthetic fracture around internal prosthetic knee joint: Code(s): M97.8XXA - Periprosthetic fracture around other internal prosthetic joint, initial encounter; Z96.659 - Presence of unspecified artificial knee joint Status: Acute (8) Closed fracture of proximal end of right fibula: Qualifiers: Encounter type: initial encounter Fracture morphology: other fracture Qualified Code(s): S82.831A - Other fracture of upper and lower end of right fibula, initial encounter for closed fracture Code(s): S82.831A - Other fracture of upper and lower end of right fibula, initial encounter for closed fracture Status: Acute DS: Summary Hospital Course Reason for hospitalization: Swing bed for rehab s/p left femur fracture and right tib/fib fractures Hospital Course: Patient was admitted for swing bed for rehabilitation status post left femur fracture and right tib-fib fractures. Initially patient was hesitant to work with therapy but eventually did much better. She is toe-touch weight-bearing on the left lower extremity and has a knee immobilizer on the right lower extremity. Patient is not progressing as quickly as anticipated towards plan to discharge home with health. For this reason she and family sought [facility] at [facility] to continue rehabilitation with possible discharge home verses residential [facility] placement. Status at Discharge Cognitive/behavioral status at discharge: Awake alert oriented and pleasant Functional status at discharge: wheelchair bound Overall status at discharge: patient is not back to baseline Time Spent with Patient Time attestation: Total time spent providing and/or coordinating discharge services: 35 minutes Time spent: Greater than 30 minutes Exam Narrative: GENERAL: Well-appearing, well-nourished, and in no acute distress. HEAD: Normocephalic, atraumatic. ENT:? Mucous membranes moist. CHEST: Clear to auscultation.? No respiratory distress. HEART: Regular rate and rhythm. ? Normal peripheral pulses. ABDOMEN: Soft, nontend
[2023-05-08 09:25] VITALS: PULSE 97
[2023-05-08] MEDS: METOPROLOL TARTRATE 25 MG TABLET PO ×2 (09:25→20:59)
[2023-05-08] MEDS: CLOPIDOGREL BISULFATE 75 MG TABLET PO (09:25)
[2023-05-08] MEDS: METOPROLOL TARTRATE 12.5 MG TABLET PO ×2 (09:25→20:58)
[2023-05-08] MEDS: ISOSORBIDE MONONITRATE 15 MG TAB.ER.24H 45 MG PO (09:25)
[2023-05-08] MEDS: metFORMIN HCL 500 MG TABLET PO ×2 (09:25→18:13)
[2023-05-08] MEDS: FERROUS SULFATE 325 MG TABLET DR PO (09:25)
[2023-05-08] MEDS: ROSUVASTATIN 10 MG TABLET PO (09:25)
[2023-05-08] MEDS: ASPIRIN 81 MG ENTERIC TABLET PO (09:26)
[2023-05-08] MEDS: LOSARTAN POTASSIUM 25 MG TABLET PO ×2 (09:26→21:00)
[2023-05-08] MEDS: ASCORBIC ACID 500 MG TABLET PO (09:27)
[2023-05-08] MEDS: PANTOPRAZOLE 40 MG TABLET PO (09:27)
[2023-05-08 12:26] LABS: Glucose Point of Care 161 mg/dl (65-105)
[2023-05-08 16:35] VITALS: BP 120/57; PULSE 90; RESP 16; TEMP 37; O2SAT 98
[2023-05-08 17:13] LABS: Glucose Point of Care 141 mg/dl (65-105)
[2023-05-08 20:58] VITALS: PULSE 87
[2023-05-08 20:59] VITALS: PULSE 87
[2023-05-08 20:59] LABS: Glucose Point of Care 148 mg/dl (65-105)
[2023-05-08] MEDS: HYDROcodone/acetaminophen (*CRX) 5-325 MG TABLET 1 TAB PO (20:59)
[2023-05-09] VITALS: BP 106/43; PULSE 87; RESP 16; TEMP 36.2; O2SAT 98
[2023-05-09] MEDS: ACETAMINOPHEN 325 MG TABLET 650 MG PO (06:32)
[2023-05-09 07:50] VITALS: BP 130/60; PULSE 91; RESP 16; TEMP 36.2; O2SAT 98
[2023-05-09 08:11] LABS: Glucose Point of Care 148 mg/dl (65-105)
[2023-05-09 08:59] VITALS: PULSE 70
[2023-05-09] MEDS: DULoxetine HCL 30 MG CAPSULE.DR 60 MG PO (08:59)
[2023-05-09] MEDS: ISOSORBIDE MONONITRATE 15 MG TAB.ER.24H 45 MG PO (08:59)
[2023-05-09] MEDS: METOPROLOL TARTRATE 12.5 MG TABLET PO (08:59)
[2023-05-09 09:00] VITALS: PULSE 70
[2023-05-09] MEDS: FERROUS SULFATE 325 MG TABLET DR PO (09:00)
[2023-05-09] MEDS: EMPAGLIFLOZIN 10 MG TABLET PO (09:00)
[2023-05-09] MEDS: CALCIUM CARBONATE (TUMS) 500 MG (200 MG ELEMENTAL) PO (09:00)
[2023-05-09] MEDS: CLOPIDOGREL BISULFATE 75 MG TABLET PO (09:00)
[2023-05-09] MEDS: LOSARTAN POTASSIUM 25 MG TABLET PO (09:00)
[2023-05-09] MEDS: METOPROLOL TARTRATE 25 MG TABLET PO (09:00)
[2023-05-09] MEDS: ROSUVASTATIN 10 MG TABLET PO (09:00)
[2023-05-09] MEDS: LIDOCAINE 5% PATCH 2 PATCH TRANSDERM (09:00)
[2023-05-09] MEDS: ASPIRIN 81 MG ENTERIC TABLET PO (09:00)
[2023-05-09] MEDS: metFORMIN HCL 500 MG TABLET PO (09:00)
[2023-05-09] MEDS: ASCORBIC ACID 500 MG TABLET PO (09:00)
[2023-05-09] MEDS: PANTOPRAZOLE 40 MG TABLET PO (09:00)
--- NOTE | 2023-05-09 10:15 | PC.NURSE ---
Report called to Gail at [facility] and rehab. Aid will be coming to transport patient across the street between 1030 and 1130.
--- NOTE | 2023-05-09 11:20 | PC.NURSE ---
[facility] and family service aide here to transport patient across the street via wheelchair. All belongings gathered and sent with patient. Patients friend took decorations home for patient. Patient transferred from bed to wheelchair with 2x assist, legs on leg rest. All discharge instructions and educations sent with patient in discharge packest for nurse at long-term. Patient denies any questions at discharge. Left floor via wheelchair accompanied by aid.
== END 2023-05-09 11:20 | DRG 560 ==
PROVIDERS: Nurse Practitioner; Admitting Provider Internal Medicine; PCP Family Medicine; Visit Provider Internal Medicine
DX: S72.452D Displaced supracondylar fracture without intracondylar extension of lower end of left femur, subsequent encounter for closed fracture with routine healing (principal); N39.0 Urinary tract infection, site not specified; M97.12XD Periprosthetic fracture around internal prosthetic left knee joint, subsequent encounter; S82.831D Other fracture of upper and lower end of right fibula, subsequent encounter for closed fracture with routine healing; S82.101D Unspecified fracture of upper end of right tibia, subsequent encounter for closed fracture with routine healing; I10 Essential (primary) hypertension; I25.10 Atherosclerotic heart disease of native coronary artery without angina pectoris; K21.9 Gastro-esophageal reflux disease without esophagitis; E66.9 Obesity, unspecified; E11.9 Type 2 diabetes mellitus without complications; E78.5 Hyperlipidemia, unspecified; M81.0 Age-related osteoporosis without current pathological fracture; M47.816 Spondylosis without myelopathy or radiculopathy, lumbar region; R11.2 Nausea with vomiting, unspecified; F32.A Depression, unspecified; F41.1 Generalized anxiety disorder; W19.XXXD Unspecified fall, subsequent encounter; Z96.659 Presence of unspecified artificial knee joint; Z79.82 Long term (current) use of aspirin; Z79.4 Long term (current) use of insulin; Z79.02 Long term (current) use of antithrombotics/antiplatelets
CPT/HCPCS: 36415; 74018; 80053; 82728; 82948; 83540; 83550; 84443; 85025; 97110; 97161; 97165; 97530; 97535; A9270

== ENCOUNTER 2023-06-02 09:36 | Outpatient (CLI) | payer MEDICARE, SELFPAY ==
--- NOTE | ~2023-06-02 | XR_ITS ---
Left Knee Technique: AP, lateral, and sunrise views were obtained. Clinical History: Fracture COMPARISON: 04/26/2023 Findings: Left knee arthroplasty hardware is unchanged. There is been interval ORIF of oblique fractu re of the distal femoral metadiaphyseal region, with femoral intramedullary lebron and distal interlocki ng screws partially imaged. Fracture demonstrates some callus formation. Soft tissues are unremarkabl e. No joint effusion is seen. Impression: Status post interval ORIF of oblique fracture of the distal femoral metadiaphysis, with partial inter surekha healing. Right knee arthroplasty hardware otherwise is unchanged. Reviewed, dictated and finalized at location M. UCTION MACHINE OPERATOR Impression: Status post interval ORIF of oblique fracture of the distal femoral metadiaphys is, with partial interval healing. Right knee arthroplasty hardware otherwise is unchanged.
--- NOTE | ~2023-06-02 | XR_ITS ---
Right Knee Technique: AP, lateral, and sunrise views were obtained. Clinical History: Fracture COMPARISON: 04/26/2023 Findings: Right knee arthroplasty hardware is in place, unchanged. Periprosthetic oblique fracture of the proximal tibia is similar to prior exam, partial interval healing. There is also partial healing of oblique fracture of the proximal fibular head/neck. Soft tissues are unremarkable. No joint effus ion is seen. Impression: Partial interval healing of periprosthetic fracture of the proximal tibia. Partial interval healing of oblique fracture the proximal fibular head/neck. Right knee arthroplasty hardware is unchanged. Reviewed, dictated and finalized at location . CAL INSTRUMENT TECHNICIAN Impression: Partial interval healing of periprosthetic fracture of the proximal tibia. Partial interval healing of oblique fracture the proximal fibular head/neck. Right knee arthroplasty hardware is unchanged.
== END 2023-06-02 09:37 | disposition home or self-care (01) ==
LOC: CHSIMG 09:39
PROVIDERS: PCP Family Medicine; Visit Provider Orthopaedic Surgery
DX: S72.452A Displaced supracondylar fracture without intracondylar extension of lower end of left femur, initial encounter for closed fracture (principal); S82.101A Unspecified fracture of upper end of right tibia, initial encounter for closed fracture; S82.031A Displaced transverse fracture of right patella, initial encounter for closed fracture; Z98.890 Other specified postprocedural states; Z96.651 Presence of right artificial knee joint
CPT/HCPCS: 73560

== ENCOUNTER 2023-06-30 10:01 | Outpatient (CLI) | payer MEDICARE, SELFPAY ==
--- NOTE | ~2023-06-30 | XR_ITS ---
Right Knee Technique: AP, lateral, and sunrise views were obtained. Clinical History: Fracture COMPARISON: 06/02/2023 Findings: Continued interval healing of periprosthetic fracture of the proximal tibia noted. Continue d interval healing of fibular neck fracture also noted. Underlying right knee arthroplasty unchanged. Soft tissues are unremarkable. No joint effusion is seen. Impression: Continued interval healing of periprosthetic fracture the proximal tibia, as well as proximal fibular neck fracture. Right knee arthroplasty unchanged. Reviewed, dictated and finalized at location M. CLINICAL RESEARCH Impression: Continued interval healing of periprosthetic fracture the proximal tibia, as we ll as proximal fibular neck fracture. Right knee arthroplasty unchanged.
--- NOTE | ~2023-06-30 | XR_ITS ---
EXAMINATION: XR femur LT min 2V DATE: 06/30/2023 10:24 INDICATION: Displaced supracondylar fracture of the right femur. TECHNIQUE: Overlapping proximal and distal, AP and lateral views of the left femur were obtained. COMPARISON: 06/02/2023 FINDINGS: No significant change in mild lateral displacement and minimal lateral angulation of an oblique fract ure of the distal right femur which is fixed with a retrograde intramedullary lebron and interlocking sc rews proximal and distal to the fracture plane. There is increasing bridging callus formation about t he margins of the fracture. There is still some discernible lucency along the fracture plane. No new fractures identified. Likely revision left total knee arthroplasty with patellar resurfacing which re jerry in near-anatomic alignment. Mild osteoarthritis at the left hip. Scattered vascular calcificati ons. Soft tissues are otherwise unremarkable. IMPRESSION: 1. Progressive healing of an internally fixed fracture of the distal left femoral metaphysis which re jerry in near-anatomic alignment. Reviewed, dictated and finalized at location A. O STUDIO ASSISTANT IMPRESSION: 1. Progressive healing of an internally fixed fracture of the distal left femor al metaphysis which remains in near-anatomic alignment.
== END 2023-06-30 10:02 | disposition home or self-care (01) ==
LOC: CHSIMG 10:03
PROVIDERS: PCP Family Medicine; Visit Provider Orthopaedic Surgery
DX: S72.452D Displaced supracondylar fracture without intracondylar extension of lower end of left femur, subsequent encounter for closed fracture with routine healing (principal); S82.101D Unspecified fracture of upper end of right tibia, subsequent encounter for closed fracture with routine healing; S82.831D Other fracture of upper and lower end of right fibula, subsequent encounter for closed fracture with routine healing
CPT/HCPCS: 73552; 73560

== ENCOUNTER 2023-07-28 08:13 | Outpatient (CLI) | payer MEDICARE, SELFPAY ==
--- NOTE | ~2023-07-28 | XR_ITS ---
EXAMINATION: XR knee RT 3V DATE: 07/28/2023 08:42 INDICATION: Fracture at the upper end of the right tibia TECHNIQUE: Anteroposterior, sunrise and crosstable lateral views of the right knee were obtained COMPARISON: Radiograph dated 06/30/[address] dated 04/28/2023 FINDINGS: Right total knee arthroplasty without patellar resurfacing. There is approximately 2.5 cm lateral sub luxation of the patella relative to the femoral component with prominent osteolysis and remodeling of the articular surface of the patella with loss of bone stock and convex contour to the normally conv ex patellar apical ridge. 12 degrees genu valgus. Again seen are healing metaphyseal fracture of the proximal tibia and right fibula. There is been progressive maturation of solidly bridging callus form ation about the fibular fracture which remains in near-anatomic alignment with no discernible lucency along the fracture plane. Again seen is some callus formation and subtle increased sclerosis along t he nondisplaced oblique periprosthetic fracture at the proximal right tibial metaphysis. There is min imal residual lucency along the fracture plane at the medial cortex of the proximal tibia. There are a pair of screws at the proximal tibia likely for prior relocation osteotomy of the anterior tibial t uberosity. Moderate-sized right knee joint effusion with multiple loose osteochondral bodies at the r ecess of the joint space. IMPRESSION: 1. Right total knee arthroplasty with progressive healing of a periprosthetic fracture at the proxima l right tibia with 12 degrees valgus angulation. 2. Advanced healing of a fracture of the proximal right fibular metaphysis. 3. 2.5 cm lateral patellar subluxation with prominent chronic osteolysis and remodeling of the articu lar surface. Reviewed, dictated and finalized at location B. IMPRESSION: 1. Right total knee arthroplasty with progressive healing of a periprosthetic f racture at the proximal right tibia with 12 degrees valgus angulation. 2. Advanced healing of a fracture of the proximal right fibular metaphysis. 3. 2.5 cm lateral patellar subluxation with prominent chronic osteolysis and re modeling of the articular surface.
--- NOTE | ~2023-07-28 | XR_ITS ---
Left Knee Technique: AP, lateral, and sunrise views were obtained. Clinical History: Fracture Findings: Patient is status post ORIF of oblique fracture of the distal femur, with progressive james nued interval healing since prior exam. Left knee arthroplasty hardware is unchanged. Soft tissues ar e unremarkable. No joint effusion is seen. Impression: Continued routine partial interval healing of oblique fracture the distal femur since prior exam, sta tus post prior ORIF. Left knee arthroplasty unchanged. Reviewed, dictated and finalized at location M. Impression: Continued routine partial interval healing of oblique fracture the distal femur since prior exam, status post prior ORIF. Left knee arthroplasty unchanged.
== END 2023-07-28 08:14 | disposition home or self-care (01) ==
LOC: CHSIMG 08:15
PROVIDERS: PCP Family Medicine; Visit Provider Orthopaedic Surgery
DX: S82.101A Unspecified fracture of upper end of right tibia, initial encounter for closed fracture (principal); S72.452D Displaced supracondylar fracture without intracondylar extension of lower end of left femur, subsequent encounter for closed fracture with routine healing; Z96.653 Presence of artificial knee joint, bilateral; S82.831D Other fracture of upper and lower end of right fibula, subsequent encounter for closed fracture with routine healing; T84.022A Instability of internal right knee prosthesis, initial encounter; M89.561 Osteolysis, right lower leg
CPT/HCPCS: 73562

== ENCOUNTER 2023-07-31 13:51 | Outpatient (CLI) | payer MEDICARE, SELFPAY ==
--- NOTE | ~2023-07-31 | US_ITS ---
EXAMINATION: US soft tissue head and neck DATE: 07/31/2023 14:12 INDICATION: Other benign neoplasm of skin of scalp. TECHNIQUE: Multiple grayscale and Doppler ultrasound images of the head and neck were obtained. COMPARISON: Head CT 11/20/2015, thoracic spine CT 09/28/2015 FINDINGS: In the left posterior neck, there is a 2.3 x 1.9 x 0.8 cm hypoechoic subcutaneous mass. In the left posterior neck, there is a 12 mm calcified subcutaneous mass. IMPRESSION: 1. 2.3 cm subcutaneous mass in left posterior neck, most likely a benign mass such as a sebaceous cys t. Neoplasm is not excluded. Consider ultrasound-guided core needle biopsy. 2. 12 mm calcified subcutaneous mass in left posterior neck, likely benign. Reviewed, dictated and finalized at location A. IMPRESSION: 1. 2.3 cm subcutaneous mass in left posterior neck, most likely a benign mass s uch as a sebaceous cyst. Neoplasm is not excluded. Consider ultrasound-guided c ore needle biopsy. 2. 12 mm calcified subcutaneous mass in left posterior neck, likely benign.
== END 2023-07-31 13:52 | disposition home or self-care (01) ==
LOC: CHSIMG 13:52
PROVIDERS: PCP Nurse Practitioner Family; Visit Provider Nurse Practitioner Family
DX: D23.4 Other benign neoplasm of skin of scalp and neck (principal); R22.1 Localized swelling, mass and lump, neck
CPT/HCPCS: 76536

== ENCOUNTER 2023-08-11 11:03 | Outpatient (CLI) | payer MEDICARE, SELFPAY ==
--- NOTE | ~2023-08-11 | XR_ITS ---
EXAMINATION: XR abdomen/kub 1V INDICATION: Left-sided abdominal pain TECHNIQUE: Supine views of the abdomen were obtained on 2 radiographs. COMPARISON: 05/03/2023 FINDINGS: The bowel gas pattern is normal. There is severe lumbar spondylosis. Moderate osteoarthriti s is noted in the hips. The visualized lung bases are clear. There is elevation of the right hemidiap hragm. Surgical clips in the right upper quadrant are likely from prior cholecystectomy. IMPRESSION: 1. No radiographic correlate for the patient's symptoms. Reviewed, dictated and finalized at location F.
[2023-08-11 16:28] LABS: Appearance Urine Sl Cloudy (Clear); Bilirubin Urine Negative (Negative); Blood Urine 2+ (Negative); Color Urine Yellow (Yellow); Glucose Urine UA Trace (Negative); Ketones Urine Negative (Negative); Leukocyte Esterase Ur Trace LEU/UL (Negative); Nitrate Urine Negative (Negative); Protein Urine 1+ (Negative); Specific Grav Ur >= 1.030 (1.010-1.020); Urobilinogen Urine 0.2 mg/dL (0.2-1.0); pH Urine 5.5 (5.0-8.0)
[2023-08-11 16:37] LABS: Add Urine Microscopic? YES; Bacteria Urine 1+ /hpf; Squamous Epithelial Cell Urine Few /hpf (Few)
== END 2023-08-11 11:04 | disposition home or self-care (01) ==
PROVIDERS: PCP Family Medicine; Visit Provider Nurse Practitioner Family
DX: R39.9 Unspecified symptoms and signs involving the genitourinary system (principal)
CPT/HCPCS: 74018; 81001

== ENCOUNTER 2023-08-12 10:25 | Outpatient (RCR) | payer MEDICARE, SELFPAY ==
--- NOTE | 2023-08-12 11:51 | OPREHPOC ---
Outpatient Therapy Plan of Care This is a Multidisciplinary Plan of Care that may contain components documented by all disciplines (PT, OT, and ST.) PT Problem 1 PT Problem #1 Knowledge Deficit PT Goal 1 Goal patient to demonstrate independence with HEP Target Visit 5 PT Problem 2 PT Problem #2 Impaired Strength PT Goal 1 Goal patient to demonstrate 5/5 of B LE in order to return to lifting legs into car Target Visit 10 PT Problem 3 PT Problem #3 Impaired Functional Mobil PT Goal 1 Goal 1. patient to score 20% improvement on LEFS 2. Patient to ambulate 1000' during 6 min walk test with no use of AD 3. Patient to improve Tinetti balance scoring by 4 points to decrease fall risk 4. Patient to perform 5TSTS in less than 15 second without use of UE's to decrease fall risk Target Visit 10
--- NOTE | 2023-08-12 11:51 | PTOPEVAL1 ---
Assessment and note entered by Jeannine Rogers DPT Evaluation Information Assessment Status Evaluation Diagnosis B LE weakness Onset 07/29/23 Subjective Information Patient reports she was going down a flight of stairs and fell. She reports she broke both legs and [facility] . she reports she has hardware in the L LE and history of B TKA. she is now living at home alone with no steps or stairs. she reports she has returned to doing all of her house work independently. she reports she is using both a cane and a walker and is driving. she denies pain. she reports she has difficulty walking prolonged distances and her balance is off . she has difficulty lifting her LE's into the car and into bed. Reported Pain Level Pain Score 0: Self Report Assessment PT Clinical Summary Ms. Mast is a 73 year old female who presents to PT with B LE weakness s/p B LE fractures resulting from a fall. She demonstrates decreased B LE strength, impaired gait and poor balance impairing her ability to ambulate prolonged distances, lift her legs into bed and into the car and increasing her fall risk. She would benefit from skilled PT to address impairments and return to PLOF Plan of Care Interventions Electrical Stimulation,Gait Training,Hot Pack/Cold Pack,Neuro Re-education,Patient/Caregiver Educati ,Therapeutic Activities,Therapeutic Exercise PT Services Indicated Yes Treatment Frequency and 2x weekly for 10 visits Duration These treatments will address the objective and functional deficits as defined above. The patient will be advanced safely and appropriately in order for the patient to progress towards his/her prior level of function. Additional exercises will be introduced and as well as a comprehensive home exercise program upon discharge, if needed, ?to ensure carryover of functional gains achieved in the clinic. This treatment plan has been reviewed and agreement upon by the patient.
--- NOTE | 2023-08-27 10:32 | PCPTNOTE ---
pt arrived 30 min late discussing meds and coping skills contacting dr and pt sent to dr office.
== END 2023-08-25 20:00 | disposition home or self-care (01) ==
LOC: CHSPT 10:25
PROVIDERS: PCP Family Medicine; Visit Provider Nurse Practitioner Family
DX: S72.452D Displaced supracondylar fracture without intracondylar extension of lower end of left femur, subsequent encounter for closed fracture with routine healing (principal); S82.831D Other fracture of upper and lower end of right fibula, subsequent encounter for closed fracture with routine healing; S82.101D Unspecified fracture of upper end of right tibia, subsequent encounter for closed fracture with routine healing; M97.8XXD Periprosthetic fracture around other internal prosthetic joint, subsequent encounter; Z96.659 Presence of unspecified artificial knee joint
CPT/HCPCS: 97110; 97112; 97161

== ENCOUNTER 2023-08-27 10:40 | Emergency (ER) | payer MEDICARE, SELFPAY ==
[2023-08-27] VITALS (45 sets, daily range): BP systolic 102–185; BP diastolic 50–146; PULSE 80–103; RESP 13–21; TEMP 36.2; O2SAT 96–100
--- NOTE | ~2023-08-27 | CT_ITS ---
EXAMINATION: CT brain wo con DATE: 08/27/2023 11:36 INDICATION: Cognitive impairment with increasing confusion. TECHNIQUE: Computed tomography (CT) of the head was performed without intravenous contrast. Sagittal and coronal reconstructions were performed. The mA was adjusted according to patient size. Iterative reconstruction technique was employed. The dose-length product was 605.33 mGy-cm. COMPARISON: None FINDINGS: No acute intracranial hemorrhage, acute infarction or abnormal extra axial fluid collection. There is mild scattered white matter hypoattenuation consistent with chronic small vessel ischemic disease. S ymmetric prominence of the sulci, ventricles and subarachnoid spaces overlying the convexities consis tent with moderate to severe diffuse cerebral volume loss. No mass/mass effect. Changes of bilateral intraocular lens replacement. The orbits, paranasal sinuses and mastoid air cells are normal. IMPRESSION: 1. Age-related changes including moderate to severe diffuse volume loss and mild scattered white alex er hypoattenuation consistent with chronic small vessel ischemic disease. No evident acute intracrani al process. Reviewed, dictated and finalized at location B. IMPRESSION: 1. Age-related changes including moderate to severe diffuse volume loss and mil d scattered white matter hypoattenuation consistent with chronic small vessel i schemic disease. No evident acute intracranial process.
--- NOTE | ~2023-08-27 | XR_ITS ---
Portable chest x-ray Comparison: 04/26/2023 Clinical History: Confusion Findings: Lungs are clear, without focal ventilation or pleural effusion. Stable elevation right hem idiaphragm. Cardiomediastinal silhouette is stable. Bones and soft tissues are unremarkable, aside f rom orthopedic fixation plate at the mid right humerus. Impression: Clear lungs. Reviewed, dictated and finalized at location . Impression: Clear lungs.
[2023-08-27 10:52] LABS: Glucose Point of Care 236 mg/dl (65-105)
--- NOTE | 2023-08-27 10:59 | ED.AMS ---
HPI - Altered Mental Status General Chief Complaint: Altered Mental Status Stated Complaint: altered mental status Time Seen by Provider: 08/27/23 10:59 Source: patient Mode of arrival: ambulatory Limitations: no limitations History of Present Illness HPI narrative: 73-year-old female with a history of generalized anxiety disorder,hypertension, diabetes mellitus, dyslipidemia, coronary artery disease status post stent, hard of hearing, osteoarthritis, bilateral knee replacements, status post back surgery presented to her primary care physician's office with -- cognitive impairment. The patient presented to her primary care physician's office even though she did not have an appointment. At some point she went to the [facility] looking to refill her prescriptions. The patient came to physical therapy 5 times a day. The patient continues to drive in spite of her cognitive impairment. Dr. Tyson her primary care physician is concerned about confusion. The patient lives by herself. The patient is brought in for evaluation and possible placement. On her previous evaluation on 08/11/2023 the patient did not have any cognitive impairment. no history of alcohol or drug abuse. Denied any hallucinations or delusions. MD complaint: altered mental status and confusion Onset (ago): day(s) ( Fifteen days) Timing confirmed by: caregiver Severity: severe Associated symptoms: denies other symptoms Related Data Home Medications Medication Instructions Recorded Confirmed aspirin 81 mg tablet,delayed 81 mg PO DAILY 04/07/19 08/27/23 release (Adult Low Dose Aspirin) blood sugar diagnostic #10 ea 04/07/19 08/27/23 empagliflozin 10 mg tablet 10 mg PO DAILY 11/08/19 08/27/23 (Jardiance) lancets 30 gauge #25 ea 11/08/19 08/27/23 semaglutide 1 mg/dose (4 mg/3 mL) 1 mg subcut WEEKLY 10/26/22 08/27/23 subcutaneous pen injector (Ozempic) clopidogrel 75 mg tablet 75 mg PO DAILY 04/27/23 08/27/23 duloxetine 30 mg capsule,delayed 60 mg PO DAILY 04/27/23 08/27/23 release isosorbide mononitrate 30 mg 45 mg PO DAILY 04/27/23 08/27/23 tablet,extended release 24 hr metformin 500 mg tablet 500 mg PO BID 04/27/23 08/27/23 calcium carbonate 300 mg (750 mg) 300 mg PO TIDWM 05/01/23 08/27/23 chewable tablet (Tums E-X) cholecalciferol (vitamin D3) 125 125 mcg PO DAILY 06/17/23 08/27/23 mcg (5,000 unit) capsule Allergies Allergy/AdvReac Type Severity Reaction Status Date / Time atorvastatin Allergy Severe Joint Pain Verified 08/27/23 10:46 cephalexin Allergy Mild Rash Verified 08/27/23 10:46 Review of Systems Review of Systems: All systems reviewed & are unremarkable except as noted in HPI and below Constitutional: Constitutional: Reports as per HPI and Reports no additional constitutional complaints Eyes: Eyes: Reports as per HPI and Reports no additional eye complaints ENT: Reports system reviewed and no additional complaints, except as documented and Reports as per HPI Cardiovascular: Cardiovascular: Reports as per HPI and Reports no additional cardiovascular complaints Respiratory: Respiratory: Reports as per HPI and Reports no additional respiratory complaints Gastrointestinal: Gastrointestinal: Reports as per HPI and Reports no additional gastrointestinal complaints Genitourinary: Genitourinary: Reports no additional female genitourinary complaints and Reports as per HPI Musculoskeletal: Musculoskeletal: Reports no additional musculoskeletal complaints and Reports as per HPI Integumentary/Breasts: Skin/Breast: Reports system reviewed and no additional complaints, except as docu and Reports as per HPI Neurologic: Reports system reviewed and no additional complaints, except as documented Psychiatric: Psychiatric: Reports no additional psychiatric complaints Endocrine: Endocrine: Reports no additional endocrine complaints Hematologic/Lymphatic: Hematologic/Lymphatic: Reports no additional hematologic/lymphatic comp
--- NOTE | 2023-08-27 11:03 | PC.NURSE ---
Dr Hartley certified physical therapist assistant called to report that they collected a urine at office and sent to be processed
[2023-08-27 11:34] LABS: Appearance Urine Clear (Clear); Bilirubin Urine Negative (Negative); Blood Urine 1+ (Negative); Color Urine Light Yellow (Yellow); Glucose Urine UA Trace (Negative); Ketones Urine Negative (Negative); Leukocyte Esterase Ur Negative LEU/UL (Negative); Nitrate Urine Negative (Negative); Protein Urine Negative (Negative); Urobilinogen Urine 0.2 mg/dL (0.2-1.0); pH Urine 6.5 (5.0-8.0)
[2023-08-27 11:35] LABS: Basophils Absolute Auto 0.03 K/mm3 (0.00-0.10); Basophils Percent Auto 0.3 % (0.0-1.0); Eosinophils Absolute Auto 0.05 K/mm3 (0.02-0.50); Eosinophils Percent Auto 0.6 % (1.0-6.0); Hematocrit 38.8 % (35.0-42.0); Hemoglobin 11.7 g/dL (11.7-13.8); Immature Granulocyte Absolute 0.04 K/mm3 (0.00-0.00); Immature Granulocyte Percent A 0.5 % (0.0-0.0); Lymphocytes Percent Auto 19.4 % (18.0-42.0); Mean Corpuscular HGB Conc 30.2 g/dL (32-36); Mean Corpuscular Hemoglobin 25.4 pg (27.0-31.0); Mean Corpuscular Volume 84.2 fL (78.0-102.0); Monocytes Absolute Auto 0.67 K/mm3 (0.10-0.90); Monocytes Percent Auto 7.6 % (2.0-11.0); Neutrophils Absolute Auto 6.29 K/mm3 (1.70-7.20); Neutrophils Percent Auto 71.6 % (50.0-70.0); Platelet Count Result 271 K/mm3 (150-420); Red Blood Count 4.61 M/mm3 (4.20-5.40); Red Cell Distribution Width 19.1 % (11.6-14.4); White Blood Count 8.8 K/mm3 (4.8-10.8)
--- NOTE | 2023-08-27 11:44 | ECG_ITS ---
Measurements Intervals Olema Rate: 80 P: 55 IA: 158 QRS: 8 QRSD: 85 T: 38 QT: 394 Avg RR 749 QTc: 429 QTcB 455 QTcF 433 Interpretive Statements SINUS RHYTHM LOW QRS VOLTAGE IN PRECORDIAL LEADS [QRS DEFLECTION < 1.0 mV IN CHEST LEADS] BORDERLINE ECG SEE SCANNED COPY FOR SIGNATURE MTDD
[2023-08-27 12:03] LABS: Add Urine Microscopic? YES; Bacteria Urine 1+ /hpf; Squamous Epithelial Cell Urine Few /hpf (Few); WBC Urine None seen /hpf (0-3)
[2023-08-27 12:12] LABS: SARS-CoV-2 RNA PCR Negative (Negative)
[2023-08-27 12:19] LABS: Influenza A QL RT-PCR Negative (Negative); Influenza B QL RT-PCR Negative (Negative); RSV RNA, RT-PCR Negative (Negative)
--- NOTE | 2023-08-27 13:09 | PC.NURSE ---
Pt pushing call light once every couple of minutes. Pt requesting friends to be informed of location, however pt unable to provide numbers at this time. Updated pt on status of waiting for lab results.
[2023-08-27 14:44] LABS: Lactic Acid Reflex 2.2 mmol/L (0.4-2.0)
[2023-08-27 14:45] LABS: Reflex Lactic Acid Yes or No Add Lactic
[2023-08-27 14:51] LABS: Amphetamine Screen Urine Negative (Negative); Barbiturate Screen Urine Negative (Negative); Benzodiazepines Screen Urine Negative (Negative); Cannabinoid Screen Urine Negative (Negative); Cocaine Screen Urine Negative (Negative); Methadone Screen Urine Negative (Negative); Opiate Screen Urine Negative (Negative); Phencyclidine Screen Urine Negative (Negative)
[2023-08-27 15:17] LABS: Chloride 103 mmol/L (98-108); Potassium 4.3 mmol/L (3.5-5.1); Sodium 139 mmol/L (136-145)
[2023-08-27 15:18] LABS: Alanine Aminotransferase 31 U/L (14-59); Albumin Level 3.2 g/dL (3.4-5.0); Alkaline Phosphatase 127 U/L (46-116); Aspartate Amino Transferase 18 U/L (15-37); Blood Urea Nitrogen 12 mg/dL (7-18)
[2023-08-27 15:29] LABS: Anion Gap 12 mmol/L (4-12); Bilirubin,Total 0.7 mg/dL (0.00-1.00); Carbon Dioxide 24 mmol/L (21-32); Estimated CRCL calculation 41 ml/min; Estimated Glomerular Filt Rate > 60; Glucose 211 mg/dL (70-99); Osmolality Calculated 293 mOsm/kg (285-295); Troponin I 4.8 ng/L (0.00-60.4)
[2023-08-27 15:30] LABS: Total Protein 6.9 g/dL (6.4-8.2)
[2023-08-27 15:48] LABS: NT Pro B Type Natriuretic Pept 85 pg/mL (0-450)
--- NOTE | 2023-08-27 15:49 | PC.NURSE ---
Jeanine from social worker assistant contacted and is evaluating pt
[2023-08-27 15:51] LABS: Vitamin B12 175 pg/mL (193-986)
--- NOTE | 2023-08-27 16:28 | PC.NURSE ---
An Employee Sponsor Or Advocate And spoke with pt and pt cousin. Cousin is picking up pt from ED and pt will stay with her cousin diego. Family will begin placement for assisted living arrangements.
--- NOTE | 2023-08-27 16:35 | PC.NURSE ---
Spoke with Elida at bedside. She is alert and orientated x3. Sad affect. She approved I could call her HCPOA, Ashley Hayes after telling ED nurses not to call her. Spoke with Ashley about Elida and the events that lead Elida to ED. Patient is medical stable, but ED staff feels not safe for her to drive herself home and needs some to stay with her. Patient can't afford custodial. Ashley had her almost talk into [facility] few month's ago, but that fell through. Spoke with Elida that she really should consider assisted living again over today's events. Ashley will get her into see Dr. Hartley office tomorrow and contact [facility] to see prices, if any apartments are available, and more info about it.
--- NOTE | 2023-08-27 16:42 | PC.NURSE ---
PT IS AWAITING ARRIVAL OF [facility]SIN [facility] FOR DC. PT IS TO STAY OVERNIGHT WITH [facility]O THIS PM.
[2023-08-29 14:29] LABS: RPR Screen NON-REACTIVE (NON-REACTIVE)
== END 2023-08-27 17:01 | disposition home or self-care (01) ==
PROVIDERS: Emergency Provider Internal Medicine Critical Care Medicine; PCP Family Medicine
DX: E11.9 Type 2 diabetes mellitus without complications (principal); G31.84 Mild cognitive impairment of uncertain or unknown etiology; I10 Essential (primary) hypertension; E78.5 Hyperlipidemia, unspecified; I25.10 Atherosclerotic heart disease of native coronary artery without angina pectoris; F41.1 Generalized anxiety disorder; F32.A Depression, unspecified; Z20.822 Contact with and (suspected) exposure to COVID-19; Z95.5 Presence of coronary angioplasty implant and graft; Z79.85 Long-term (current) use of injectable non-insulin antidiabetic drugs; Z79.84 Long term (current) use of oral hypoglycemic drugs; Z79.82 Long term (current) use of aspirin; Z79.02 Long term (current) use of antithrombotics/antiplatelets; Z91.148 Patient's other noncompliance with medication regimen for other reason; Z79.899 Other long term (current) drug therapy
CPT/HCPCS: 36415; 70450; 71045; 80053; 80307; 81001; 82607; 82948; 83605; 83880; 84443; 84484; 85025; 86592; 87637; 93005; 99284

== ENCOUNTER 2023-08-27 11:11 | Outpatient (NON) | payer MEDICARE, SELFPAY | END 2023-08-27 11:12 | disposition home or self-care (01) | LOC: CHSLAB 11:12 | PROVIDERS: Visit Provider Family Medicine | DX: R41.9 Unspecified symptoms and signs involving cognitive functions and awareness (principal) | CPT/HCPCS: 87077; 87086; 87088; 87181; 87186 ==

== ENCOUNTER 2023-09-15 12:46 | Outpatient (CLI) | payer MEDICARE, SELFPAY ==
--- NOTE | ~2023-09-15 | US_ITS ---
EXAMINATION: US arterial ankle brachial ind DATE: 09/15/2023 13:30 INDICATION: Peripheral vascular disease. TECHNIQUE: Segmental pressures and plethysmographic and Doppler waveforms of the brachial and lower e xtremity arteries were obtained. COMPARISON: None. FINDINGS: Right and left brachial artery pressures of 123 mm Hg and 113 mm Hg, respectively, are concordant (no rmal difference <= 30 mmHg). The right ankle-brachial index (ALICE) could not be measured due to inability to cuff occlude the arter ies (normal >= 0.9-1.0). The right great toe-brachial index (TBI) is 0.72 (normal >= 0.65). Arterial Doppler waveforms are biphasic at the ankle. The left ALICE could not be measured due to inability to cuff occlude the arteries. The left TBI is 0.8 3. Arterial Doppler waveforms are biphasic at the ankle. IMPRESSION: 1. No significant arterial occlusive disease. Reviewed, dictated and finalized at location A.
== END 2023-09-15 12:47 | disposition home or self-care (01) ==
LOC: CHSIMG 12:48
PROVIDERS: PCP Family Medicine; Visit Provider Family Medicine
DX: I73.9 Peripheral vascular disease, unspecified (principal)
CPT/HCPCS: 93922

== ENCOUNTER 2023-10-06 08:14 | Outpatient (CLI) | payer MEDICARE, SELFPAY ==
--- NOTE | ~2023-10-06 | XR_ITS ---
Left Knee Technique: AP, lateral, and sunrise views were obtained. Clinical History: Pain COMPARISON: 07/28/2023 Findings: Total knee arthroplasty hardware is present. Additional internal fixation hardware of an ob lique fracture of the distal femur is again present. Fracture is nearly completely healed, with matur e bridging callus. Soft tissues are unremarkable. No joint effusion is seen. Impression: Near-complete healing of oblique fracture the distal femur with femoral intramedullary lebron in place. Additional knee arthroplasty hardware remains in place. Reviewed, dictated and finalized at location M. Impression: Near-complete healing of oblique fracture the distal femur with femoral intrame dullary lebron in place. Additional knee arthroplasty hardware remains in place.
--- NOTE | ~2023-10-06 | XR_ITS ---
Right Knee Technique: AP, lateral, and sunrise views were obtained. Clinical History: Fracture Findings: Total knee arthroplasty hardware is unchanged in alignment. Possible subacute healing fract ure of the proximal tibia adjacent to the tibial stem is present, similar to prior exam. Old, healed fracture deformity the proximal fibula noted. Possible old, healed fracture of the distal femur. Stab le lateral subluxation of the patella with remodeling of the articular surface. Soft tissues are unre markable. No joint effusion is seen. Impression: Near complete healing of proximal fibular and tibial metaphyseal fractures. Stable knee arthroplasty hardware. Stable lateral patellar subluxation and remodeling of the articular surface. Reviewed, dictated and finalized at location M. Impression: Near complete healing of proximal fibular and tibial metaphyseal fractures. Stable knee arthroplasty hardware. Stable lateral patellar subluxation and remodeling of the articular surface.
== END 2023-10-06 08:15 | disposition home or self-care (01) ==
LOC: CHSIMG 08:17
PROVIDERS: PCP Family Medicine; Visit Provider Orthopaedic Surgery
DX: S72.492D Other fracture of lower end of left femur, subsequent encounter for closed fracture with routine healing (principal); S82.831D Other fracture of upper and lower end of right fibula, subsequent encounter for closed fracture with routine healing; S82.191D Other fracture of upper end of right tibia, subsequent encounter for closed fracture with routine healing; Z96.653 Presence of artificial knee joint, bilateral
CPT/HCPCS: 73562

== ENCOUNTER 2023-11-28 04:47 | Emergency (ER) | payer MEDICARE, SELFPAY ==
--- NOTE | ~2023-11-28 | CT_ITS ---
Noncontrast CT scan of the cervical spine Technique: Multiple contiguous axial [address] images of the cervical spine were obtained and rec onstructed in 2D sagittal and coronal planes on the acquisition scanner. Dose reduction technique was used on this scan by utilizing automated exposure control, adjustment of the mA and/or kV according to patient size. The dose-length product (DLP) was 391.76 mGy-cm. Clinical History: Pain Findings: No fractures or dislocations. There is moderate degenerative disc change throughout the ce rvical spine. Degenerative change at the atlantoaxial articulation with aspiration results in mild ca nal stenosis at the C1 level. There is mild disc bulge at C2-C3. There is disc osteophyte complex at C3-C4 resulting in moderate canal stenosis and probable cord compression, with bilateral neural felisa inal narrowing at this level. There is disc osteophyte complex at C4-C5, mild to moderate canal steno sis, bilateral neural foraminal narrowing, and suspected element of cord compression. There is disc o steophyte complex at C5-C6, with mild canal stenosis and advanced bilateral neural foraminal narrowin g. There is disc osteophyte complex at C6-C7, possible mild canal stenosis and associated bilateral s ignificant neural foraminal narrowing. No prevertebral soft tissue swelling. Impression: No fracture or subluxation of the cervical spine. Severe degenerative spondylosis, as detailed above. Reviewed, dictated and finalized at [facility]. Impression: No fracture or subluxation of the cervical spine. Severe degenerative spondylosis, as detailed above.
--- NOTE | ~2023-11-28 | CT_ITS ---
CT head without contrast Indication: Trauma COMPARISON: 08/27/2023 Technique: Serial scans were obtained through the brain without the administration of contrast. Dose reduction technique was used on this scan by utilizing automated exposure control and iterative recon struction technique. The dose-length product (DLP) was 605.33 mGy-cm. Findings: There is no evidence of intracranial hemorrhage, mass lesion, or acute infarct. The ventri cles and subarachnoid spaces are dilated, consistent with moderate to severe atrophy. Low attenuatio n regions are seen within the periventricular white matter bilaterally, likely representing changes f rom chronic microvascular ischemic disease. There is no evidence of edema, mass effect or midline sh ift. The visualized paranasal sinuses and mastoid air cells are clear. Probable chronic nasal bone f ractures. Impression: No intracranial hemorrhage, mass, or acute infarct. Atrophy and chronic white matter changes, as above. Probable chronic nasal bone fractures. Reviewed, dictated and finalized at location . Impression: No intracranial hemorrhage, mass, or acute infarct. Atrophy and chronic white matter changes, as above. Probable chronic nasal bone fractures.
--- NOTE | ~2023-11-28 | XR_ITS ---
Right Knee Technique: AP, lateral, and sunrise views were obtained. Clinical History: Trauma COMPARISON: 10/06/2023 Findings: There is acute, mildly displaced transverse fracture of the distal femoral metaphyseal babs on, in the region of the proximal portion of the femoral knee arthroplasty component. Remainder knee arthroplasty hardware is unremarkable. Probable chronic, healed fracture deformity of the proximal fi bular neck Soft tissues are unremarkable. No joint effusion is seen. Impression: Acute, mildly displaced transverse periprosthetic fracture the distal femoral metaphyseal region. Chronic, healed fracture deformity the proximal fibular neck, which is similar in appearance to prior exam. Reviewed, dictated and finalized at [facility]. Impression: Acute, mildly displaced transverse periprosthetic fracture the distal femoral m etaphyseal region. Chronic, healed fracture deformity the proximal fibular neck, which is similar in appearance to prior exam.
[2023-11-28 04:47] VITALS: BP 118/74; PULSE 88; RESP 20; TEMP 36.9; O2SAT 98
--- NOTE | 2023-11-28 05:35 | ED.FALL ---
HPI - Fall General Chief Complaint: Fall Stated Complaint: fall Time Seen by Provider: 11/28/23 04:54 History of Present Illness HPI Narrative: Patient is a 73-year-old female who presents ER from the residential after a fall. She is trying to get out of bed when she fell striking her face on the ground and striking her knee. Denies LOC. she has mild pain in her knee and abrasions to her right knee. This surgically repaired knee. She has no fevers or chills. No cough or chest pain. Denies urinary symptoms. No additional concerns. Related Data Home Medications Medication Instructions Recorded Confirmed blood sugar diagnostic #10 ea 04/07/19 10/16/23 duloxetine 30 mg capsule,delayed 60 mg PO DAILY 04/27/23 10/16/23 release Allergies Allergy/AdvReac Type Severity Reaction Status Date / Time atorvastatin Allergy Severe Joint Pain Verified 11/28/23 05:54 cephalexin Allergy Mild Rash Verified 11/28/23 05:54 adhesive Allergy Mild Redness of Uncoded 10/16/23 07:21 Skin Review of Systems Review of Systems: ROS unobtainable: Yes unobtainable due to mental status [facility] Past Medical History Medical History (Updated 11/28/23 @ 06:14 by Abel Hale MD) CAD (coronary artery disease) Cyst, dermoid, scalp and neck Decreased hearing Decreased ROM of right shoulder Dementia Depression Dermoid cyst of skin of back Displaced supracondylar fracture of distal end of left femur without intracondylar extension Encounter for postoperative care Encounter for pre-operative examination Encounter for screening mammogram for malignant neoplasm of breast Fatigue Foreign body in ear DENEEN (generalized anxiety disorder) Hyperlipidemia associated with type 2 diabetes mellitus Hypertension associated with diabetes Left hip pain Left shoulder pain Left shoulder pain snf resident Obesity, Class I, BMI 30-34.9 Osteoarthritis of lumbar spine Pain in finger of right hand Periprosthetic fracture around internal prosthetic knee joint Post-menopausal Right humeral fracture Surgical repair, plate and 8 screws Right wrist pain Sinus congestion Sinusitis Type 2 diabetes mellitus URI (upper respiratory infection) URI (upper respiratory infection) Surgical History Surgical History H/O cataract extraction H/O shoulder surgery H/O: hysterectomy History of back surgery (~1991) History of coronary artery stent placement History of total knee arthroplasty Family History Family History Father , Age 59 Acute myocardial infarction Mother , Age 84 Acute myocardial infarction Cerebrovascular accident Other Cystic fibrosis Other Family history of arthritis Hypertension Social History Social History Smoking status: Never smoker Second hand tobacco smoke exposure: Yes Alcohol intake: current Drinks per week: 1 Alcohol use details: Social occasions only. Substance use: never Substance use type: does not use Do You Feel Safe in your Home?: Yes Lack of Transportation: No Lack of Food: Never True Current Housing: I Have Housing Concerned About Future Housing: No Difficulty Paying Gas/Electric Bills: No Difficulty Paying for Meds: No Currently Unemployed: No Education: High School Diploma/GED Difficulty w/ Childcare or Family Care: No Living arrangements: alone Occupation/Education: retired Gender identity (if verbalized by the patient): Female Sexual Orientation (if Verbalized by the Patient): Straight or Heterosexual Spiritual care concerns: No Exam Narrative: GENERAL: Chronically ill-appearing, well-nourished, and in no acute distress. HEAD: Normocephalic, atraumatic. EYES: PERRL and EOMI. ENT: Mucous membranes moist. 1 cm laceration right lateral nose middle aspe
[2023-11-28] MEDS: LIDOCAINE HCL 1% LOCAL INJ 10 ML VIAL (05:49)
[2023-11-28] MEDS: LIDOCAINE HCL 1% LOCAL INJ 20 ML VIAL 10 ML INFILTRATE (05:50)
[2023-11-28] MEDS: MORPHINE SULFATE (*CRX) 4 MG/ML INJ IV PUSH (06:24)
--- NOTE | 2023-11-28 06:38 | PC.NURSE ---
report called to [facility]. Report given to MEGAN Bojorquez.
[2023-11-28 06:39] VITALS: BP 111/60; PULSE 84; RESP 17; O2SAT 97
--- NOTE | 2023-11-28 07:09 | PC.NURSE ---
report given to kerry amaya at this time. call light within reach. pt awaiting transport to [facility] ED.
== END 2023-11-28 07:31 | disposition short-term general hospital (02) ==
PROVIDERS: Emergency Provider Emergency Medicine; PCP Family Medicine
DX: M97.11XA Periprosthetic fracture around internal prosthetic right knee joint, initial encounter (principal); S01.21XA Laceration without foreign body of nose, initial encounter; I25.10 Atherosclerotic heart disease of native coronary artery without angina pectoris; F03.90 Unspecified dementia, unspecified severity, without behavioral disturbance, psychotic disturbance, mood disturbance, and anxiety; E78.5 Hyperlipidemia, unspecified; I10 Essential (primary) hypertension; E11.9 Type 2 diabetes mellitus without complications; W19.XXXA Unspecified fall, initial encounter
CPT/HCPCS: 12011; 70450; 72125; 73562; 96374; 99285; J2270

== ENCOUNTER 2023-12-05 16:28 | Inpatient (IN) | payer MEDICARE, SELFPAY ==
[2023-12-05 16:30] VITALS: BP 129/60; PULSE 93; RESP 16; TEMP 36.4; O2SAT 96; BMI 25.9
--- NOTE | 2023-12-05 16:30 | ADMGEN ---
This patient, Nessa Mast, was admitted to 2nd Floor Room 207-2. Patient/family oriented to hospital policies and general routines including ID bracelet, bed and alarms, visiting hours, pain management, procedures, bathroom and other care routines, personal items, smoking policy, room service/diet, and visiting hours. Patient does home some memory issues. Bed alarm set, reminded patient to call for assist before transferring. Information on how to activate the Rapid Response Team has been discussed. Patient/Family are encouraged to report perceived risks to care and to ask questions if they do not understand what they are told or what they should do.
--- OUTSIDE RECORDS SUMMARY | 2023-12-05 16:32 | XMS_ITS ---
Author Name Unknown Address [address], [place] Phone Organization [facility] Address [address] [place] [address] Phone Care Team Providers Care Rice Drier Name Role Phone EJCRISTIANE SHARI RUTHERFORD Primary Care Provider [phone] Plan of Treatment No Plan of Treatment Recorded Assessments Includes: Assessments for all patient encounters No Assessments Recorded Medical Equipment - Implanted Devices Includes: Current and historical Devices No Medical Equipment Recorded Medications Administered Includes: Administered Medications in patient's chart No Administered Medications Recorded Results Includes: Results from 12/04/2022 through 12/05/2023 No Results Recorded For Specified Dates History [...] Dates Guarantor Ph one TIA CAMERON Self [phone] Clinical Notes Includes: Signed Clinical Notes starting from 06/07/2022 No Clinical Notes Recorded
--- OUTSIDE RECORDS SUMMARY | 2023-12-05 16:32 | XMS_ITS | Clinical Summary ---
Author Name Unknown Address [address], [place] Phone Organization [facility] Address [address], [place] Phone Care Team Providers Care Body Line Finisher Name Role Phone SHARI BUNCH DO Wendie Primary Care Provider [phone] Reason for Visit and Chief Complaint [Patient [...] Time Diagnosis [Patient Encounter] ANTHONY WRIGHT APRN-FPA, SAP PI DEVELOPER-BC 01/29/2022 10:14AM 11:59PM Insurance Includes: Active Insurance Policies No Insurance Coverage Recorded Guarantor Relationship Effective Dates Guarantor Ph one TIA CAMERON Self [id number] Clinical Notes Includes: Clinical Notes from this encounter No Clinical
[2023-12-05 21:10] VITALS: PULSE 60
[2023-12-05] MEDS: QUEtiapine FUMARATE 100 MG TABLET PO (21:10)
[2023-12-05] MEDS: APIXABAN 2.5 MG TABLET PO (21:10)
[2023-12-05] MEDS: LORazepam (*CRX) 0.5 MG TABLET 0.25 MG PO (21:10)
[2023-12-05] MEDS: METOPROLOL TARTRATE TAB 25 MG, METOPROLOL TARTRATE TAB 12.5 MG 37.5 MG PO (21:10)
[2023-12-05] MEDS: ROSUVASTATIN 10 MG TABLET PO (21:10)
[2023-12-05] MEDS: guaiFENesin 12 HR 600 MG TABCR PO (21:11)
[2023-12-05] MEDS: HYDROcodone/acetaminophen (*CRX) 5-325 MG TABLET 1 TAB PO (21:19)
[2023-12-05 21:40] LABS: Glucose Point of Care 203 mg/dl (65-105)
[2023-12-06] VITALS: BP 102/47; PULSE 84; RESP 16; TEMP 36.4; O2SAT 98
--- NOTE | 2023-12-06 00:20 | PC.NURSE ---
Patient called out frequently for help; did not use call light appropriately. Patient appeared very anxious, and tried to get out of bed several times. Demanded to go home, and did not seem to understand that she was in a hospital. Patient had been given 100 mg of seroquel and 0.25 mg of Ativan at HS. These did not appear to be effective.
[2023-12-06 08:00] VITALS: BP 156/67; PULSE 75; RESP 16; TEMP 35.8; O2SAT 98
[2023-12-06 08:10] LABS: Glucose Point of Care 160 mg/dl (65-105)
[2023-12-06] MEDS: polyethylene glycoL 3350 17 GM POWD.PACK PO (09:20)
[2023-12-06] MEDS: CALCIUM CARBONATE (TUMS) 500 MG (200 MG ELEMENTAL) 300 MG PO ×3 (09:21→17:17)
[2023-12-06 09:22] VITALS: PULSE 75
[2023-12-06] MEDS: METOPROLOL TARTRATE TAB 25 MG, METOPROLOL TARTRATE TAB 12.5 MG 37.5 MG PO ×2 (09:22→20:41)
[2023-12-06] MEDS: ISOSORBIDE MONONITRATE 30 MG TAB.ER.24H PO (09:22)
[2023-12-06] MEDS: LORazepam (*CRX) 0.5 MG TABLET 0.25 MG PO ×2 (09:23→20:42)
[2023-12-06] MEDS: EMPAGLIFLOZIN 10 MG TABLET PO (09:24)
[2023-12-06] MEDS: ASCORBIC ACID 500 MG TABLET PO (09:25)
[2023-12-06] MEDS: ASPIRIN 81 MG ENTERIC TABLET PO (09:25)
[2023-12-06] MEDS: LOSARTAN POTASSIUM 25 MG TABLET PO (09:25)
[2023-12-06] MEDS: guaiFENesin 12 HR 600 MG TABCR PO ×2 (09:26→20:42)
[2023-12-06] MEDS: DULoxetine HCL 30 MG CAPSULE.DR 60 MG PO (09:26)
[2023-12-06] MEDS: CLOPIDOGREL BISULFATE 75 MG TABLET PO (09:26)
[2023-12-06] MEDS: APIXABAN 2.5 MG TABLET PO ×2 (09:26→20:42)
[2023-12-06] MEDS: PANTOPRAZOLE 40 MG TABLET PO (09:27)
[2023-12-06] MEDS: FERROUS SULFATE 325 MG TABLET DR PO (09:27)
[2023-12-06] MEDS: ISOSORBIDE MONONITRATE 15 MG TAB.ER.24H PO (09:35)
--- NOTE | 2023-12-06 10:33 | PM.IMHP ---
H&P: HPI History of Present Illness Date/Time: 12/06/23 10:33 Chief Complaint: Swing, Fall Narrative: This is a 73 year old female that has a PMH of DM Type II, CAD, Dementia, HTN, HLD. Pt has a fall that showed she had a obliqu commuted fracture of the distal femoral meta diaphyseal with a p osterior displacment of the distal fracture fragment. On 10/29 patient has right femur intrameduallary nailing. Patient is here for therapy she is weight bearing as tolerated. she followed up with Dr Sexton. Patient currently is COVID positive and she had a fall with several laceration and she has facial stitches and jh noted on leg. Patient is very confused and attempts to get out of bed and or combative at night time. We will continue with therapy but a prn will be added. Patient does not remember the following morning. Patient continue to remain weak at time and confused. She will particapate with therapy at this time. we will monitor vitals and labs and treat according. Review of Systems Review of Systems: cough , Weakness All systems reviewed & are unremarkable except as noted in HPI and below PMFSH Past Medical History Medical History (Updated 12/09/23 @ 08:15 by Tejas Yang NP) CAD (coronary artery disease) Cyst, dermoid, scalp and neck Decreased hearing Decreased ROM of right shoulder Dementia Depression Dermoid cyst of skin of back Displaced supracondylar fracture of distal end of left femur without intracondylar extension Encounter for postoperative care Encounter for pre-operative examination Encounter for screening mammogram for malignant neoplasm of breast Fatigue Foreign body in ear DENEEN (generalized anxiety disorder) Hyperlipidemia associated with type 2 diabetes mellitus Hypertension associated with diabetes Left hip pain Left shoulder pain Left shoulder pain 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 Obesity, Class I, BMI 30-34.9 Osteoarthritis of lumbar spine Pain in finger of right hand Periprosthetic fracture around internal prosthetic knee joint Post-menopausal Right humeral fracture Surgical repair, plate and 8 screws Right wrist pain Sinus congestion Sinusitis Type 2 diabetes mellitus URI (upper respiratory infection) URI (upper respiratory infection) Surgical History Surgical History H/O cataract extraction H/O shoulder surgery H/O: hysterectomy History of back surgery (~1991) History of coronary artery stent placement History of total knee arthroplasty Family History Family History Father , Age 59 Acute myocardial infarction Mother , Age 84 Acute myocardial infarction Cerebrovascular accident Other Cystic fibrosis Other Family history of arthritis Hypertension Social History Social History Smoking status: Never smoker Second hand tobacco smoke exposure: Yes Alcohol intake: never Drinks per week: 1 Alcohol use details: Social occasions only. Substance use: never Substance use type: does not use Do You Feel Safe in your Home?: Yes Lack of Transportation: No Lack of Food: Never True Current Housing: I Have Housing Concerned About Future Housing: No Difficulty Paying Gas/Electric Bills: No Difficulty Paying for Meds: No Currently Unemployed: No Education: High School Diploma/GED Difficulty w/ Childcare or Family Care: No Living arrangements: alone Occupation/Education: retired Gender identity (if verbalized by the patient): Female Sexual Orientation (if Verbalized by the Patient): Straight or Heterosexual Spiritual care concerns: No Meds Home Medications and Allergies Home Medications Medication Instructions Recorded Confirmed Type blood sugar diagnostic #10 ea 04/07/19 12/05/23 History duloxetine 30 mg capsule,delayed 60 mg PO DAILY 04/27/
[2023-12-06 12:02] LABS: Glucose Point of Care 183 mg/dl (65-105)
[2023-12-06] MEDS: HYDROcodone/acetaminophen (*CRX) 5-325 MG TABLET 1 TAB PO ×2 (14:11→20:41)
[2023-12-06 16:00] VITALS: BP 127/59; PULSE 80; RESP 16; TEMP 36.1; O2SAT 98
[2023-12-06 16:49] LABS: Glucose Point of Care 178 mg/dl (65-105)
[2023-12-06] MEDS: ACETAMINOPHEN 325 MG TABLET 650 MG PO (18:48)
[2023-12-06 20:38] LABS: Glucose Point of Care 172 mg/dl (65-105)
[2023-12-06 20:41] VITALS: PULSE 106
[2023-12-06] MEDS: QUEtiapine FUMARATE 100 MG TABLET PO (20:42)
[2023-12-06] MEDS: ROSUVASTATIN 10 MG TABLET PO (20:42)
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
[2023-12-07] VITALS: BP 144/70; PULSE 106; RESP 16; TEMP 36.8; O2SAT 95
[2023-12-07 08:00] VITALS: BP 149/67; PULSE 71; RESP 16; TEMP 35.8; O2SAT 99
[2023-12-07 08:01] LABS: Glucose Point of Care 154 mg/dl (65-105)
[2023-12-07] MEDS: polyethylene glycoL 3350 17 GM POWD.PACK PO (08:10)
[2023-12-07] MEDS: CALCIUM CARBONATE (TUMS) 500 MG (200 MG ELEMENTAL) 300 MG PO ×3 (08:10→16:09)
[2023-12-07] MEDS: DULoxetine HCL 30 MG CAPSULE.DR 60 MG PO (08:11)
[2023-12-07] MEDS: PANTOPRAZOLE 40 MG TABLET PO (08:11)
[2023-12-07 08:12] VITALS: PULSE 75
[2023-12-07] MEDS: METOPROLOL TARTRATE TAB 25 MG, METOPROLOL TARTRATE TAB 12.5 MG 37.5 MG PO ×2 (08:12→20:02)
[2023-12-07] MEDS: ACETAMINOPHEN 325 MG TABLET 650 MG PO ×2 (08:12→20:03)
[2023-12-07] MEDS: ISOSORBIDE MONONITRATE 30 MG TAB.ER.24H PO (08:13)
[2023-12-07] MEDS: APIXABAN 2.5 MG TABLET PO ×2 (08:13→20:04)
[2023-12-07] MEDS: ASPIRIN 81 MG ENTERIC TABLET PO (08:13)
[2023-12-07] MEDS: CLOPIDOGREL BISULFATE 75 MG TABLET PO (08:13)
[2023-12-07] MEDS: ASCORBIC ACID 500 MG TABLET PO (08:14)
[2023-12-07] MEDS: LOSARTAN POTASSIUM 25 MG TABLET PO (08:14)
[2023-12-07] MEDS: EMPAGLIFLOZIN 10 MG TABLET PO (08:14)
[2023-12-07] MEDS: FERROUS SULFATE 325 MG TABLET DR PO (08:15)
[2023-12-07] MEDS: guaiFENesin 12 HR 600 MG TABCR PO ×2 (08:15→20:04)
[2023-12-07] MEDS: LORazepam (*CRX) 0.5 MG TABLET 0.25 MG PO ×2 (08:15→20:03)
[2023-12-07] MEDS: ISOSORBIDE MONONITRATE 15 MG TAB.ER.24H PO (08:32)
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
[2023-12-07 11:59] LABS: Glucose Point of Care 198 mg/dl (65-105)
[2023-12-07] MEDS: HYDROcodone/acetaminophen (*CRX) 5-325 MG TABLET 1 TAB PO (13:50)
[2023-12-07 16:00] VITALS: BP 136/58; PULSE 81; RESP 16; TEMP 36.4; O2SAT 96
[2023-12-07 16:22] LABS: Glucose Point of Care 169 mg/dl (65-105)
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
[2023-12-07 20:02] VITALS: PULSE 92
[2023-12-07] MEDS: QUEtiapine FUMARATE 100 MG TABLET PO (20:02)
[2023-12-07] MEDS: ROSUVASTATIN 10 MG TABLET PO (20:03)
[2023-12-07 20:09] LABS: Glucose Point of Care 169 mg/dl (65-105)
[2023-12-08] VITALS: BP 137/53; PULSE 92; RESP 16; TEMP 36.7; O2SAT 95
[2023-12-08] MEDS: HYDROcodone/acetaminophen (*CRX) 5-325 MG TABLET 1 TAB PO ×2 (02:33→10:25)
--- OUTSIDE RECORDS SUMMARY | 2023-12-08 07:21 | XMS_ITS | Continuity of Care Document ---
Author Name Unknown Address [address] [place] [address] Phone [facility] Address [address] [place] [address] Phone Support Name Relationship Address Phone DO Philip Hartley Primary Care Provider [address] [place] [address] MD Ankur Fofana Attending Provider [address] [facility] [address] [place] [id number] UNKNOWN, DOCTOR Referring Provider Unknown Zoraida vailable DONY Forte Primary Care Provider [address] [place] [address] MD Allan Davila Emergency Provider [address] [place] [address] Unavailable MD Abel Hale Emergency Provider [place] [address] MD Dario Marionophe [place] [address] Care Teams Patient Care Team Team Status: Active Member Role Status Pat Hartley DO Primary Care Provider Active Visit Care Team Team Status: Inactive Member Role Status Pat Hartley DO Primary Care Provider Active Ankur Fofana MD Attending Provider Active Visit Care Team Team Status: Inactive Member Role Status Pat Hartley DO Primary Care Provider Active Ankur Fofana MD Attending Provider Active Visit Care Team Team Status: Inactive Member Role Status
[2023-12-08 07:35] VITALS: BP 140/50; PULSE 65; RESP 16; TEMP 36.1; O2SAT 99
--- OUTSIDE RECORDS SUMMARY | 2023-12-08 07:38 | XMS_ITS | Clinical Summary ---
Author Name Unknown Address [address], [place] Phone Organization [facility] Address [address], [place] Phone Care Team Providers Care Structural Steel Erector Name Role Phone SHARI BUNCH DO Wendie Primary Care Provider [phone] Reason for Visit and Chief Complaint [Patient [...] Time Diagnosis [Patient Encounter] ANTHONY WRIGHT APRN-FPA, ONLINE COMMUNICATIONS MANAGER-BC 01/29/2022 10:14AM 11:59PM Insurance Includes: Active Insurance Policies No Insurance Coverage Recorded Guarantor Relationship Effective Dates Guarantor Ph one TIA CAMERON Self [id number] Clinical Notes Includes: Clinical Notes from this encounter No Clinical
--- OUTSIDE RECORDS SUMMARY | 2023-12-08 07:38 | XMS_ITS ---
Care Plan - [facility] Created on: December 08, 2023 TIA CAMERON : [id number] Sex: Female Author Name Unknown Address [address] [place] [address] Phone Organization [facility] Address [address] [place] [address] Phone Care Team Providers Care Vacuum Technician Name Role Phone SHARI BUNCH DO Primary Care Provider [phone]
[2023-12-08 08:13] LABS: Glucose Point of Care 151 mg/dl (65-105)
[2023-12-08] MEDS: CALCIUM CARBONATE (TUMS) 500 MG (200 MG ELEMENTAL) 300 MG PO ×3 (09:08→18:02)
[2023-12-08 09:17] VITALS: PULSE 65
[2023-12-08] MEDS: ISOSORBIDE MONONITRATE 30 MG TAB.ER.24H PO (09:17)
[2023-12-08] MEDS: EMPAGLIFLOZIN 10 MG TABLET PO (09:17)
[2023-12-08] MEDS: ASCORBIC ACID 500 MG TABLET PO (09:17)
[2023-12-08] MEDS: FERROUS SULFATE 325 MG TABLET DR PO (09:17)
[2023-12-08] MEDS: METOPROLOL TARTRATE TAB 25 MG, METOPROLOL TARTRATE TAB 12.5 MG 37.5 MG PO ×2 (09:17→21:35)
[2023-12-08] MEDS: guaiFENesin 12 HR 600 MG TABCR PO ×2 (09:18→21:34)
[2023-12-08] MEDS: ASPIRIN 81 MG ENTERIC TABLET PO (09:18)
[2023-12-08] MEDS: APIXABAN 2.5 MG TABLET PO ×2 (09:18→21:36)
[2023-12-08] MEDS: CLOPIDOGREL BISULFATE 75 MG TABLET PO (09:18)
[2023-12-08] MEDS: LORazepam (*CRX) 0.5 MG TABLET 0.25 MG PO ×2 (09:18→21:36)
[2023-12-08] MEDS: ISOSORBIDE MONONITRATE 15 MG TAB.ER.24H PO (09:18)
[2023-12-08] MEDS: DULoxetine HCL 30 MG CAPSULE.DR 60 MG PO (09:18)
[2023-12-08] MEDS: polyethylene glycoL 3350 17 GM POWD.PACK PO (09:19)
[2023-12-08] MEDS: LOSARTAN POTASSIUM 25 MG TABLET PO (09:19)
[2023-12-08] MEDS: PANTOPRAZOLE 40 MG TABLET PO (09:20)
[2023-12-08 12:03] LABS: Glucose Point of Care 177 mg/dl (65-105)
[2023-12-08 16:35] VITALS: BP 136/52; PULSE 73; RESP 16; TEMP 36.4; O2SAT 96
[2023-12-08 17:21] LABS: Glucose Point of Care 158 mg/dl (65-105)
[2023-12-08] MEDS: ACETAMINOPHEN 325 MG TABLET 650 MG PO (19:45)
[2023-12-08 21:35] VITALS: PULSE 80
[2023-12-08] MEDS: ROSUVASTATIN 10 MG TABLET PO (21:35)
[2023-12-08] MEDS: QUEtiapine FUMARATE 100 MG TABLET PO (21:35)
[2023-12-08 21:48] LABS: Glucose Point of Care 156 mg/dl (65-105)
[2023-12-09] VITALS: BP 134/50; PULSE 80; RESP 16; TEMP 36.4; O2SAT 97
[2023-12-09 08:00] VITALS: BP 148/71; PULSE 68; RESP 18; TEMP 35.7; O2SAT 98
[2023-12-09] MEDS: CLOPIDOGREL BISULFATE 75 MG TABLET PO (08:06)
[2023-12-09] MEDS: DULoxetine HCL 30 MG CAPSULE.DR 60 MG PO (08:06)
[2023-12-09] MEDS: APIXABAN 2.5 MG TABLET PO ×2 (08:06→21:03)
[2023-12-09] MEDS: polyethylene glycoL 3350 17 GM POWD.PACK PO (08:06)
[2023-12-09] MEDS: ASPIRIN 81 MG ENTERIC TABLET PO (08:06)
[2023-12-09 08:07] VITALS: PULSE 70
[2023-12-09] MEDS: METOPROLOL TARTRATE TAB 25 MG, METOPROLOL TARTRATE TAB 12.5 MG 37.5 MG PO ×2 (08:07→21:00)
[2023-12-09] MEDS: LOSARTAN POTASSIUM 25 MG TABLET PO (08:07)
[2023-12-09 08:10] LABS: Glucose Point of Care 152 mg/dl (65-105)
[2023-12-09] MEDS: guaiFENesin 12 HR 600 MG TABCR PO ×2 (08:10→21:03)
[2023-12-09] MEDS: LORazepam (*CRX) 0.5 MG TABLET 0.25 MG PO ×2 (08:10→21:00)
[2023-12-09] MEDS: PANTOPRAZOLE 40 MG TABLET PO (08:10)
[2023-12-09] MEDS: FERROUS SULFATE 325 MG TABLET DR PO (08:12)
[2023-12-09] MEDS: EMPAGLIFLOZIN 10 MG TABLET PO (08:12)
[2023-12-09] MEDS: ISOSORBIDE MONONITRATE 15 MG TAB.ER.24H PO (08:17)
[2023-12-09] MEDS: ISOSORBIDE MONONITRATE 30 MG TAB.ER.24H PO (08:27)
[2023-12-09] MEDS: ASCORBIC ACID 500 MG TABLET PO (08:27)
[2023-12-09] MEDS: CALCIUM CARBONATE (TUMS) 500 MG (200 MG ELEMENTAL) 300 MG PO ×3 (08:27→17:03)
--- NOTE | 2023-12-09 08:57 | PM.EVENT ---
Event Note Event Note Event Note: Patient has become more confused at night with some combativeness I have placed a 1x prn haladol if needed. discussed with the nurse to give if last resort I would rather. will add glucerna between each meal as she is not taking enough food.
[2023-12-09 10:59] LABS: Glucose Point of Care 231 mg/dl (65-105)
[2023-12-09] MEDS: INSULIN HUMAN LISPRO (*BKC) 1,000 UNITS/10 ML VIAL SUB-Q (11:31)
[2023-12-09] MEDS: ACETAMINOPHEN 325 MG TABLET 650 MG PO (13:18)
[2023-12-09 16:35] VITALS: BP 147/51; PULSE 70; RESP 18; TEMP 36.5; O2SAT 99
[2023-12-09 17:25] LABS: Glucose Point of Care 157 mg/dl (65-105)
[2023-12-09 21:00] VITALS: PULSE 75
[2023-12-09] MEDS: QUEtiapine FUMARATE 100 MG TABLET PO (21:02)
[2023-12-09] MEDS: ROSUVASTATIN 10 MG TABLET PO (21:04)
[2023-12-09 21:14] LABS: Glucose Point of Care 144 mg/dl (65-105)
[2023-12-10] VITALS: BP 97/51; PULSE 58; RESP 20; TEMP 36.1; O2SAT 97
--- NOTE | 2023-12-10 00:01 | PC.NURSE ---
Pt asleep and respirations are even and unlabored. No signs of discomfort noted.
--- NOTE | 2023-12-10 02:08 | PC.NURSE ---
Pt asleep and no signs of discomfort noted.
--- NOTE | 2023-12-10 04:05 | PC.NURSE ---
Pt asleep and no signs of discomfort noted.
--- NOTE | 2023-12-10 06:05 | PC.NURSE ---
Pt asleep and no signs of discomfort noted.
[2023-12-10 07:43] LABS: Glucose Point of Care 158 mg/dl (65-105)
[2023-12-10 07:49] VITALS: BP 157/70; PULSE 60; RESP 16; TEMP 36; O2SAT 99
[2023-12-10] MEDS: ASCORBIC ACID 500 MG TABLET PO (08:40)
[2023-12-10] MEDS: CALCIUM CARBONATE (TUMS) 500 MG (200 MG ELEMENTAL) 300 MG PO ×3 (08:40→16:27)
[2023-12-10] MEDS: APIXABAN 2.5 MG TABLET PO ×2 (08:40→21:02)
[2023-12-10] MEDS: FERROUS SULFATE 325 MG TABLET DR PO (08:42)
[2023-12-10] MEDS: ISOSORBIDE MONONITRATE 15 MG TAB.ER.24H PO (08:42)
[2023-12-10] MEDS: LORazepam (*CRX) 0.5 MG TABLET 0.25 MG PO ×2 (08:42→21:03)
[2023-12-10] MEDS: ISOSORBIDE MONONITRATE 30 MG TAB.ER.24H PO (08:42)
[2023-12-10 08:43] VITALS: PULSE 60
[2023-12-10] MEDS: DULoxetine HCL 30 MG CAPSULE.DR 60 MG PO (08:43)
[2023-12-10] MEDS: METOPROLOL TARTRATE TAB 25 MG, METOPROLOL TARTRATE TAB 12.5 MG 37.5 MG PO ×2 (08:43→21:01)
[2023-12-10] MEDS: EMPAGLIFLOZIN 10 MG TABLET PO (08:44)
[2023-12-10] MEDS: guaiFENesin 12 HR 600 MG TABCR PO ×2 (08:44→21:02)
[2023-12-10] MEDS: LOSARTAN POTASSIUM 25 MG TABLET PO (08:45)
[2023-12-10] MEDS: polyethylene glycoL 3350 17 GM POWD.PACK PO (08:45)
[2023-12-10] MEDS: ASPIRIN 81 MG ENTERIC TABLET PO (08:45)
[2023-12-10] MEDS: CLOPIDOGREL BISULFATE 75 MG TABLET PO (08:45)
[2023-12-10] MEDS: PANTOPRAZOLE 40 MG TABLET PO (08:45)
--- NOTE | 2023-12-10 10:03 | PM.EVENT ---
Event Note Event Note Event Note: Mrs. Mast is seen sitting up in bed in no acute distress. She denies headache, dizziness, chest pain, shortness of breath, abdominal pain, nausea, vomiting, diarrhea or constipation. She states she is eating and drinking well and had a bowel movement this morning. She is set to see her orthopedist tomorrow. Right knee with dry dressing intact without drainage. Patient reports the swelling has decreased. She does not have any questions or concerns at the time of my visit.
--- NOTE | 2023-12-10 10:47 | PM.IMPN ---
Progress Note: A&P Assessment and Plan (1) Closed fracture of proximal end of right fibula: Qualifiers: Encounter type: initial encounter Fracture morphology: other fracture Qualified Code(s): S82.831A - Other fracture of upper and lower end of right fibula, initial encounter for closed fracture Code(s): S82.831A - Other fracture of upper and lower end of right fibula, initial encounter for closed fracture Status: Acute Assessment and Plan: S/p fall and repair. Patient was seen at [facility] and underwent a right IMN on 11/29/[address] Carbajal. RLE WBAT PT/OT ordered Pain control and bowel regimen DVT prophylaxis with Eliquis 2.5 mg BID Surgical dressing remains in place and is clean, dry, and intact Dr Carbajal follow up scheduled 12/11/23 (2) Dementia with agitation: Code(s): F03.911 - Unspecified dementia, unspecified severity, with agitation Status: Acute Assessment and Plan: Haladol prn Seraqual continue home medication Ativan 0.25 mg BID (3) Type 2 diabetes mellitus: Code(s): E11.9 - Type 2 diabetes mellitus without complications Status: Acute Assessment and Plan: monitor blood sugars treat per sliding scale adjust medication accordingly Will check CMP 12/11 (4) Hyperlipidemia associated with type 2 diabetes mellitus: Code(s): E11.69 - Type 2 diabetes mellitus with other specified complication; E78.5 - Hyperlipidemia, unspecified Status: Acute Assessment and Plan: continue home medication (5) Generalized anxiety disorder: Code(s): F41.1 - Generalized anxiety disorder Status: Acute Assessment and Plan: prn medication (6) GERD (gastroesophageal reflux disease): Qualifiers: Esophagitis presence: without esophagitis Qualified Code(s): K21.9 - Gastro-esophageal reflux disease without esophagitis Code(s): K21.9 - Gastro-esophageal reflux disease without esophagitis Status: Acute Assessment and Plan: continue home medication (7) COVID-19: Code(s): U07.1 - COVID-19 Status: Acute Assessment and Plan: treat symptoms droplett isolation continue to monitor oxygen prn not requiring oxygen at this time. Plan Patient continues to progress wtih therapy. She is set to see her orthopedist tomorrow for a follow up. Plan will be to discharge to [facility]. Time Spent With Patient Time with patient: Greater than 35 minutes Subjective Date/time seen: 12/10/23 10:47 Interval history: Mrs. Mast is seen sitting up in bed in no acute distress. She denies headache, dizziness, chest pain, shortness of breath, abdominal pain, nausea, vomiting, diarrhea or constipation. She states she is eating and drinking well and had a bowel movement this morning. She is set to see her orthopedist tomorrow. Right knee with dry dressing intact without drainage. Patient reports the swelling has decreased. She does not have any questions or concerns at the time of my visit. Review of Systems Review of Systems: All systems reviewed & are unremarkable except as noted in HPI and below Exam Narrative: General: well appearing, frail, appears stated age. HEENT: normocephalic, atraumatic. Mucous membranes moist. EOMI, PERRLA, bilateral sclera anicteric, no conjunctival injection. Neck supple without JVD, lymphadenopathy, or bruit. Small laceration to right nasal bridge with suture present. Respiratory: clear to auscultation bilaterally. No rales/rhonic/wheezes. Cardiovascular: Regular rate and rhythm, normal S1-S2 upon auscultation. No murmurs, rubs, or clicks. PMI is nondisplaced, capillary refill less than 3 second. Abdomen: Soft, round, no pulsatile masses, nondistended and nontender. No rebound, no guarding. No CVA tenderness, no hepatosplenomegaly. Bowel sounds present to all four quadrants. No high pitch or tinkling sounds, resonant to percussion. Extremities: N
[2023-12-10] MEDS: HYDROcodone/acetaminophen (*CRX) 5-325 MG TABLET 1 TAB PO (11:23)
[2023-12-10 11:32] LABS: Glucose Point of Care 207 mg/dl (65-105)
[2023-12-10] MEDS: INSULIN HUMAN LISPRO (*BKC) 1,000 UNITS/10 ML VIAL SUB-Q (11:40)
[2023-12-10 16:00] VITALS: BP 113/51; PULSE 61; RESP 16; TEMP 36.3; O2SAT 99
[2023-12-10 16:33] LABS: Glucose Point of Care 181 mg/dl (65-105)
[2023-12-10 21:01] VITALS: PULSE 61
[2023-12-10] MEDS: QUEtiapine FUMARATE 100 MG TABLET PO (21:02)
[2023-12-10] MEDS: ROSUVASTATIN 10 MG TABLET PO (21:02)
[2023-12-10 21:08] LABS: Glucose Point of Care 173 mg/dl (65-105)
[2023-12-11] VITALS: BP 88/32; PULSE 65; RESP 16; TEMP 36.4; O2SAT 99
[2023-12-11 05:17] LABS: Basophils Absolute Auto 0.03 K/mm3 (0.00-0.10); Basophils Percent Auto 0.3 % (0.0-1.0); Eosinophils Absolute Auto 0.29 K/mm3 (0.02-0.50); Eosinophils Percent Auto 3.2 % (1.0-6.0); Hematocrit 28.6 % (35.0-42.0); Hemoglobin 8.7 g/dL (11.7-13.8); Immature Granulocyte Absolute 0.06 K/mm3 (0.00-0.00); Immature Granulocyte Percent A 0.7 % (0.0-0.0); Lymphocytes Absolute Auto 3.05 K/mm3 (1.10-4.50); Lymphocytes Percent Auto 33.8 % (18.0-42.0); Mean Corpuscular HGB Conc 30.4 g/dL (32-36); Mean Corpuscular Hemoglobin 28.1 pg (27.0-31.0); Mean Corpuscular Volume 92.3 fL (78.0-102.0); Monocytes Absolute Auto 0.67 K/mm3 (0.10-0.90); Monocytes Percent Auto 7.4 % (2.0-11.0); Neutrophils Absolute Auto 4.92 K/mm3 (1.70-7.20); Neutrophils Percent Auto 54.6 % (50.0-70.0); Platelet Count Result 345 K/mm3 (150-420)
[2023-12-11 05:35] LABS: Alanine Aminotransferase 17 U/L (14-59); Albumin Level 2.7 g/dL (3.4-5.0); Alkaline Phosphatase 135 U/L (46-116); Anion Gap 9 mmol/L (4-12); Aspartate Amino Transferase 16 U/L (15-37); Bilirubin,Total 0.5 mg/dL (0.00-1.00); Blood Urea Nitrogen 16 mg/dL (7-18); Calcium 8.8 mg/dL (8.5-10.1); Carbon Dioxide 25 mmol/L (21-32); Chloride 104 mmol/L (98-108); Estimated CRCL calculation 45 ml/min; Estimated Glomerular Filt Rate > 60; Glucose 151 mg/dL (70-99); Osmolality Calculated 290 mOsm/kg (285-295); Sodium 138 mmol/L (136-145); Total Protein 6.4 g/dL (6.4-8.2)
[2023-12-11 05:38] LABS: Partial Thromboplastin Time 24.8 Sec (23.9-30.70); Prothrombin Time 10.7 Seconds (9.50-12.1)
[2023-12-11 07:05] VITALS: BP 101/54; PULSE 66; RESP 16; TEMP 35.9; O2SAT 98
[2023-12-11] MEDS: CALCIUM CARBONATE (TUMS) 500 MG (200 MG ELEMENTAL) 300 MG PO ×3 (07:12→17:05)
[2023-12-11 07:13] VITALS: PULSE 65
[2023-12-11] MEDS: METOPROLOL TARTRATE TAB 25 MG, METOPROLOL TARTRATE TAB 12.5 MG 37.5 MG PO ×2 (07:13→21:46)
[2023-12-11] MEDS: LOSARTAN POTASSIUM 25 MG TABLET PO (07:13)
[2023-12-11] MEDS: polyethylene glycoL 3350 17 GM POWD.PACK PO (07:13)
[2023-12-11] MEDS: ISOSORBIDE MONONITRATE 30 MG TAB.ER.24H PO (07:15)
[2023-12-11] MEDS: ISOSORBIDE MONONITRATE 15 MG TAB.ER.24H PO (07:15)
[2023-12-11] MEDS: FERROUS SULFATE 325 MG TABLET DR PO (07:15)
[2023-12-11] MEDS: ASCORBIC ACID 500 MG TABLET PO (07:16)
[2023-12-11] MEDS: PANTOPRAZOLE 40 MG TABLET PO (07:16)
[2023-12-11] MEDS: LORazepam (*CRX) 0.5 MG TABLET 0.25 MG PO ×2 (07:16→21:37)
--- NOTE | 2023-12-11 07:16 | PC.NURSE ---
Patient left with family for MD appointment and is expected to be off unit for several hours.
[2023-12-11] MEDS: guaiFENesin 12 HR 600 MG TABCR PO ×2 (07:17→21:36)
[2023-12-11] MEDS: CLOPIDOGREL BISULFATE 75 MG TABLET PO (07:17)
[2023-12-11] MEDS: APIXABAN 2.5 MG TABLET PO ×2 (07:18→21:37)
[2023-12-11] MEDS: ASPIRIN 81 MG ENTERIC TABLET PO (07:18)
[2023-12-11] MEDS: DULoxetine HCL 30 MG CAPSULE.DR 60 MG PO (07:18)
[2023-12-11] MEDS: EMPAGLIFLOZIN 10 MG TABLET PO (07:20)
[2023-12-11 11:54] LABS: Glucose Point of Care 232 mg/dl (65-105)
[2023-12-11] MEDS: ACETAMINOPHEN 325 MG TABLET 650 MG PO ×2 (12:13→21:37)
[2023-12-11 16:00] VITALS: BP 131/62; PULSE 75; RESP 18; TEMP 36.6; O2SAT 98
[2023-12-11 16:29] LABS: Glucose Point of Care 150 mg/dl (65-105)
[2023-12-11] MEDS: ROSUVASTATIN 10 MG TABLET PO (21:37)
[2023-12-11] MEDS: QUEtiapine FUMARATE 100 MG TABLET PO (21:37)
[2023-12-11 21:45] LABS: Glucose Point of Care 147 mg/dl (65-105)
[2023-12-11 21:46] VITALS: PULSE 86
[2023-12-12] VITALS: BP 127/62; PULSE 86; RESP 16; TEMP 36.4; O2SAT 98
[2023-12-12 08:00] VITALS: BP 115/42; PULSE 75; RESP 16; TEMP 35.8; O2SAT 99
[2023-12-12 08:04] LABS: Glucose Point of Care 156 mg/dl (65-105)
[2023-12-12] MEDS: polyethylene glycoL 3350 17 GM POWD.PACK PO (08:44)
[2023-12-12] MEDS: ASCORBIC ACID 500 MG TABLET PO (08:45)
[2023-12-12] MEDS: CALCIUM CARBONATE (TUMS) 500 MG (200 MG ELEMENTAL) 300 MG PO ×3 (08:45→16:41)
[2023-12-12] MEDS: ACETAMINOPHEN 325 MG TABLET 650 MG PO ×3 (08:46→20:39)
[2023-12-12] MEDS: EMPAGLIFLOZIN 10 MG TABLET PO (08:46)
[2023-12-12] MEDS: ISOSORBIDE MONONITRATE 30 MG TAB.ER.24H PO (08:46)
[2023-12-12] MEDS: LOSARTAN POTASSIUM 25 MG TABLET PO (08:47)
[2023-12-12] MEDS: ISOSORBIDE MONONITRATE 15 MG TAB.ER.24H PO (08:47)
[2023-12-12] MEDS: FERROUS SULFATE 325 MG TABLET DR PO (08:47)
[2023-12-12] MEDS: PANTOPRAZOLE 40 MG TABLET PO (08:48)
[2023-12-12] MEDS: DULoxetine HCL 30 MG CAPSULE.DR 60 MG PO (08:48)
[2023-12-12] MEDS: LORazepam (*CRX) 0.5 MG TABLET 0.25 MG PO ×2 (08:49→20:39)
[2023-12-12] MEDS: guaiFENesin 12 HR 600 MG TABCR PO ×2 (08:49→20:39)
[2023-12-12 08:50] VITALS: PULSE 75
[2023-12-12] MEDS: METOPROLOL TARTRATE TAB 25 MG, METOPROLOL TARTRATE TAB 12.5 MG 37.5 MG PO ×2 (08:50→20:39)
[2023-12-12] MEDS: ASPIRIN 81 MG ENTERIC TABLET PO (08:51)
[2023-12-12] MEDS: APIXABAN 2.5 MG TABLET PO ×2 (08:51→20:39)
[2023-12-12] MEDS: CLOPIDOGREL BISULFATE 75 MG TABLET PO (08:51)
--- NOTE | 2023-12-12 11:13 | PC.NURSE ---
Patient stated that she couldn't breathe. Patient was restful and breathing was noted to be even and unlabored. SPO2 spot check showed patient's O2 is 100% on room air. Patient became tearful and was upset because she has no friends and is in the hospital.
[2023-12-12 11:38] LABS: Glucose Point of Care 196 mg/dl (65-105)
[2023-12-12 16:40] VITALS: BP 118/46; PULSE 80; RESP 16; TEMP 36.3; O2SAT 99
[2023-12-12] MEDS: INSULIN HUMAN LISPRO (*BKC) 1,000 UNITS/10 ML VIAL SUB-Q (16:43)
[2023-12-12 16:45] LABS: Glucose Point of Care 203 mg/dl (65-105)
[2023-12-12] MEDS: QUEtiapine FUMARATE 100 MG TABLET PO (20:39)
[2023-12-12] MEDS: ROSUVASTATIN 10 MG TABLET PO (20:39)
[2023-12-12 20:46] LABS: Glucose Point of Care 163 mg/dl (65-105)
[2023-12-13] VITALS: BP 125/62; PULSE 72; RESP 16; TEMP 36.3; O2SAT 97
--- NOTE | 2023-12-13 07:04 | PM.DS ---
DS: Admitting Diagnosis Discharge Date 12/12 Admitting Diagnosis weakness, DS: Discharge Diagnosis Discharge Diagnosis (1) Closed fracture of proximal end of right fibula: Qualifiers: Encounter type: initial encounter Fracture morphology: other fracture Qualified Code(s): S82.831A - Other fracture of upper and lower end of right fibula, initial encounter for closed fracture Code(s): S82.831A - Other fracture of upper and lower end of right fibula, initial encounter for closed fracture Status: Acute Assessment and Plan: S/p fall and repair. Patient was seen at [facility] and underwent a right IMN on 11/29/[address] Carbajal. RLE WBAT PT/OT ordered Pain control and bowel regimen DVT prophylaxis with Eliquis 2.5 mg BID Surgical dressing remains in place and is clean, dry, and intact Dr Carbajal follow up scheduled 12/11/23 (2) Dementia with agitation: Code(s): F03.911 - Unspecified dementia, unspecified severity, with agitation Status: Acute Assessment and Plan: Haladol prn Seraqual continue home medication Ativan 0.25 mg BID (3) Type 2 diabetes mellitus: Code(s): E11.9 - Type 2 diabetes mellitus without complications Status: Acute Assessment and Plan: monitor blood sugars treat per sliding scale adjust medication accordingly Will check CMP 12/11 (4) Hyperlipidemia associated with type 2 diabetes mellitus: Code(s): E11.69 - Type 2 diabetes mellitus with other specified complication; E78.5 - Hyperlipidemia, unspecified Status: Acute Assessment and Plan: continue home medication (5) Generalized anxiety disorder: Code(s): F41.1 - Generalized anxiety disorder Status: Acute Assessment and Plan: prn medication (6) GERD (gastroesophageal reflux disease): Qualifiers: Esophagitis presence: without esophagitis Qualified Code(s): K21.9 - Gastro-esophageal reflux disease without esophagitis Code(s): K21.9 - Gastro-esophageal reflux disease without esophagitis Status: Acute Assessment and Plan: continue home medication (7) COVID-19: Code(s): U07.1 - COVID-19 Status: Acute Assessment and Plan: treat symptoms droplett isolation continue to monitor oxygen prn not requiring oxygen at this time. Plan Patient continues to progress wtih therapy. She is set to see her orthopedist tomorrow for a follow up. Plan will be to discharge to [facility]. DS: Summary Hospital Course Reason for hospitalization: rehab Hospital Course: This is a 73 year old female that has a PMH of DM Type II, CAD, Dementia, HTN, HLD. Pt has a fall that showed she had a oblique commuted fracture of the distal femoral meta diaphyseal with a posterior displacement of the distal fracture fragment. On 11/28 patient has right femur intramedullary nailing. Patient is here for therapy she is weight bearing as tolerated. she followed up with Dr Sexton. Patient currently is COVID positive and she had a fall with several laceration and she has facial stitches and jh noted on leg. She was admitted as a swing bed patient for further rehab. Overall she did well and was discharged to the half-way. Time Spent with Patient Time attestation: Total time spent providing and/or coordinating discharge services:65 Exam Narrative: General: well appearing, frail, appears stated age. HEENT: normocephalic, atraumatic. Mucous membranes moist. EOMI, PERRLA, bilateral sclera anicteric, no conjunctival injection. Neck supple without JVD, lymphadenopathy, or bruit. Small laceration to right nasal bridge with suture present. Respiratory: clear to auscultation bilaterally. No rales/rhonic/wheezes. Cardiovascular: Regular rate and rhythm, normal S1-S2 upon auscultation. No murmurs, rubs, or clicks. PMI is nondisplaced, capillary refill less than 3 second. Abdomen: Soft, round, no pulsatile masses,
[2023-12-13 07:45] VITALS: BP 133/74; PULSE 72; RESP 16; TEMP 36.1; O2SAT 99
[2023-12-13 08:07] LABS: Glucose Point of Care 160 mg/dl (65-105)
[2023-12-13] MEDS: polyethylene glycoL 3350 17 GM POWD.PACK PO (08:50)
[2023-12-13 08:51] VITALS: PULSE 72
[2023-12-13] MEDS: METOPROLOL TARTRATE TAB 25 MG, METOPROLOL TARTRATE TAB 12.5 MG 37.5 MG PO (08:51)
[2023-12-13] MEDS: PANTOPRAZOLE 40 MG TABLET PO (08:52)
[2023-12-13] MEDS: ISOSORBIDE MONONITRATE 30 MG TAB.ER.24H PO (08:52)
[2023-12-13] MEDS: LOSARTAN POTASSIUM 25 MG TABLET PO (08:52)
[2023-12-13] MEDS: ASCORBIC ACID 500 MG TABLET PO (08:52)
[2023-12-13] MEDS: DULoxetine HCL 30 MG CAPSULE.DR 60 MG PO (08:52)
[2023-12-13] MEDS: ISOSORBIDE MONONITRATE 15 MG TAB.ER.24H PO (08:52)
[2023-12-13] MEDS: APIXABAN 2.5 MG TABLET PO (08:52)
[2023-12-13] MEDS: HYDROcodone/acetaminophen (*CRX) 5-325 MG TABLET 1 TAB PO (08:52)
[2023-12-13] MEDS: CLOPIDOGREL BISULFATE 75 MG TABLET PO (08:52)
[2023-12-13] MEDS: CALCIUM CARBONATE (TUMS) 500 MG (200 MG ELEMENTAL) 300 MG PO (08:52)
[2023-12-13] MEDS: EMPAGLIFLOZIN 10 MG TABLET PO (08:52)
[2023-12-13] MEDS: FERROUS SULFATE 325 MG TABLET DR PO (08:53)
[2023-12-13] MEDS: guaiFENesin 12 HR 600 MG TABCR PO (08:53)
[2023-12-13] MEDS: ASPIRIN 81 MG ENTERIC TABLET PO (08:53)
[2023-12-13] MEDS: LORazepam (*CRX) 0.5 MG TABLET 0.25 MG PO (08:53)
--- NOTE | 2023-12-13 11:00 | PC.NURSE ---
Patient discharging to alf. All belongings gathered together and sent with patient. Patient had no IV access at discharge. Sutures to right side of nose removed per DONY Thomas. All discharge instructions and education sent with patient in [facility] packet. Report called to Gail at [facility] and rehab at [facility]. Patient transferred from chair to wheelchair with 1 assist. Left floor via wheelchair accompanied by alfhome energy inspector.
--- NOTE | 2023-12-18 10:55 | PC.NURSE ---
discharge to care home, no questions from care home staff regarding instructions
== END 2023-12-13 11:00 | DRG 559 ==
PROVIDERS: Admitting Provider Internal Medicine; PCP Family Medicine; Visit Provider Nurse Practitioner Acute Care
DX: S72.401D Unspecified fracture of lower end of right femur, subsequent encounter for closed fracture with routine healing (principal); U07.1 COVID-19; F03.911 Unspecified dementia, unspecified severity, with agitation; I25.10 Atherosclerotic heart disease of native coronary artery without angina pectoris; I10 Essential (primary) hypertension; E11.9 Type 2 diabetes mellitus without complications; E78.5 Hyperlipidemia, unspecified; M47.816 Spondylosis without myelopathy or radiculopathy, lumbar region; F32.A Depression, unspecified; F41.1 Generalized anxiety disorder; Z96.659 Presence of unspecified artificial knee joint; Z95.5 Presence of coronary angioplasty implant and graft; Z79.82 Long term (current) use of aspirin; Z79.02 Long term (current) use of antithrombotics/antiplatelets; Z79.01 Long term (current) use of anticoagulants
CPT/HCPCS: 36415; 80053; 82948; 85025; 85610; 85730; 97110; 97161; 97166; 97530; 97535; A9270; J1815

== ENCOUNTER 2024-02-14 12:44 | Emergency (ER) | payer MEDICARE, SELFPAY ==
--- NOTE | ~2024-02-14 | XR_ITS ---
XR chest 1V portable 02/14/2024 13:03 Indication: Weakness Procedure: AP portable chest Comparison: Comparison to multiple prior studies sequentially, with oldest reviewed study dated 06/10. Findings: Elevated right diaphragm. Heart size normal. No focal air space disease, pulmonary edema, p leural effusion or suspected pneumothorax. Impression: 1: No acute cardiopulmonary disease. Reviewed, dictated and finalized at location B. Impression: 1: No acute cardiopulmonary disease.
[2024-02-14 12:46] VITALS: BP 135/68; PULSE 64; RESP 18; TEMP 36.6; O2SAT 100
[2024-02-14 12:47] VITALS: BP 144/85; PULSE 85; RESP 20; O2SAT 95
[2024-02-14 12:55] VITALS: O2SAT 97
--- NOTE | 2024-02-14 12:57 | ECG_ITS ---
Test Date: 2024-02-14 13:28:23 Measurements Intervals [place] Rate: 60 P: 19 SD: 171 QRS: 0 QRSD: 90 T: 42 QT: 418 QTc: 418 Interpretive Statements SINUS RHYTHM BASELINE ARTIFACT- I, II, III, AVR, AVL, AVF, V1-V6 NORMAL ECG No previous ECG available for comparison Electronically Signed On 02-15-2024 20:18:33 CDT by Daniel Stroud D.O.
[2024-02-14] MEDS: SODIUM CHLORIDE 0.9% IV 1,000 ML 999 ML IV CONT (13:15)
[2024-02-14 13:16] LABS: Basophils Absolute Auto 0.02 K/mm3 (0.00-0.10); Basophils Percent Auto 0.2 % (0.0-1.0); Eosinophils Absolute Auto 0.19 K/mm3 (0.02-0.50); Eosinophils Percent Auto 2.2 % (1.0-6.0); Hematocrit 34.3 % (35.0-42.0); Hemoglobin 10.6 g/dL (11.7-13.8); Immature Granulocyte Absolute 0.03 K/mm3 (0.00-0.00); Immature Granulocyte Percent A 0.3 % (0.0-0.0); Lymphocytes Absolute Auto 2.44 K/mm3 (1.10-4.50); Lymphocytes Percent Auto 27.8 % (18.0-42.0); Mean Corpuscular HGB Conc 30.9 g/dL (32-36); Mean Corpuscular Volume 87.3 fL (78.0-102.0); Mean Platelet Volume 9.1 fl (9.2-11.8); Monocytes Absolute Auto 0.57 K/mm3 (0.10-0.90); Monocytes Percent Auto 6.5 % (2.0-11.0); Neutrophils Absolute Auto 5.54 K/mm3 (1.70-7.20); Platelet Count Result 254 K/mm3 (150-420); Red Blood Count 3.93 M/mm3 (4.20-5.40); White Blood Count 8.8 K/mm3 (4.8-10.8)
[2024-02-14 13:30] LABS: Alanine Aminotransferase 19 U/L (14-59); Albumin Level 3.2 g/dL (3.4-5.0); Alkaline Phosphatase 89 U/L (46-116); Anion Gap 12 mmol/L (4-12); Aspartate Amino Transferase 17 U/L (15-37); Bilirubin,Total 0.6 mg/dL (0.00-1.00); Blood Urea Nitrogen 9 mg/dL (7-18); Calcium 9.7 mg/dL (8.5-10.1); Carbon Dioxide 26 mmol/L (21-32); Chloride 104 mmol/L (98-108); Estimated CRCL calculation 42 ml/min; Estimated Glomerular Filt Rate 60; Glucose 127 mg/dL (70-99); Osmolality Calculated 294 mOsm/kg (285-295); Potassium 3.9 mmol/L (3.5-5.1); Sodium 142 mmol/L (136-145); Total Protein 7.2 g/dL (6.4-8.2)
[2024-02-14 13:33] LABS: Lactic Acid Reflex 1.6 mmol/L (0.4-2.0)
[2024-02-14 13:51] LABS: SARS-CoV-2 RNA PCR Negative (Negative)
[2024-02-14 13:53] LABS: Influenza A QL RT-PCR Negative (Negative); Influenza B QL RT-PCR Negative (Negative); RSV RNA, RT-PCR Negative (Negative)
[2024-02-14 14:01] LABS: Add Urine Microscopic? YES; Bilirubin Urine Negative (Negative); Blood Urine Negative (Negative); Color Urine Light Yellow (Yellow); Glucose Urine UA 2+ (Negative); Ketones Urine Trace (Negative); Leukocyte Esterase Ur Trace LEU/UL (Negative); Nitrate Urine Negative (Negative); Protein Urine Negative (Negative); Specific Grav Ur 1.015 (1.010-1.020); Urobilinogen Urine 0.2 mg/dL (0.2-1.0)
[2024-02-14 14:04] LABS: Appearance Urine Sl Cloudy (Clear)
[2024-02-14 14:07] LABS: RBC Urine None seen /hpf (0-2); WBC Urine 16-20 /hpf (0-3)
[2024-02-14 14:08] LABS: Bacteria Urine 2+ /hpf; Squamous Epithelial Cell Urine Moderate /hpf (Few)
--- NOTE | 2024-02-14 14:14 | ED.AMS ---
HPI - Altered Mental Status General Chief Complaint: Altered Mental Status Stated Complaint: confused Time Seen by Provider: 02/14/24 12:52 Source: patient and EMS Mode of arrival: EMS Limitations: altered mental status History of Present Illness HPI narrative: This is a 73-year-old female with a history of dementia presents from the senior care after staff complains that she has been confused and a bit combative, otherwise she is doing well her vitals are stable afebrile no chest pain or shortness of breath no flank pain no nausea vomiting no diarrhea constipation. MD complaint: confusion Onset (ago): hour(s) Timing confirmed by: caregiver Severity: mild Consistency of symptoms: constant Related Data Home Medications Medication Instructions Recorded Confirmed blood sugar diagnostic #10 ea 04/07/19 12/05/23 carboxymethylcellulose sodium 1 % 1 drp EACH EYE TID 02/14/24 02/14/24 eye drops (Artificial Tears (carboxymethylcellulose)) lorazepam 0.5 mg tablet (Ativan) 0.5 mg PO BID 02/14/24 02/14/24 Allergies Allergy/AdvReac Type Severity Reaction Status Date / Time atorvastatin Allergy Severe Joint Pain Verified 01/28/24 12:34 cephalexin Allergy Mild Rash Verified 01/28/24 12:34 adhesive Allergy Mild Redness of Uncoded 01/07/24 13:24 Skin Review of Systems Review of Systems: All systems reviewed & are unremarkable except as noted in HPI and below PMFSH Past Medical History Medical History CAD (coronary artery disease) Cyst, dermoid, scalp and neck Decreased hearing Decreased ROM of right shoulder Dementia Depression Dermoid cyst of skin of back Displaced supracondylar fracture of distal end of left femur without intracondylar extension Encounter for postoperative care Encounter for pre-operative examination Encounter for screening mammogram for malignant neoplasm of breast Fatigue Foreign body in ear DENEEN (generalized anxiety disorder) Hyperlipidemia associated with type 2 diabetes mellitus Hypertension associated with diabetes Left hip pain Left shoulder pain Left shoulder pain senior living resident Obesity, Class I, BMI 30-34.9 Osteoarthritis of lumbar spine Pain in finger of right hand Periprosthetic fracture around internal prosthetic knee joint Post-menopausal Right humeral fracture Surgical repair, plate and 8 screws Right wrist pain Sinus congestion Sinusitis Type 2 diabetes mellitus URI (upper respiratory infection) URI (upper respiratory infection) Surgical History Surgical History H/O cataract extraction H/O shoulder surgery H/O: hysterectomy History of back surgery (~1991) History of coronary artery stent placement History of total knee arthroplasty Family History Family History Father , Age 59 Acute myocardial infarction Mother , Age 84 Acute myocardial infarction Cerebrovascular accident Other Cystic fibrosis Other Family history of arthritis Hypertension Social History Social History Smoking status: Never smoker Second hand tobacco smoke exposure: Yes Alcohol intake: never Drinks per week: 1 Alcohol use details: Social occasions only. Substance use: never Substance use type: does not use Do You Feel Safe in your Home?: Yes Lack of Transportation: No Lack of Food: Never True Current Housing: I Have Housing Concerned About Future Housing: No Difficulty Paying Gas/Electric Bills: No Difficulty Paying for Meds: No Currently Unemployed: No Education: High School Diploma/GED Difficulty w/ Childcare or Family Care: No Living arrangements: alone Occupation/Education: retired Gender identity (if verbalized by the patient): Female Sexual Orientation (if Verbalized by the Patie
[2024-02-14] MEDS: levoFLOXacin 500 MG TABLET PO (14:21)
--- NOTE | 2024-02-14 14:27 | PC.NURSE ---
Called [facility] and report given to RN for pt return via w/c. Report given that pt will be prescribed antibx. Pt assisted w/ dressing and awaiting staff from rehab to return.
[2024-02-14 14:36] VITALS: BP 137/81; PULSE 63; RESP 20; TEMP 36.6; O2SAT 100
--- NOTE | 2024-02-14 14:44 | PC.NURSE ---
Pt d/c via w/c w/ NH staff, instructed RN on need for f/u and antibx given. Explained in detail and length to pts. POA/cousing that is in room w/ her about her dx and reason for AMS due to UTI dx. After much discussion w/ pts cousin, she reports understanding and will have pt f/u w/ PMD and make sure she is getting f/u as directed.
--- NOTE | 2024-02-17 14:07 | PC.NURSE ---
FINAL URINE CULTURE RESULTS: ISOLATE 1: GREATER THAN 100,000 CFU/ML OF AEROCOCCUS URINAE. PER RESULTS AND DR MATIAS, NO CHANGE IN TREATMENT NEEDED.
--- NOTE | 2024-02-21 13:44 | PC.NURSE ---
final blood cultures x2 reviewed, no growth after 5 days. no change in plan of care
== END 2024-02-14 14:46 ==
PROVIDERS: Emergency Provider Emergency Medicine
DX: N30.00 Acute cystitis without hematuria (principal); F03.90 Unspecified dementia, unspecified severity, without behavioral disturbance, psychotic disturbance, mood disturbance, and anxiety; I25.10 Atherosclerotic heart disease of native coronary artery without angina pectoris; I10 Essential (primary) hypertension; Z79.899 Other long term (current) drug therapy; Z20.822 Contact with and (suspected) exposure to COVID-19
CPT/HCPCS: 36415; 71045; 80053; 81001; 83605; 85025; 87040; 87077; 87086; 87088; 87637; 93005; 96360; 99283; A9270; J7030

== ENCOUNTER 2024-02-20 11:39 | Outpatient (CLI) | payer MEDICARE, SELFPAY ==
--- NOTE | ~2024-02-20 | CT_ITS ---
EXAMINATION: CT brain wo con DATE: 02/20/2024 12:25 INDICATION: Dementia. Altered mental status. TECHNIQUE: Computed tomography (CT) of the head was performed without intravenous contrast. Sagittal and coronal reconstructions were performed. Automated exposure control and iterative reconstruction t echnique were employed. The dose-length product was 1135.00 mGy-cm. COMPARISON: head CT dated 11/28/2023 FINDINGS: No fractures identified. There are large bilateral subdural hematomas with regions of hypoattenuation consistent with acute hemorrhage or prominent on the left but with large regions of fluid isodense t o the white matter suggesting significantly subacute component. The hematomas overlie the bilateral f rontal, parietal and temporal lobes measuring up to 2.2 cm in maximal thickness on both the left and right. There is significant mass effect upon the bilateral cerebral hemispheres with effacement of th e majority the sulci and with significant decrease in size of the lateral and third ventricles when c ompared with the study dated 11/28/2023. No acute acute. No solid mass lesions identified. Changes of bilateral intraocular lens replacement. The orbits, paranasal sinuses and mastoid air cells are norm al. IMPRESSION: 1. Large bilateral likely acute on subacute subdural hematomas with significant mass effect upon the bilateral cerebral hemispheres. I discussed these findings with the [facility] ED physician. I attempte d to notify the referring physician however there was no answer at this time. I therefore directed e sterile processing technologist to escort the patient from the waiting area where she had been held to the emergenc y department. Reviewed, dictated and finalized at location A. IMPRESSION: 1. Large bilateral likely acute on subacute subdural hematomas with significant mass effect upon the bilateral cerebral hemispheres. I discussed these finding s with the [facility] ED physician. I attempted to notify the referring physician however there was no answer at this time. I therefore directed the CT technolo gist to escort the patient from the waiting area where she had been held to the emergency department.
== END 2024-02-20 11:40 | disposition home or self-care (01) ==
PROVIDERS: PCP Family Medicine; Visit Provider Family Medicine
DX: S06.5XAA Traumatic subdural hemorrhage with loss of consciousness status unknown, initial encounter (principal); F03.911 Unspecified dementia, unspecified severity, with agitation
CPT/HCPCS: 70450

== ENCOUNTER 2024-02-20 13:00 | Emergency (ER) | payer MEDICARE, SELFPAY ==
--- NOTE | 2024-02-20 13:07 | ED.AMS ---
HPI - Altered Mental Status General Chief Complaint: Recheck/Abnormal Lab/Rx Stated Complaint: abnormal head ct Source: family and other ( primary medical doctor) Mode of arrival: wheelchair Limitations: altered mental status, clinical condition and dementia History of Present Illness HPI narrative: patient is a 73-year-old female who has her primary doctor seeing her lately for altered mental status on top of her dementia. She was seen in the ER this past week per CT scan brain does not appear to be done at that time. Outpatient CT scan was done this morning by the primary doctor and found bilateral subdural hematomas which are quite large in size. At this time, the primary doctors talking to the family as she is a full DNR to see if hospice is a consideration for this patient. We will wait planning per primary doctor. patient lives in the nursing facility. MD complaint: altered mental status Onset (ago): week(s) (1) Timing confirmed by: other ( Primary doctor) Severity: moderate Consistency of symptoms: waxing and waning Context: other ( Patient lives at the nursing facility and was adding altered mental status and CT scan was positive for subdural hematomas) Associated symptoms: denies other symptoms Related Data Home Medications Medication Instructions Recorded Confirmed blood sugar diagnostic #10 ea 04/07/19 12/05/23 carboxymethylcellulose sodium 1 % 1 drp EACH EYE TID 02/14/24 02/14/24 eye drops (Artificial Tears (carboxymethylcellulose)) lorazepam 0.5 mg tablet (Ativan) 0.5 mg PO BID 02/14/24 02/14/24 Allergies Allergy/AdvReac Type Severity Reaction Status Date / Time atorvastatin Allergy Severe Joint Pain Verified 02/18/24 10:05 cephalexin Allergy Mild Rash Verified 02/18/24 10:05 adhesive Allergy Mild Redness of Uncoded 01/07/24 13:24 Skin Review of Systems Review of Systems: All systems reviewed & are unremarkable except as noted in HPI and below Constitutional: Constitutional: Reports no additional constitutional complaints Eyes: Eyes: Reports no additional eye complaints ENT: Reports system reviewed and no additional complaints, except as documented Cardiovascular: Cardiovascular: Reports no additional cardiovascular complaints Respiratory: Respiratory: Reports no additional respiratory complaints Gastrointestinal: Gastrointestinal: Reports no additional gastrointestinal complaints Genitourinary: Genitourinary: Reports no additional female genitourinary complaints Musculoskeletal: Musculoskeletal: Reports no additional musculoskeletal complaints Integumentary/Breasts: Skin/Breast: Reports system reviewed and no additional complaints, except as docu Neurologic: Reports system reviewed and no additional complaints, except as documented Psychiatric: Psychiatric: Reports no additional psychiatric complaints Endocrine: Endocrine: Reports no additional endocrine complaints Hematologic/Lymphatic: Hematologic/Lymphatic: Reports no additional hematologic/lymphatic complaints Allergic/Immunologic: Allergic/Immunologic: Reports no additional allergic/immunologic complaints PMFSH Past Medical History Medical History CAD (coronary artery disease) Cyst, dermoid, scalp and neck Decreased hearing Decreased ROM of right shoulder Dementia Depression Dermoid cyst of skin of back Displaced supracondylar fracture of distal end of left femur without intracondylar extension Encounter for postoperative care Encounter for pre-operative examination Encounter for screening mammogram for malignant neoplasm of breast Fatigue Foreign body in ear DENEEN (generalized anxiety disorder) Hyperlipidemia associated with type 2 diabetes mellitus Hypertension associated with diabetes Left hip pain Left shoulder pain Left shoulder pain correction resident Obesity, Class I, BMI 30-34.9 Osteoarthritis of lumbar spine Pain in finger of right hand Periprosthetic
[2024-02-20 13:10] VITALS: BP 107/77; PULSE 66; RESP 18; TEMP 36.4; O2SAT 100
--- NOTE | 2024-02-20 13:15 | PC.NURSE ---
Dr. Hartley made aware patient's POA is here in the ED. He is coming over to speak with her.
--- NOTE | 2024-02-20 13:17 | PC.NURSE ---
blood glucose 414
--- NOTE | 2024-02-20 13:32 | PC.NURSE ---
Dr. Hartley at bedside speaking with POA about plan of care.
--- NOTE | 2024-02-20 13:40 | PC.NURSE ---
Patient to be discharged back to skilled nursing for hospice.
[2024-02-20 13:45] VITALS: BP 107/77; PULSE 66; RESP 18; TEMP 36.4; O2SAT 100
== END 2024-02-20 13:45 | disposition hospice, home (50) ==
PROVIDERS: Emergency Provider Emergency Medicine; PCP Family Medicine
DX: S06.5XAA Traumatic subdural hemorrhage with loss of consciousness status unknown, initial encounter (principal); R41.82 Altered mental status, unspecified; F03.90 Unspecified dementia, unspecified severity, without behavioral disturbance, psychotic disturbance, mood disturbance, and anxiety; I25.10 Atherosclerotic heart disease of native coronary artery without angina pectoris; I10 Essential (primary) hypertension; E11.9 Type 2 diabetes mellitus without complications; Z79.899 Other long term (current) drug therapy; X58.XXXA Exposure to other specified factors, initial encounter
CPT/HCPCS: 99283